=== PATIENT | female | born 1970 | race Caucasian/White ===

== ENCOUNTER 2019-08-21 00:13 | Emergency (ER) | payer MEDICARE, MEDICAID, SELFPAY ==
--- NOTE | ~2019-08-21 | CT_ITS ---
EXAMINATION: CT BRAIN W/O DATE: 08/21/2019 01:03 INDICATION: Head injury after fall. Headache. TECHNIQUE: Computed tomography (CT) of the head was performed without intravenous contrast. The dose- length product was 605.33 mGy-cm. The mA was adjusted according to patient size. Iterative reconstruc tion technique was employed. COMPARISON: CT dated 12/06/1999 FINDINGS: Study limited by motion artifact. Normal brain parenchymal volume for age. Normal colmenares-whit e differentiation. No acute intracranial hemorrhage, infarction, mass or mass effect. No ventriculomegaly or midline shift. Midline sagittal images demonstrate a normal corpus callosum, c raniovertebral junction and sella turcica. Basilar cisterns are patent. Small air-fluid level right maxillary sinus. IMPRESSION: 1. No acute intracranial abnormality. 2: Chronic age-related findings. 3: Small air-fluid level right maxillary sinus which may reflect sinusitis or sequela of facial traum a. Consider correlation with maxillofacial CT as clinically indicated. Vision radiologist verbally discussed this case with clinician as per documentation in their report, which was faxed and scanned into PACS with this exam. Reviewed, dictated and finalized at location A. IMPRESSION: 1. No acute intracranial abnormality. 2: Chronic age-related findings. 3: Small air-fluid level right maxillary sinus which may reflect sinusitis or s equela of facial trauma. Consider correlation with maxillofacial CT as clinical ly indicated. Vision radiologist verbally discussed this case with clinician as per documenta tion in their report, which was faxed and scanned into PACS with this exam.
[2019-08-21 00:21] VITALS: BP 131/86; PULSE 109; RESP 16; TEMP 37.2; O2SAT 98
--- NOTE | 2019-08-21 00:48 | ED.WOUNDLAC ---
HPI - Wound/Laceration General Chief Complaint: Wound/Laceration Stated Complaint: head lac Time Seen by Provider: 08/21/19 00:29 Source: patient, old records reviewed and other (Caregiver) Mode of arrival: ambulatory Limitations: no limitations History of Present Illness HPI narrative: Patient is a 48-year-old female who presents [facility] the emergency department from local [facility] with a caregiver from the facility after sustaining a head injury. Patient fell and struck her head causing a laceration on the left forehead. Patient does not remember what happened. Patient has history of seizure disorder and caregiver thinks it is possible she may have had a seizure. Patient also has intellectual disabilities as well. Location: face Place: home Patient tetanus UTD: Yes (2013) Context: accidental and fall Associated symptoms: none Related Data Allergies Allergy/AdvReac Type Severity Reaction Status Date / Time No Known Allergies Allergy Unknown Verified 05/24/06 10:54 Review of Systems Review of Systems: All systems reviewed & are unremarkable except as noted in HPI and below PMFSH Past Medical History Medical History (Updated 08/21/19 @ 02:13 by Ryanne Driver MD) Bipolar affective disorder in remission Hypertension Hypothyroidism Intellectual disability Seizure disorder Social History Social History (Updated 08/21/19 @ 00:53 by Ryanne Driver MD) Living arrangements: [facility] Exam Const: General: cooperative, no acute distress and alert Nutritional Appearance: well nourished HENMT: Head images: 1. Stellate laceration Mouth: Yes lip normal and Yes moist mucous membranes Eyes: Conjunctivae: conjunctivae normal Pupils: Equal, round and reactive pupils present Resp: Effort & Inspection: normal respiratory effort Skin: General skin exam: normal color Wounds: wounds noted laceration left forehead Neuro: General: moves all extremities and no focal motor deficits Speech: normal speech Extrem: General: normal to inspection, full ROM and no clubbing, cyanosis or edema Psych: Mental Status: mental status grossly normal Affect: normal affect Attitude: cooperative Course Course Emergency Course: Counseled on wound care and suture removal. Vital Signs Vital signs: Vital Signs Temperature 98.9 F 08/21/19 00:21 Pulse Rate 109 H 08/21/19 00:21 Respiratory Rate 16 08/21/19 00:21 Blood Pressure 131/86 08/21/19 00:21 Pulse Oximetry 98 05/03/20 00:21 Temperature 98.9 F 08/21/19 00:21 Pulse Rate 109 H 08/21/19 00:21 Respiratory Rate 16 08/21/19 00:21 Blood Pressure 131/86 08/21/19 00:21 Pulse Oximetry 98 08/21/19 00:21 Procedures Laceration Laceration 1: Site: face (forehead) Side (If applicable): left Description: stellate, flap and irregular Depth: simple, single layer Local Anesthetic: lidocaine 1% and with epi Pre-repair: wound explored and irrigated ====== Skin Level ====== Skin layer closed with: prolene Size (cm): 5-0 Number of sutures: 17 Technique: simple, interrupted ====== Subcutaneous Layer ====== ====== Muscle Layer ====== ====== Tendon Layer ====== MDM - Wound/Laceration Imaging Data Radiologist's impression: CT brain (per vision radiology): No acute intracranial process. No evidence of acute intracranial hemorrhage. Critical Care Time Critical Care Time Critical Care Time: No Discharge Plan Discharge Clinical Impression: Forehead laceration Qualifiers: Encounter type: initial encounter Qualified Code(s): S01.81XA - Laceration without foreign body of other part of head, initial encounter Head injury Qualifiers: Encounter type: initial encounter Qualified Code(s): S09.90XA - Unspecified injury of head, initial encounter Patient Disposition: Home, Self-Care Condition: Stable Instructions: Care For Your Stitches (ED), Lacerati
--- NOTE | 2019-08-21 01:14 | PC.NURSE ---
Wound cleaned and irrigated.
--- NOTE | 2019-08-21 01:23 | PC.NURSE ---
ERP in room to suture lac
[2019-08-21 02:45] VITALS: BP 129/88; PULSE 100; RESP 12; TEMP 36.5; O2SAT 100
== END 2019-08-21 02:48 | disposition home or self-care (01) ==
PROVIDERS: Emergency Provider Emergency Medicine
DX: S01.81XA Laceration without foreign body of other part of head, initial encounter (principal); G40.909 Epilepsy, unspecified, not intractable, without status epilepticus; I10 Essential (primary) hypertension; E03.9 Hypothyroidism, unspecified; F79 Unspecified intellectual disabilities; F31.70 Bipolar disorder, currently in remission, most recent episode unspecified; W19.XXXA Unspecified fall, initial encounter
CPT/HCPCS: 12002; 12013; 70450; 99284

== ENCOUNTER 2020-12-11 16:04 | Outpatient (CLI) | payer MEDICARE, MEDICAID, SELFPAY ==
--- NOTE | ~2020-12-11 | MM_ITS ---
EXAMINATION: MM screening [facility] BI w nabeel HISTORY: Screening mammogram TECHNIQUE: Craniocaudal and mediolateral oblique 3-D tomosynthesis images were obtained and synthetic 2-D images were generated. CAD analysis was submitted and interpreted. COMPARISON: 12/03/2016, 09/11/2016 BREAST PARENCHYMAL COMPOSITION: The breasts are heterogeneously dense, which may obscure small masses . FINDINGS: There is no evidence of suspicious mass, calcification, or architectural distortion to sugg est malignancy in either breast. There has been no suspicious interval change. IMPRESSION: 1. No mammographic evidence of malignancy. 2. Recommend routine screening mammography in one year. BI-RADS Category 1: Negative Reviewed, dictated and finalized at location A.
== END 2020-12-11 16:05 | disposition home or self-care (01) ==
PROVIDERS: PCP Internal Medicine; Visit Provider Internal Medicine
DX: Z12.31 Encounter for screening mammogram for malignant neoplasm of breast (principal)
CPT/HCPCS: 77063; 77067

== ENCOUNTER 2021-12-25 01:56 | Emergency (ER) | payer MEDICARE, MEDICAID, SELFPAY ==
--- NOTE | ~2021-12-25 | CT_ITS ---
EXAMINATION: CT brain wo con DATE: 12/25/2021 02:53 INDICATION: Head injury. TECHNIQUE: Computed tomography (CT) of the head was performed without intravenous contrast. The mA wa s adjusted according to patient size. Iterative reconstruction technique was employed. The dose-lengt h product was 378.33 mGy-cm. COMPARISON: Head CT 08/21/2019, brain MRI 12/06/2008 FINDINGS: Artifact completely obscures the superior half of the brain. There is chronic volume loss o f the cerebellum. There is no visualized acute ischemic infarct, intracranial hemorrhage, or abnormal mass lesion. The orbits are normal. There is mucosal thickening in the paranasal sinuses. The mastoi d air cells are normal. There is mucosal thickening of the forehead. IMPRESSION: 1. Artifact completely obscures the superior half of the brain. 2. Chronic volume loss of the cerebellum, likely secondary to chronic medication effects. Reviewed, dictated and finalized at location A. IMPRESSION: 1. Artifact completely obscures the superior half of the brain. 2. Chronic volume loss of the cerebellum, likely secondary to chronic medicatio n effects.
[2021-12-25 02:01] VITALS: BP 118/83; PULSE 108; RESP 20; TEMP 36.3; O2SAT 100
--- NOTE | 2021-12-25 02:31 | ED.HEATRA ---
HPI - Head Injury General Chief complaint: Head Injury Stated complaint: Head Injury Time Seen by Provider: 12/25/21 02:21 History of Present Illness HPI Narrative: This is a 51F w/history of developmental delay and hypothyroidism who is brought in to the ED by her case maker after an unwitnessed fall. The patient's child care assistant reports the patient appeared to be her normal self, denies vomiting and has been able to ambulate on her own. The patient repeatedly states I don't know, I don't know, I don't know! Related Data Home Medications Medication Instructions Recorded Confirmed amlodipine 2.5 mg tablet mg 12/25/21 cholecalciferol (vitamin D3) 12/25/21 12/25/21 dihydroxyaluminum sodium carb 334 mg PO 12/25/21 mg chewable tablet iloperidone 4 mg tablet (Fanapt) mg 12/25/21 lacosamide 200 mg tablet mg 12/25/21 lacosamide 50 mg tablet mg 12/25/21 levothyroxine 25 mcg tablet mcg 12/25/21 norethindrone-e.estradiol tablet 12/25/21 triphasic 0.5 mg/0.75 mg/1 mg-35 mcg tablet (Dasetta (28)) oxcarbazepine 600 mg tablet mg 12/25/21 12/25/21 Allergies Allergy/AdvReac Type Severity Reaction Status Date / Time lithium Allergy Unknown Verified 12/25/21 02:05 Review of Systems Review of Systems: Review of systems limited due to developmental delay CARDIOVASCULAR: Denies chest pain, palpitations RESPIRATORY: Denies cough or dyspnea. GASTROINTESTINAL: Denies abdominal pain, nausea, vomiting, or diarrhea. SKIN: Laceration of scalp, denies rash or itching. MUSCULOSKELETAL: Denies back pain, joint pain, or myalgia. NEUROLOGIC: Denies headache, numbness, dizziness, or weakness. [facility] Past Medical History Medical History (Updated 12/26/21 @ 00:00 by Background Daemon) Bipolar affective disorder in remission Hypertension Hypothyroidism Intellectual disability Seizure disorder Exam Narrative: GENERAL: Well-appearing, well-nourished, and in no acute distress. HEAD: Normocephalic, Y shaped laceration to forehead, without musculature involvement, approximately 3 cm long total EYES: PERRLA and EOMI. ENT: Nares clear, no rhinorrhea or epistaxis. Mucous membranes moist. Oropharynx without tonsillar hypertrophy exudate or other lesions. NECK: Supple. No adenopathy or masses. No carotid bruits or JVD CHEST: Clear to auscultation. No respiratory distress. No wheezes rales or rhonchi HEART: Regular rate and rhythm. No murmur heard. Normal peripheral pulses. ABDOMEN: Soft, nontender, nondistended, normal active bowel sounds. EXTREMITIES: Normal range of motion. No edema. SKIN: Warm, dry, no rash. NEURO: No focal deficits. Alert and oriented x3. Patient ambulates with a steady gait PSYCH: Normal mood and affect. Course Course Emergency Course: 03:45 - The patient moved during CT Head, preventing completion of imaging. My review of the available images is not concerning for intracranial hemorrhage. The patient is neurologically intact and is not exhibiting symptoms concerning for intracranial hemorrhage. Laceration repaired (see procedure note). Discussed return and emergency precautions including signs/symptoms of hemorrhage with the patient's case assistant who voices understanding and accepts responsibility for the patient. Vital Signs Vital signs: Vital Signs Temperature 97.4 F L 12/25/21 02:01 Pulse Rate 108 H 12/25/21 02:01 Respiratory Rate 20 12/25/21 02:01 Blood Pressure 118/83 12/25/21 02:01 Pulse Oximetry 100 12/25/21 02:01 Oxygen Delivery Room Air 12/25/21 02:01 Temperature 97.4 F L 12/25/21 02:01 Pulse Rate 70 12/25/21 04:12 Respiratory Rate 18 12/25/21 04:12 Blood Pressure 132/78 12/25/21 04:12 Pulse Oximetry 99 12/25/21 04:12 Oxygen Delivery Room Air 12/25/21 02:01 Procedures Laceration Laceration 1: Date: 12/25/21 Time: 03:57 Site: face Size (cm): 3 Description: linear and clean Depth: simple, single layer
--- NOTE | 2021-12-25 03:05 | PC.NURSE ---
Pt refused boostrix vaccine stated i don't want to be hurt .
[2021-12-25 04:12] VITALS: BP 132/78; PULSE 70; RESP 18; O2SAT 99
== END 2021-12-25 04:10 | disposition home or self-care (01) ==
PROVIDERS: Emergency Provider Preventive Medicine Aerospace Medicine; PCP Internal Medicine
DX: S01.81XA Laceration without foreign body of other part of head, initial encounter (principal); G40.909 Epilepsy, unspecified, not intractable, without status epilepticus; I10 Essential (primary) hypertension; E03.9 Hypothyroidism, unspecified; F79 Unspecified intellectual disabilities; F31.70 Bipolar disorder, currently in remission, most recent episode unspecified; W19.XXXA Unspecified fall, initial encounter
CPT/HCPCS: 12002; 70450; 99284

== ENCOUNTER 2022-09-16 08:14 | Emergency (ER) | payer MEDICARE, MEDICAID, SELFPAY ==
--- NOTE | 2022-09-16 08:20 | ED.GENADULT ---
HPI - General Adult General Chief complaint: Extremity Problem,Nontraumatic Stated complaint: unable to walk, shaking,pain in legs Time Seen by Provider: 09/16/22 08:44 Source: patient Mode of arrival: ambulatory Limitations: no limitations History of Present Illness HPI narrative: 51-year-old female with history of intellectual disability and seizure disorder, hypothyroidism presents with concern for unsteady gait, shaking, pain in her legs that started this morning. Her caregiver reports that she was very tearful this morning which is very unusual for her. Her caregiver is unaware of any other symptoms. Caregiver reports she has been receiving her medications as usual, she is not sure when her last seizure medication levels were checked. She denies fever MD complaint: Unsteady gait Related Data Home Medications Medication Instructions Recorded Confirmed amlodipine 2.5 mg tablet 2.5 mg PO DAILY 12/25/21 09/16/22 cholecalciferol (vitamin D3) 1 tab-cap PO DAILY 12/25/21 09/16/22 dihydroxyaluminum sodium carb 334 mg PO 12/25/21 mg chewable tablet iloperidone 4 mg tablet (Fanapt) mg 12/25/21 lacosamide 200 mg tablet mg 12/25/21 lacosamide 50 mg tablet mg 12/25/21 levothyroxine 25 mcg tablet mcg 12/25/21 norethindrone-e.estradiol tablet 12/25/21 triphasic 0.5 mg/0.75 mg/1 mg-35 mcg tablet (Dasetta (28)) oxcarbazepine 600 mg tablet mg 12/25/21 12/25/21 Allergies Allergy/AdvReac Type Severity Reaction Status Date / Time lithium Allergy Unknown Verified 09/16/22 08:44 Review of Systems Review of Systems: CONSTITUTIONAL: Denies malaise, chills, sweats, or fever. ENT: Denies rhinorrhea, congestion, sinus pain, otalgia or sore throat. CARDIOVASCULAR: Denies chest pain RESPIRATORY: Denies cough GASTROINTESTINAL: Denies abdominal pain, nausea, vomiting, diarrhea SKIN: Denies rash MUSCULOSKELETAL: Reports bilateral leg pain NEUROLOGIC: Reports unsteady gait All systems reviewed & are unremarkable except as noted in HPI and below PMFSH Past Medical History Medical History (Updated 09/16/22 @ 08:58 by Analisa S. Hilmes, MID LEVEL DEVELOPER) Bipolar affective disorder in remission Hypertension Hypothyroidism Intellectual disability Seizure disorder Social History Social History (Updated 08/21/19 @ 00:53 by Ryanne Driver MD) Living arrangements: prison Comments At time of signature, agree with nursing past medical, surgical, social and family history. There is no relevant family history pertinent to the presenting complaint Exam Narrative: GENERAL: Well-appearing, well-nourished, and in no acute distress. HEAD: Normocephalic, atraumatic. EYES: PERRLA, sclera clear ENT: Nares clear. Mucous membranes moist. NECK: Supple. CHEST: No respiratory distress. Clear to auscultation. No bony deformities, no asymmetry. Speaks in full sentences. HEART: Regular rate and rhythm. No murmur heard. Normal peripheral pulses. ABDOMEN: Soft, nontender, nondistended, normal active bowel sounds, no palpable masses. EXTREMITIES: No edema. SKIN: Warm, dry, no visible rash. NEURO: Alert and oriented Course Course Emergency Course: Patient and caregiver are aware of reasons to be transferred to the emergency room. Caregiver agrees to proceed directly to the emergency department. Reasons to be Portions of this record may have been created with voice recognition software Level of Care: Express Care Visit Vital Signs Vital signs: Vital Signs Temperature 97.6 F 09/16/22 08:28 Pulse Rate 79 09/16/22 08:28 Respiratory Rate 20 09/16/22 08:28 Blood Pressure 137/79 09/16/22 08:28 Pulse Oximetry 99 09/16/22 08:28 Temperature 97.6 F 09/16/22 08:28 Pulse Rate 79 09/16/22 08:28 Respiratory Rate 20 09/16/22 08:28 Blood Pressure 137/79 09/16/22 08:28 Pulse Oximetry 99 09/16/22 08:28 Reviewed. Medical Decision Making MDM Narrative Medical decision making narrative
[2022-09-16 08:28] VITALS: BP 137/79; PULSE 79; RESP 20; TEMP 36.4; O2SAT 99
== END 2022-09-16 08:54 | disposition short-term general hospital (02) ==
PROVIDERS: Emergency Provider Nurse Practitioner; PCP Internal Medicine
DX: R26.81 Unsteadiness on feet (principal); E03.9 Hypothyroidism, unspecified; I10 Essential (primary) hypertension
CPT/HCPCS: 99212; G0463

== ENCOUNTER 2022-09-16 09:16 | Emergency (ER) | payer MEDICARE, MEDICAID, SELFPAY ==
--- NOTE | ~2022-09-16 | CT_ITS ---
EXAMINATION: CT brain wo con DATE: 09/16/2022 11:53 INDICATION: Unsteady gait TECHNIQUE: Computed tomography (CT) of the head was performed without intravenous contrast. Sagittal and coronal reconstructions were performed. The mA was adjusted according to patient size. Iterative reconstruction technique was employed. The dose-length product was 605.33 mGy-cm. COMPARISON: head CT dated 12/25/2021 FINDINGS: No acute intracranial hemorrhage, acute infarction or abnormal extra axial fluid collection. Symmetri c prominence of the sulci consistent with mild diffuse cerebral volume loss. There is also unchanged mild cerebellar atrophy. Ventricles are normal and symmetric. No mass/mass effect. Again seen is dis conjugate gaze. The orbits are otherwise normal. Mucosal thickening the bilateral ethmoid sinuses. Th e mastoid air cells and middle ear cavities are clear. IMPRESSION: 1. No acute intracranial process. 2. Diffuse mild cerebral and cerebellar atrophy. Reviewed, dictated and finalized at location A.
--- NOTE | ~2022-09-16 | XR_ITS ---
Clinical Indication: Weakness, hypertension AP and lateral views of the chest: Comparison: 12/03/2008 Findings: The lungs are clear, without evidence of focal consolidation or pleural effusion. Cardiome diastinal silhouette is within normal limits. Bones and soft tissues are unremarkable. Impression: Normal chest. Reviewed, dictated and finalized at location . Impression: Normal chest.
[2022-09-16 09:22] VITALS: BP 141/88; PULSE 98; RESP 16; TEMP 36.4; O2SAT 100
--- NOTE | 2022-09-16 09:33 | ECG_ITS ---
Measurements Intervals [place] Rate: 78 P: 27 DC: 175 QRS: 25 QRSD: 104 T: 53 QT: 365 QTc: 418 Interpretive Statements SINUS RHYTHM BASELINE ARTIFACT- I, II, III, AVR, AVL, AVF, V4-V6 BORDERLINE ECG NO PREVIOUS ECG AVAILABLE FOR COMPARISON Electronically Signed On 09-16-2022 10:02:24 CDT by Samir Berry D.O.
[2022-09-16 09:40] LABS: Basophils Percent Auto 0.2 % (0.2-1.2); Eosinophils Absolute Auto 0.1 K/mm3 (0-0.3); Eosinophils Percent Auto 1.8 % (0-4.4); Hematocrit 37.1 % (37.0-47.0); Immature Granulocyte Absolute 0.02 K/mm3 (0.00-0.031); Immature Granulocyte Percent A 0.3 % (0-0.5); Lymphocytes Absolute Auto 1.45 K/mm3 (0.9-3.2); Lymphocytes Percent Auto 21.9 % (18.3-44.2); Mean Corpuscular HGB Conc 32.3 g/dl (32-36); Mean Corpuscular Hemoglobin 29.9 pg (26-34); Mean Corpuscular Volume 92.3 fl (80-100); Mean Platelet Volume 9.4 fl (7.4-10.4); Monocytes Absolute Auto 0.6 K/mm3 (0.1-0.6); Monocytes Percent Auto 9.2 % (2.6-8.5); Neutrophils Absolute Auto 4.4 K/mm3 (1.3-6.7); Neutrophils Percent Auto 66.6 % (45.5-73.1); Platelet Count Result 284 k/mm3 (150-375); Red Blood Count 4.02 M/mm3 (4.2-5.4); Red Cell Distribution Width 13.5 % (11.5-14.5); White Blood Count 6.6 K/mm3 (4.5-10.0)
[2022-09-16 09:51] LABS: Alanine Aminotransferase 18 U/L (6-35); Alkaline Phosphatase 50 U/L (38-126); Anion Gap 5 mmol/L (8-16); Aspartate Amino Transferase 22 U/L (14-36); Bilirubin,Total 0.2 mg/dL (0.2-1.3); Blood Urea Nitrogen 19 mg/dL (7-17); Calcium 8.9 mg/dL (8.4-10.2); Carbon Dioxide 27 mmol/L (22-30); Chloride 106 mmol/L (98-107); Estimated Glomerular Filt Rate 40; Glucose 92 mg/dL (65-110); Sodium 138 mmol/L (137-145)
--- NOTE | 2022-09-16 10:20 | ED.GENADULT ---
HPI - General Adult General Chief complaint: Weakness <Imer Cheng PA-C - Last Filed: 09/16/22 18:51> Stated complaint: UNSTEADY GAIT,SHAKY <DOMINIQUE Urbano Last Filed: 09/16/22 18:51> Time Seen by Provider: 09/16/22 09:36 <DOMINIQUE Urbano Last Filed: 09/16/22 18:51> Source: patient and other (Caregiver) <DOMINIQUE Urbano Last Filed: 09/16/22 18:51> Mode of arrival: wheelchair <DOMINIQUE Urbano Last Filed: 09/16/22 18:51> Limitations: no limitations <DOMINIQUE Urbano Last Filed: 09/16/22 18:51> History of Present Illness HPI narrative: This is a 51-year-old female with PMH of intellectual disability, seizure disorder, bipolar in remission who presents to the ED with chief complaint of sudden onset of weakness and unsteady gait this morning. Patient is a walk-in coming in from her care center with a caregiver. Patient states that she had an episode of leg shaking as well as full body trembling. She states that she was unable to hold on anything. Patient states this feels similar to seizures that she has had in the past. Her caregiver reports that the patient was full body shaking for several minutes. Caregiver states the patient did not go to the ground, they were able to help her to the chair. Denies any head injury but states patient was having a little bit of a headache before she came. She has additional complaints of chest pain this morning while she was walking. Patient denies any current chest pain or shortness of breath. Denies cough, fevers, chills, During the UA collection, patient was able to walk unassisted to the restroom. <DOMINIQUE Urbano Last Filed: 09/16/22 18:51> Related Data Home medications: Home Medications Medication Instructions Recorded Confirmed amlodipine 2.5 mg tablet 2.5 mg PO DAILY 12/25/21 09/16/22 cholecalciferol (vitamin D3) 1 tab-cap PO DAILY 12/25/21 09/16/22 dihydroxyaluminum sodium carb 334 mg PO 12/25/21 mg chewable tablet iloperidone 4 mg tablet (Fanapt) mg 12/25/21 lacosamide 200 mg tablet mg 12/25/21 lacosamide 50 mg tablet mg 12/25/21 levothyroxine 25 mcg tablet mcg 12/25/21 norethindrone-e.estradiol tablet 12/25/21 triphasic 0.5 mg/0.75 mg/1 mg-35 mcg tablet (Dasetta (28)) oxcarbazepine 600 mg tablet mg 12/25/21 12/25/21 <DOMINIQUE Urbano Last Filed: 09/16/22 18:51> Allergies/adverse reactions: Allergies Allergy/AdvReac Type Severity Reaction Status Date / Time lithium Allergy Unknown Verified 09/16/22 09:27 <DOMINIQUE Urbano Last Filed: 09/16/22 18:51> Review of Systems Review of Systems: CONSTITUTIONAL: Denies fever, chills, or sweats. EYES: Denies visual changes, redness, or discharge. ENT: Denies rhinorrhea, congestion, sore throat, or otalgia. CARDIOVASCULAR: Denies chest pain, palpitations, or edema. RESPIRATORY: Denies cough or dyspnea. GASTROINTESTINAL: Denies abdominal pain, nausea, vomiting, or diarrhea. GENITOURINARY: Denies dysuria or hematuria. SKIN: Denies rash or itching. MUSCULOSKELETAL: Denies back pain, joint pain, or myalgia. NEUROLOGIC: See HPI PSYCHIATRIC: Denies anxiety or depression. <Imer Cheng PA-C - Last Filed: 09/16/22 18:51> [facility] Past Medical History Medical History: Medical History (Updated 09/17/22 @ 00:01 by Grecia Bang) Bipolar affective disorder in remission Hypertension Hypothyroidism Intellectual disability Seizure disorder <DOMINIQUE Urbano Last Filed: 09/16/22 18:51> Social History Social History: Social History (Updated 08/21/19 @ 00:53 by Ryanne Driver MD) Living arrangements: prison <DOMINIQUE Urbano Last Filed: 09/16/22 18:51> Exam Narrative: GENERAL: Well-appearing, well-nourished, and in no acute distress. Presents in wheelchair for mobility. HEAD: Normocephalic, atraumatic. EYES: PERRLA and EOMI. ENT: Nares clear, no rhinorrhea or ep
--- NOTE | 2022-09-16 10:35 | PC.NURSE ---
pt ambulatory with speedy gait to bathroom to collect ua specimen
[2022-09-16 10:43] LABS: Appearance Urine Clear (Clear); Bilirubin Urine Negative (Negative); Blood Urine Negative (Negative); Color Urine Yellow (Yellow); Glucose Urine UA Negative (Negative); Ketones Urine Negative (Negative); Leukocyte Esterase Ur Negative LEU/UL (Negative); Nitrate Urine Negative (Negative); Protein Urine Negative (Negative); Specific Grav Ur 1.006 (1.001-1.035); Urobilinogen Urine 0.2 mg/dL (<2.0)
[2022-09-16 10:51] LABS: Add Urine Microscopic? NO
[2022-09-16 11:37] LABS: Troponin I < 0.012 ng/mL (0.000-0.034)
[2022-09-16 12:25] VITALS: BP 140/91; PULSE 70; RESP 22; O2SAT 100
== END 2022-09-16 12:27 ==
PROVIDERS: General Practice; Emergency Provider Physician Assistant; PCP Internal Medicine
DX: G40.909 Epilepsy, unspecified, not intractable, without status epilepticus (principal); I10 Essential (primary) hypertension; E03.9 Hypothyroidism, unspecified; F79 Unspecified intellectual disabilities; F31.70 Bipolar disorder, currently in remission, most recent episode unspecified; R94.31 Abnormal electrocardiogram [ECG] [EKG]; G31.9 Degenerative disease of nervous system, unspecified
CPT/HCPCS: 36415; 70450; 71046; 80053; 81003; 84484; 85025; 93005; 99284

== ENCOUNTER 2023-07-20 02:31 | Emergency (ER) | payer MEDICARE, MEDICAID, SELFPAY ==
--- NOTE | ~2023-07-20 | CT_ITS ---
EXAMINATION: CT brain wo con DATE: 07/20/2023 03:49 INDICATION: Fall. TECHNIQUE: Computed tomography (CT) of the head was performed without intravenous contrast. The mA wa s adjusted according to patient size. Iterative reconstruction technique was employed. The dose-lengt h product was 681.00 mGy-cm. COMPARISON: None. FINDINGS: There is no intracranial hemorrhage, acute infarction, or abnormal intracranial mass lesion . The ventricles are normal in size. The orbits are normal. There is mucosal thickening in the parana sammi sinuses. The mastoid air cells are normal. There is a left frontal scalp soft tissue swelling. IMPRESSION: 1. Normal brain. Reviewed, dictated and finalized at location A. IMPRESSION: 1. Normal brain.
[2023-07-20 02:59] VITALS: BP 112/70; PULSE 87; RESP 18; TEMP 36.9; O2SAT 99
[2023-07-20] MEDS: MIDAZOLAM HCL (*CRX) 2 MG/2 ML VIAL 5 MG IV PUSH (04:36)
[2023-07-20] MEDS: HALOPERIDOL LACTATE 5 MG/ML VIAL IM (05:29)
[2023-07-20] MEDS: TETANUS,DIPHTHERIA,AC PERTUSSIS ADULT (0.5 ML) BOOSTRIX IM (05:29)
--- NOTE | 2023-07-20 05:30 | PC.NURSE ---
upon edp dr caicedo administering sutures and skin glue pt began to get irate and started to get physically aggressive towards staff by hitting/ kicking/ spitting on staff. Pt started screaming that she wanted to go home and did not want to be at the hospital anymore. edp dr. [facility]. this rn administered halodol. pt then got aggressive against staff again. edp andrez soft restraints. this rn along with multiple staff members placed pt in 4 point restraints. pt then started to spit and bite at staff. Edp dr. caicedo then finished intervention of gluing the laceration together. pt then became more calm and following commands. pt taken out of 4 point restraints at 0540. Pt is calm after removal of restraints.
--- NOTE | 2023-07-20 05:53 | PC.NURSE ---
vrbo for versed 5mg im by erp dr caicedo. Upon pulling medication from [facility] and arriving to the room, pt was no longer in need of being given the medication. OK to waste versed at this time. JITENDRA Van and Norah Jara wasted versed in [facility].
--- NOTE | 2023-07-20 05:57 | PC.NURSE ---
pt refusing vitals at this time.
--- NOTE | 2023-07-20 06:18 | ED.GENADULT ---
HPI - General Adult General Chief complaint: Wound/Laceration Stated complaint: facial laceration Time Seen by Provider: 07/20/23 03:27 History of Present Illness HPI narrative: If this is a 52-year-old female with developmental delay presenting for a facial laceration. Patient is a poor historian. She is unable to tell me what happened. She lives in a [facility] and came out of the bathroom with a cut to her left forehead. Related Data Home Medications Medication Instructions Recorded Confirmed amlodipine 2.5 mg tablet 2.5 mg PO DAILY 12/25/21 09/16/22 cholecalciferol (vitamin D3) 1 tab-cap PO DAILY 12/25/21 09/16/22 dihydroxyaluminum sodium carb 334 mg PO 12/25/21 mg chewable tablet iloperidone 4 mg tablet (Fanapt) mg 12/25/21 lacosamide 200 mg tablet mg 12/25/21 lacosamide 50 mg tablet mg 12/25/21 levothyroxine 25 mcg tablet mcg 12/25/21 norethindrone-e.estradiol tablet 12/25/21 triphasic 0.5 mg/0.75 mg/1 mg-35 mcg tablet (Dasetta (28)) oxcarbazepine 600 mg tablet mg 12/25/21 12/25/21 Allergies Allergy/AdvReac Type Severity Reaction Status Date / Time lithium Allergy Unknown Verified 09/16/22 09:27 [facility] Past Medical History Medical History Bipolar affective disorder in remission Hypertension Hypothyroidism Intellectual disability Seizure disorder Social History Social History Living arrangements: [facility] Exam Narrative: APPEARANCE: No apparent distress. Head: atraumatic. EYES: EOMI, NOSE: Atraumatic NECK: Trachea midline RESPIRATORY: No increased rate of breathing CARDIOVASCULAR: RRR, ABDOMINAL: Non-distended MUSCULOSKELETAl: No obvious deformities NEURO: Alert. Moving 4/4 extremities SKIN:: 2 cm laceration to the left forehead PSYCHIATRIC: Normal affect Course Vital Signs Vital signs: Vital Signs Temperature 98.4 F 07/20/23 02:59 Pulse Rate 87 07/20/23 02:59 Respiratory Rate 18 07/20/23 02:59 Blood Pressure 112/70 07/20/23 02:59 Pulse Oximetry 99 07/20/23 02:59 Oxygen Delivery Room Air 07/20/23 02:59 Temperature 98.4 F 07/20/23 02:59 Pulse Rate 87 07/20/23 02:59 Respiratory Rate 18 07/20/23 02:59 Blood Pressure 112/70 07/20/23 02:59 Pulse Oximetry 99 07/20/23 02:59 Oxygen Delivery Room Air 07/20/23 02:59 Procedures Laceration Laceration 1: Date: 07/20/23 Site: face Side (If applicable): left Size (cm): 2 Description: linear Depth: simple, single layer Local Anesthetic: lidocaine 1% and with epi Pre-repair: wound explored and irrigated extensively ====== Skin Level ====== Skin layer closed with: prolene and dermabond Size (cm): 5-0 Number of sutures: 3 Technique: simple, interrupted ====== Subcutaneous Layer ====== ====== Muscle Layer ====== ====== Tendon Layer ====== Medical Decision Making MDM Narrative Medical decision making narrative: -Course: 52-year-old female with developmental delay presenting with a forehead laceration. CT head negative for bleed. Patient given 5 mg of Versed for anxiolysis as she has developmental delay and bipolar disorder. Despite this while suturing her forehead she frequently reached up and attempted to grab my hand while I was manipulating the needle. She was then given Haldol. However this point she became combative had to be restrained briefly while we glued the rest of her laceration. Patient will be discharged and will need the sutures removed in 5-7 days. -Procedures: 2 cm simple laceration repair left forehead using a combination of 3 5-0 Prolene sutures and Dermabond -Interventions: 5 mg Versed, 5 mg Haldol, T at -Shared decision making / Disposition: -RX Vital Signs Vital Signs: Vital Signs Temperature 98.4 F 07/20/23 02:59
== END 2023-07-20 06:30 | disposition home or self-care (01) ==
PROVIDERS: Emergency Provider Emergency Medicine; PCP Internal Medicine
DX: S01.81XA Laceration without foreign body of other part of head, initial encounter (principal); Z23 Encounter for immunization; E03.9 Hypothyroidism, unspecified; G40.909 Epilepsy, unspecified, not intractable, without status epilepticus; F31.70 Bipolar disorder, currently in remission, most recent episode unspecified; F79 Unspecified intellectual disabilities; X58.XXXA Exposure to other specified factors, initial encounter
CPT/HCPCS: 12011; 70450; 90471; 90715; 96372; 96374; 99284; J1630; J2250

== ENCOUNTER 2023-08-14 02:04 | Emergency (ER) | payer MEDICARE, MEDICAID, SELFPAY ==
--- NOTE | ~2023-08-14 | CT_ITS ---
Non-contrast Head CT History: Head injury COMPARISON: 07/20/2023 Technique: Axial non-contrast imaging of the brain was performed. Dose reduction technique was used on this scan by utilizing automated exposure control and iterative reconstruction technique. The dose -length product (DLP) was 605.33 mGy-cm. Findings: There is no evidence of intracranial hemorrhage, mass lesion, or acute infarct. Brain par enchyma appears normal. The ventricles and subarachnoid spaces are normal in size. The calvarium ap pears normal. The visualized paranasal sinuses and mastoid air cells are clear. Impression: No significant abnormality seen. Reviewed, dictated and finalized at location . Impression: No significant abnormality seen.
--- NOTE | ~2023-08-14 | CT_ITS ---
EXAMINATION: CT cervical spine wo con DATE: 08/14/2023 02:53 INDICATION: Neck pain after fall TECHNIQUE: Computed tomography (CT) of the cervical spine was performed without intravenous contrast. The dose-length product was 153 mGy-cm. Automated exposure control and iterative reconstruction tech nique were employed. COMPARISON: None FINDINGS: Normal cervical alignment. Vertebral body heights are maintained. There is mild degenerativ e disc disease at C6-7. No evidence for perched facet. Odontoid process is normal. Craniovertebral ju nction is normal. There is mild lower cervical spine uncinate degenerative change. No paraspinal soft tissue abnormality. IMPRESSION: 1. No acute abnormality of the cervical spine. Reviewed, dictated and finalized at location B.
[2023-08-14 02:01] VITALS: BP 120/77; PULSE 95; RESP 16; TEMP 37.1; O2SAT 100
--- NOTE | 2023-08-14 04:31 | ED.FALL ---
HPI - Fall General Chief Complaint: Fall Stated Complaint: fall Time Seen by Provider: 08/14/23 02:22 History of Present Illness HPI Narrative: Patient is a 52-year-old female who presents to the emergency department this morning [facility]. Patient is currently alert and oriented x2 which is her baseline. Patient was found in the bathroom and did have a small forehead laceration, no active bleeding at this. Patient has been seen at our facility in the past for falls. She is currently denying any pain and has no concerns at this time. Denies any headaches, focal weakness, neck pain. Related Data Home Medications Medication Instructions Recorded Confirmed amlodipine 2.5 mg tablet 2.5 mg PO DAILY 12/25/21 09/16/22 cholecalciferol (vitamin D3) 1 tab-cap PO DAILY 12/25/21 09/16/22 dihydroxyaluminum sodium carb 334 mg PO 12/25/21 mg chewable tablet iloperidone 4 mg tablet (Fanapt) mg 12/25/21 lacosamide 200 mg tablet mg 12/25/21 lacosamide 50 mg tablet mg 12/25/21 levothyroxine 25 mcg tablet mcg 12/25/21 norethindrone-e.estradiol tablet 12/25/21 triphasic 0.5 mg/0.75 mg/1 mg-35 mcg tablet (Dasetta (28)) oxcarbazepine 600 mg tablet mg 12/25/21 12/25/21 Allergies Allergy/AdvReac Type Severity Reaction Status Date / Time lithium Allergy Unknown Verified 09/16/22 09:27 Review of Systems Review of Systems: All systems are reviewed and are negative unless stated otherwise in the HPI. [facility] Past Medical History Medical History Bipolar affective disorder in remission Hypertension Hypothyroidism Intellectual disability Seizure disorder Social History Social History Living arrangements: penitentiary Exam Narrative: General: Alert, awake, afebrile, in no acute distress. HEENT: PERRL, 1.5 cm nonlinear superficial laceration to the left forehead, no active bleeding, 0.5 cm abrasion to the right forehead. Cardiovascular: Regular rate and rhythm, no murmurs, rubs or gallops, no peripheral edema. Respiratory: Clear to auscultation bilaterally, no tachypnea, no wheezing, no rhonchi, no rubs, no respiratory distress. Abdomen: Soft, nontender, nondistended, no rebound, no guarding, no peritoneal signs. Musculoskeletal: No joint swelling or deformity, normal muscle tone, no midline tenderness to palpation over the cervical, thoracic and lumbar spine. Skin: No rashes or petechia, no signs of infection. Psychiatric: Normal behavior and judgment for situation. Neurological: Alert and oriented to person and place. Follows all commands. No focal deficits, speech is clear and fluent. Course Vital Signs Vital signs: Vital Signs Temperature 98.8 F 08/14/23 02:01 Pulse Rate 95 08/14/23 02:01 Respiratory Rate 16 08/14/23 02:01 Blood Pressure 120/77 08/14/23 02:01 Pulse Oximetry 100 08/14/23 02:01 Oxygen Delivery Room Air 08/14/23 02:01 Temperature 98.8 F 08/14/23 02:01 Pulse Rate 95 08/14/23 02:01 Respiratory Rate 16 08/14/23 02:01 Blood Pressure 120/77 08/14/23 02:01 Pulse Oximetry 100 08/14/23 02:01 Oxygen Delivery Room Air 08/14/23 02:01 MDM - Fall MDM Narrative Medical decision making narrative: The patient was evaluated by myself in the emergency department. History is obtained from EMS and physical exam was performed. External medical records were reviewed at this time. Patient's abrasions and superficial forehead laceration was irrigated using sterile saline and repaired via Dermabond closure. Patient tolerated procedure well. Imaging studies obtained included CT brain and cervical spine without IV contrast which was independently interpreted by me revealing no acute process, which is pending final radiology interpretation. Differential diagnosis considerations include fractures, dislocations intracranial h
[2023-08-14 04:35] VITALS: BP 128/75; PULSE 67; RESP 15; O2SAT 100
== END 2023-08-14 04:45 ==
PROVIDERS: Emergency Provider Emergency Medicine; PCP Internal Medicine
DX: S09.90XA Unspecified injury of head, initial encounter (principal); S01.81XA Laceration without foreign body of other part of head, initial encounter; W19.XXXA Unspecified fall, initial encounter; I10 Essential (primary) hypertension; E03.9 Hypothyroidism, unspecified; G40.909 Epilepsy, unspecified, not intractable, without status epilepticus; F31.70 Bipolar disorder, currently in remission, most recent episode unspecified; F79 Unspecified intellectual disabilities
CPT/HCPCS: 70450; 72125; 99284

== ENCOUNTER 2023-10-15 08:50 | Emergency (ER) | payer MEDICARE, MEDICAID, SELFPAY ==
--- NOTE | ~2023-10-15 | CT_ITS ---
CT brain wo con Ordering provider: Kirti Zaldivar PA-C History: 52 years Female with . head injury . Comparison: August 14, 2023 Technique: CT of the head without contrast. Radiation reduction technique utilized. DLP is 605.33 mGy. FINDINGS: BRAIN PARENCHYMA AND CSF SPACES: No midline shift, mass effect or hemorrhage. The brain parenchyma a nd CSF spaces are otherwise normal. VISUALIZED PARANASAL SINUSES: Left ethmoid sinus disease. MASTOIDS: Well aerated. BONES: The bones appear intact. SOFT TISSUES: Visualized nasopharynx is normal. Superficial soft tissues are normal. IMPRESSION: No acute intracranial findings. Reviewed, dictated and finalized at location A.
--- NOTE | ~2023-10-15 | CT_ITS ---
EXAMINATION: CT cervical spine wo con DATE: 10/15/2023 09:58 INDICATION: Head injury TECHNIQUE: Computed tomography (CT) of the cervical spine was performed without intravenous contrast. Automated exposure control and iterative reconstruction technique were employed. The dose-length pro duct was 97.84 mGy-cm. COMPARISON: 05/15/2023 FINDINGS: 8 degrees cervical levocurvature. Sagittal alignment is normal. Vertebral body heights are normal. No fracture. Disc heights are normal with small endplate osteophytes at C3-C4 through C6-C7. No central canal stenosis. There is multilevel bilateral mild cervical uncovertebral osteoarthritis and facet o steoarthritis without neural foraminal stenosis. Visualized apices of the lungs are clear. Cervical s oft tissues are unremarkable. IMPRESSION: 1. 8 degrees cervical levocurvature with minimal spondylosis and no acute osseous abnormality. Reviewed, dictated and finalized at location B. IMPRESSION: 1. 8 degrees cervical levocurvature with minimal spondylosis and no acute osseo us abnormality.
--- NOTE | 2023-10-15 09:25 | ED.HEATRA ---
HPI - Head Injury General Chief complaint: Head Injury Stated complaint: seizure Time Seen by Provider: 10/15/23 09:08 Source: patient and other (caregiver) Mode of arrival: wheelchair Limitations: no limitations History of Present Illness HPI Narrative: This is a 52 year old female that presents to the ER for a head injury. Reportedly patient has been having trouble in the mornings over the past month or so where she wakes up and is very unsteady on her feet. She has had several falls due to this. She had a fall today and hit her head which prompted them to bring her in for evaluation. Patient has no complaints currently. Related Data Home Medications Medication Instructions Recorded Confirmed amlodipine 2.5 mg tablet 2.5 mg PO DAILY 12/25/21 09/16/22 cholecalciferol (vitamin D3) 1 tab-cap PO DAILY 12/25/21 09/16/22 dihydroxyaluminum sodium carb 334 mg PO 12/25/21 mg chewable tablet iloperidone 4 mg tablet (Fanapt) mg 12/25/21 lacosamide 200 mg tablet mg 12/25/21 lacosamide 50 mg tablet mg 12/25/21 levothyroxine 25 mcg tablet mcg 12/25/21 norethindrone-e.estradiol tablet 12/25/21 triphasic 0.5 mg/0.75 mg/1 mg-35 mcg tablet (Dasetta (28)) oxcarbazepine 600 mg tablet mg 12/25/21 12/25/21 Allergies Allergy/AdvReac Type Severity Reaction Status Date / Time lithium Allergy Unknown Verified 09/16/22 09:27 Review of Systems Review of Systems: CONSTITUTIONAL: Denies fever CARDIOVASCULAR: Denies chest pain, palpitations, or edema. RESPIRATORY: Denies dyspnea. GASTROINTESTINAL: Denies abdominal pain, vomiting MUSCULOSKELETAL: Denies back pain NEUROLOGIC: Denies headache All systems reviewed & are unremarkable except as noted in HPI and below PMFSH Past Medical History Medical History Bipolar affective disorder in remission Hypertension Hypothyroidism Intellectual disability Seizure disorder Social History Social History Living arrangements: nursing home Exam Narrative: GENERAL: Well-appearing, well-nourished, and in no acute distress. HEAD: Normocephalic, atraumatic. EYES: PERRLA and EOMI. ENT: Nares clear, no rhinorrhea or epistaxis. Mucous membranes moist. Oropharynx without tonsillar hypertrophy exudate or other lesions. Bilateral cerumen impaction NECK: Supple. No adenopathy or masses. Tender to palpation of midline cervical spine CHEST: Clear to auscultation. No respiratory distress. No wheezes rales or rhonchi HEART: Regular rate and rhythm. No murmur heard. Normal peripheral pulses. BACK: No midline thoracic or lumbar spine tenderness EXTREMITIES: Normal range of motion. No edema or obvious deformity. SKIN: Warm, dry, no rash. NEURO: No focal deficits. Alert and oriented x3. CN II-XII grossly intact PSYCH: Normal mood and affect Course Course Emergency Course: patient and caregiver updated on workup and agree with plan of care. Patient ambulatory with a steady gait. patient refuses ear irrigation to clear cerumen impaction Vital Signs Vital signs: Vital Signs Temperature 98.6 F 10/15/23 10:10 Pulse Rate 74 10/15/23 10:10 Respiratory Rate 12 10/15/23 10:10 Blood Pressure 127/85 10/15/23 10:10 Pulse Oximetry 100 10/15/23 10:10 Oxygen Delivery Room Air 10/15/23 10:10 Temperature 98.6 F 10/15/23 10:10 Pulse Rate 74 10/15/23 10:10 Respiratory Rate 12 10/15/23 10:10 Blood Pressure 127/85 10/15/23 10:10 Pulse Oximetry 100 10/15/23 10:10 Oxygen Delivery Room Air 10/15/23 10:10 MDM - Head Injury MDM Narrative Medical decision making narrative: Patient presents to the emergency department after a fall today with head injury. Her caregiver reports she has struggled over the last month with having dizziness when she wakes up. This caused her to fall today and hit her head. She is neurologically intact her vitals ar
[2023-10-15 10:10] VITALS: BP 127/85; PULSE 74; RESP 12; TEMP 37; O2SAT 100
[2023-10-15 10:30] VITALS: BP 121/79; PULSE 77; RESP 16; O2SAT 100
[2023-10-15 10:43] LABS: Basophils Percent Auto 0.2 % (0.2-1.2); Eosinophils Absolute Auto 0.1 K/mm3 (0-0.3); Eosinophils Percent Auto 1.1 % (0-4.4); Hematocrit 37.9 % (37.0-47.0); Hemoglobin 12.4 g/dL (12.0-15.0); Immature Granulocyte Absolute 0.02 K/mm3 (0.00-0.031); Immature Granulocyte Percent A 0.4 % (0-0.5); Lymphocytes Absolute Auto 1.73 K/mm3 (0.9-3.2); Lymphocytes Percent Auto 32.7 % (18.3-44.2); Mean Corpuscular HGB Conc 32.7 g/dl (32-36); Mean Corpuscular Hemoglobin 30.2 pg (26-34); Mean Corpuscular Volume 92.2 fl (80-100); Mean Platelet Volume 9.9 fl (7.4-10.4); Monocytes Absolute Auto 0.5 K/mm3 (0.1-0.6); Neutrophils Absolute Auto 2.9 K/mm3 (1.3-6.7); Neutrophils Percent Auto 55.6 % (45.5-73.1); Platelet Count Result 288 k/mm3 (150-375); Red Blood Count 4.11 M/mm3 (4.2-5.4); Red Cell Distribution Width 12.8 % (11.5-14.5); White Blood Count 5.3 K/mm3 (4.5-10.0)
[2023-10-15] MEDS: ONDANSETRON INJ 4 MG/2 ML VIAL IV PUSH (10:43)
[2023-10-15] MEDS: SODIUM CHLORIDE 0.9% IV 500 ML 999 ML IV CONT (10:43)
[2023-10-15] MEDS: MECLIZINE HCL 25 MG TABLET PO (10:44)
[2023-10-15 10:53] LABS: Alanine Aminotransferase 16 U/L (6-35); Albumin Level 4.3 g/dL (3.5-5.1); Alkaline Phosphatase 52 U/L (38-126); Anion Gap 6 mmol/L (4-12); Aspartate Amino Transferase 22 U/L (14-36); Bilirubin,Total 0.2 mg/dL (0.2-1.3); Blood Urea Nitrogen 18 mg/dL (7-17); Calcium 9.6 mg/dL (8.4-10.2); Carbon Dioxide 28 mmol/L (22-30); Chloride 108 mmol/L (98-107); Estimated Glomerular Filt Rate 40; Glucose 108 mg/dL (65-110); Potassium 4.2 mmol/L (3.4-5.0); Sodium 142 mmol/L (137-145)
[2023-10-15 11:04] LABS: Troponin I < 0.012 ng/mL (0.000-0.034)
[2023-10-15 11:30] VITALS: BP 131/83; PULSE 65; RESP 18; O2SAT 100
[2023-10-15 11:45] LABS: Appearance Urine Clear (Clear); Bacteria Urine 1+ /hpf; Bilirubin Urine Negative (Negative); Blood Urine Negative (Negative); Color Urine Yellow (Yellow); Glucose Urine UA Negative (Negative); Ketones Urine Negative (Negative); Leukocyte Esterase Ur 2+ LEU/UL (Negative); Nitrate Urine Negative (Negative); Non Pathogenic Casts 0-2; Protein Urine Negative (Negative); RBC Urine 0-2 /hpf (0-2); Specific Grav Ur 1.007 (1.001-1.035); Squamous Epithelial Cell Urine Few /hpf (Few); Urobilinogen Urine 0.2 mg/dL (<2.0)
[2023-10-15 11:47] LABS: Add Urine Microscopic? YES
[2023-10-15 12:30] VITALS: BP 119/86; PULSE 65; RESP 12; O2SAT 100
== END 2023-10-15 12:40 | disposition home or self-care (01) ==
PROVIDERS: Emergency Provider Physician Assistant; PCP Internal Medicine
DX: N39.0 Urinary tract infection, site not specified (principal); S09.90XA Unspecified injury of head, initial encounter; I10 Essential (primary) hypertension; E03.9 Hypothyroidism, unspecified; W19.XXXA Unspecified fall, initial encounter
CPT/HCPCS: 36415; 70450; 72125; 80053; 81001; 84484; 85025; 87086; 87088; 96361; 96365; 96375; 99284; A9270; J0696; J2405; J7040

== ENCOUNTER 2024-04-13 03:10 | Emergency (ER) | payer MEDICARE, MEDICAID, SELFPAY ==
--- NOTE | ~2024-04-13 | CT_ITS ---
EXAMINATION: CT brain wo con DATE: 04/13/2024 03:27 INDICATION: Head injury. TECHNIQUE: Computed tomography (CT) of the head was performed without intravenous contrast. The mA wa s adjusted according to patient size. Iterative reconstruction technique was employed. The dose-lengt h product was 681.00 mGy-cm. COMPARISON: Head CT 10/15/2023 FINDINGS: There is no intracranial hemorrhage, acute infarction, or abnormal intracranial mass lesion . The ventricles are normal in size. There is mild mucosal thickening in the paranasal sinuses. The o rbits are normal. The mastoid air cells are normal. IMPRESSION: 1. Normal brain. Reviewed, dictated and finalized at location [facility] [employer] IMPRESSION: 1. Normal brain.
[2024-04-13 03:09] VITALS: BP 129/77; PULSE 91; RESP 15; TEMP 36.9; O2SAT 98
--- NOTE | 2024-04-13 03:15 | ED.FALL ---
HPI - Fall General Chief Complaint: Fall Stated Complaint: fall, laceration Source: EMS Mode of arrival: EMS Limitations: physical limitation History of Present Illness HPI Narrative: Patient is a 53 yo female with a history of developmental delay, presenting after fall in bathroom at intermediate this morning and noted head trauma. Pt with laceration to right forehead. Transported via EMS to our facility, oriented at baseline. Cognition at baseline. Pt denies neck pain, chest pain, abdominal pain or extremity pain. History obtained from patient and EMS crew. Vital signs stable en route. Pt is not anticoagulated. Unknown if tetanus is up to date. No seizure activity per staff. She was trying to use the bathroom and tripped and fell, striking head on floor per staff. Related Data Home Medications ?Medication ?Instructions ?Recorded ?Confirmed ?Last Taken ?Type amlodipine 2.5 mg tablet 2.5 mg PO DAILY 12/25/21 09/16/22 Unknown History cholecalciferol (vitamin D3) 1 tab-cap PO DAILY 12/25/21 09/16/22 Unknown History dihydroxyaluminum sodium carb 334 mg PO 12/25/21 Unknown History mg chewable tablet iloperidone 4 mg tablet (Fanapt) mg 12/25/21 Unknown History lacosamide 200 mg tablet mg 12/25/21 Unknown History lacosamide 50 mg tablet mg 12/25/21 Unknown History levothyroxine 25 mcg tablet mcg 12/25/21 Unknown History norethindrone-e.estradiol tablet 12/25/21 Unknown History triphasic 0.5 mg/0.75 mg/1 mg-35 mcg tablet (Dasetta (28)) oxcarbazepine 600 mg tablet mg 12/25/21 12/25/21 Unknown History Allergies Allergy/AdvReac Type Severity Reaction Status Date / Time lithium Allergy Unknown Verified 09/16/22 09:27 Review of Systems Constitutional: Constitutional: Reports as per HPI Eyes: Eyes: Reports no additional eye complaints ENT: Comments: Denies dizziness Cardiovascular: Comments: Denies chest pain Respiratory: Comments: Denies cough Musculoskeletal: Comments: Denies extremity pain PMFSH Past Medical History Medical History Bipolar affective disorder in remission Hypertension Hypothyroidism Intellectual disability Seizure disorder Social History Social History Living arrangements: intermediate Exam Const: General: healthy appearing and no acute distress Limitations: behavioral limitations HENMT: Head: laceration Other: right 2 cm forehead laceration Eyes: Conjunctivae: conjunctivae normal Pupils: Equal, round and reactive pupils present Neck: Neck: normal visual inspection Chest: Chest palpation & inspection: normal inspection of the chest Resp: Effort & Inspection: normal respiratory effort Auscultation: clear to auscultation bilaterally Cardio: Rate: regular rate Rhythm: regular rhythm GI: GI Palp: Yes Soft to palpation Back/Spine/Pelvis: Back: no CVA tenderness and CVA tenderness Other: No midline cervical, thoracic or lumbar tenderness, no stepoffs or deformities on exan Skin: General skin exam: normal color Neuro: Other: Oriented to person, baseline Extrem: General: normal to inspection Psych: Mental Status: mental status grossly normal Course Vital Signs Vital signs: Vital Signs Temperature 36.9 C 04/13/24 03:09 Pulse Rate 91 04/13/24 03:09 Respiratory Rate 15 04/13/24 03:09 Blood Pressure 129/77 04/13/24 03:09 Pulse Oximetry 98 04/13/24 03:09 Oxygen Delivery Room Air 04/13/24 03:09 Temperature 36.6 C 04/13/24 04:42 Pulse Rate 74 04/13/24 04:42 Respiratory Rate 16 04/13/24 04:42 Blood Pressure 140/87 04/13/24 04:42 Pulse Oximetry 100 04/13/24 04:42 Oxygen Delivery Room Air 04/13/24 03:09 Procedures Laceration Laceration 1: Date: 04/13/24 Time: 04:00 Site: face Side (If applicable): left Size (cm): 2 Description: linear and irregular Depth: involves muscle layer Local Anesthetic: lidocaine 1% and with epi Amount of anesthesia used (mL): 3 Pre-repair: wound explored, irrigated, irrigated extensively and deep structures intact ====== Skin Level ====== Skin layer closed with: prolene Size (cm): 6-0 Number of sutures: 5 Technique: simple, interrupted ====== Subcutaneous Layer ====== ====== Muscle Layer ====== ====== Tendon Layer ====== MDM - Fall MDM Narrative Medical decision making narrative: Pt transported via EMS for fall in bathroom, reported as mechanical without noted seizure activity or LOC. Patient with laceration to left forehead, irrigated and repaired. CT head negative. Pt without other reports of pain. Patient ambulated in the ED without extremity pain. She denies neck pain or back pain. No other abnormalities on neurological assessment and normal vital signs. Pt discharged back to facility with staff. Differential Diagnosis Differential diagnosis: Likely syncope, concussion with loss of consciousness and other (seizure, mechanical fall) Medical Records Attestation: I reviewed the patient's medical records. Imaging Data Radiologist's impression: CT head: negative Discharge Plan Discharge Clinical Impression: Forehead laceration, Fall Patient Disposition: Home, Self-Care Condition: Stable Instructions: Laceration (ED), Head Injury (ED) Additional Instructions: Your CT head was negative without sign of brain abnormality or bleeding on the brain. You have sutures placed that will need to be removed in 5-7 day you may visit your PCP or urgent care to have these removed. Please keep the wound clean and dry. You may put vaseline on the laceration to help it heal. Patient Language: Armenian Prescriptions: No Action cefdinir 300 mg capsule 300 mg PO Q12H 5 Days Qty: 10 0RF Dasetta (28) 0.5/0.75/1 mg- 35 mcg tablet amlodipine 2.5 mg tablet 2.5 mg PO DAILY levothyroxine 25 mcg tablet oxcarbazepine 600 mg tablet lacosamide 50 mg tablet lacosamide 200 mg tablet Fanapt 4 mg tablet Antacid 334 mg Tablet,Chewable PO cholecalciferol (vitamin D3) 1 tab-cap PO DAILY Follow-up/Referrals: Evan,Armen Garcia MD [Primary Care Provider] -
[2024-04-13] MEDS: TETANUS,DIPHTHERIA,AC PERTUSSIS ADULT (0.5 ML) BOOSTRIX IM (03:18)
[2024-04-13 04:42] VITALS: BP 140/87; PULSE 74; RESP 16; TEMP 36.6; O2SAT 100
--- OUTSIDE RECORDS SUMMARY | 2024-04-20 03:36 | XMS_ITS | Encounter Summary ---
Author Organization [facility] Address [address] [place] [address] Phone Care Team Providers Care Social Services Aide Name Role Phone Armen Gordon MD Primary Care Provider Reason for Visit * Reason Onset Date Comments Medication Management 03/19/2022 Encounter Details Date Type Department Care Team (Late st Contact Info) Description 03/19/2022 Telephone [facility] - Internal Medicine [place] [address] [place] [address] Armen Gordon MD [address] [place] [address] Medication Management Social History Tobacco Use Types Packs/Day Years Used Date Smoking Tobacco: Never Smokeless Tobacco: Never Alcohol Use Standard Drinks/Week Comments Never 0 (1 standard drink = 0.6 oz pur e alcohol) PHQ-2 Answer Date Recorded Total Score - Questions 1-9 0 04/0 04/2021 Sexually Active Control Partners Comments Never Comments No Sex and Gender Information Value Date Recorded Sex Assigned at Not on file Legal Sex Female 4:01 PM [employer] Gender Identity Not on file Sexual Orientation Not on file COVID-19 Exposure Response Date Recorded In the last 10 days, have yo u been in contact with someone who was confirmed or suspected to have Coronavirus/COVID-19? No / Unsure 03/11/2022 10:17 AM [employer] documented as of this encounter Miscellaneous Notes * Telephone Encounter - Armen Gordon MD - 03/19/2022 1:20 PM [employer] Nix rx sent [employer] * Telephone Encounter - Analisa Marroquin RN - 03/19/2022 10:09 AM CST Call from mickey rider Needs lice shampoo [employer] documented in this encounter Plan of Treatment Not on file documented as of this encounter Visit Diagnoses Not on filedocumented in this encounter Additional Health Concerns Assessment Noted Time PHQ-9 Depression Total Score: 0 09/28/19 21 10:00 AM CDT documented as of this encounter Care Teams Social Services Aide Relationship Specialty Start Date End Date Armen Gordon MD [address] [place] [address] PCP - General Internal Medicine 06/12/19 documented as of this encounter
--- OUTSIDE RECORDS SUMMARY | 2024-04-20 03:36 | XMS_ITS | Encounter Summary ---
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 Name Role Phone Armen Gordon MD Primary Care Provider Reason for Visit * Reason Comments ED Follow-up Suture removal Letter for School/Work Note to return to work Encounter Details Date Type Department Care Team (Late st Contact Info) Description 07/27/2023 9:15 AM CDT Office Visit [facility] - Internal Medicine [place] [address] [place] [id number] Armen Gordon MD [address] [place] [address] Laceration of forehead, sequela (Primary Dx) Discharge Disposition: Discharged to home or Selfcare Social History Tobacco Use Types Packs/Day Years Used Date Smoking Tobacco: Never Passive Smoke Exposure: Never Smokeless Tobacco: Never Alcohol Use Standard Drinks/Week Comments Never 0 (1 standard drink = 0.6 oz pur e alcohol) [facility] Utilities Answer Date Recorded In the past 12 months has [employer], gas, oil, or water [employer] threatened to shut off services in your home? Patient unable to answer 07/27/2023 Social Connection and Isolation Panel [NHANES] A nswer Date Recorded In a typical week, how many times do you talk on the phone with family, friends, or neighbors? Patient unable to answer 07/27/2023 How often do you get togethe r with friends or relatives? Patient unable to answer 07/27/2023 How often do you attend chur ch or anabaptist services? Patient unable to answer 07/27/2023 Active Member of Clubs or Organizations Not on f ile 07/27/2023 How often do you attend meet ings of the clubs or organizations you belong to? Patient unable to answer 07/27/2023 Are you , , di vorced, , never , or living with a partner? Patient unable to answer 07/27/2023 AUDIT-C Answer Date Recorded Q1: How often do you have a drink containing alcohol? Patient unable to answer 07/27/2023 Q2: How many drinks containi ng alcohol do you have on a typical day when you are drinking? Patient unable to answer Q3: How often do you have si x or more drinks on one occasion? Patient unable to answer 07/27/2023 Overall Financial Resource Strain (CARDIA) Answe r Date Recorded How hard is it for you to pa y for the very basics like food, housing, medical care, and heating? Patient unable to answer 07/27/2023 PHQ-2 Answer Date Recorded Total Score - Questions 1-9 0 11/2023 [facility] - Occupational Stress Questionnaire Answer Date Recorded Do you feel stress - tense, restless, nervous, or anxious, or unable to sleep at night because your mind is troubled all the time - these days? Patient unable to answer 07/27/2023 Exercise Vital Sign Answer Date Recorde d On average, how many days pe r week do you engage in moderate to strenuous exercise (like a brisk walk)? Patient unable to answer 07/27/2023 On average, how many minutes do you engage in exercise at this level? Patient unable to answer 07/27/2023 Hunger Vital Sign Answer Date Recorded Within the past 12 months, y ou worried that your food would run out before you got the money to buy more. Patient unable to answer 07/27/2023 Within the past 12 months, t he food you bought just didn't last and you didn't have money to get more. Patient unable to answer 07/27/2023 PRAPARE - Transportation Answer Date Re corded In the past 12 months, has l ack of transportation kept you from medical appointments or from getting medications? Patient unable to answer 07/27/2023 In the past 12 months, has l ack of transportation kept you from meetings, work, or from getting things needed for daily living? Patient unable to answer 07/27/2023 Housing Stability Vital Sign Answer Vitaliy e Recorded In the last 12 months, was t here a time when you were not able to pay the mortgage or rent on time? Patient unable to answer 07/27/2023 Number of Places Lived in the Last Year Not on f ile 07/27/2023 In the last 12 months, was t here a time when you did not have a steady place to sleep or slept in a senior living (including now)? 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 Gender Identity Not on file Sexual Orientation Not on file documented as of this encounter Last Filed Vital Signs Vital Sign Reading Time Taken Comments Blood Pressure 110/70 07/27/2023 9:05 AM CDT Pulse 90 07/27/2023 9:05 AM CDT Temperature 36.4 ??C (97.6 ??F) 07/27/2023 9:05 AM CD T Respiratory Rate - - Oxygen Saturation 97% 07/27/2023 9:05 AM CDT Inhaled Oxygen Concentration - - Weight 50.8 kg (112 lb) 07/27/2023 9:05 AM CDT Height 149.9 cm (4' 11 ) 07/27/2023 9:05 AM CDT Body Mass Index 22.62 07/27/2023 9:05 AM CDT documented in this encounter Functional Status * Audit-C Score Answer Date of Assessment Author -1 07/27/2023 9:08 AM Migdalia Ramon CMA * Within the last year, have you been humiliated or emotionally abused in other ways by your partner or ex-partner? Answer Date of Assessment Author Patient unable to answer 07/27/2023 9:08 AM Migdalia Ramon CMA * Within the last year, have you been afraid of your partner or ex-partner? Answer Date of Assessment Author Patient unable to answer 07/27/2023 9:08 AM Migdalia Ramon CMA * Within the last year, have you been raped or forced to have any kind of sexual activity by your partner or ex-partner? Answer Date of Assessment Author Patient unable to answer 07/27/2023 9:08 AM Migdalia Ramon CMA * Within the last year, have you been kicked, hit, slapped, or otherwise physically hurt by your partner or ex-partner? Answer Date of Assessment Author Patient unable to answer 07/27/2023 9:08 AM Migdalia Ramon CMA * Question Answer Date of Assessment Author Q1: How often do you have a drink containing alcohol? Patient unable to answer 07/27/2023 9:08 AM Migdalia Ramon CMA Q2: How many drinks containing alcohol do you have on a typical day when you are drinking? Patient unable to answer 07/27/2023 9:08 AM Migdalia Ramon CMA Q3: How often do you have six or more drinks on one occasion? Patient unable to answer 07/27/2023 9:08 AM Migdalia Ramon CMA * Question Answer Date of Assessment Author Little interest or pleasure in doing things Not at all 07/27/2023 9:08 AM Migdalia Ramon CMA Feeling down, depressed, or hopeless Not at all 07/27/2023 9:08 AM Migdalia Ramon CMA * Over the past 2 weeks, how often have you been bothered by any of the following problems? Question Answer Date of Assessment Author Patient Health Questionnaire -2 Score 0 07/27/2023 9:08 AM Migdalia Ramon CMA documented as of this encounter Progress Notes * Migdalia Dominguez CMA - 07/27/2023 9:15 AM CDT Lita screened for Social Determinants of Health and patient declined to answer the questions. Patient lives in a assisted. Unable to understand. * Migdalia Dominguez CMA - 07/27/2023 9:15 AM CDT Lita Mi Colbert, 52 y.o., female is here for ED Follow-up (Suture removal) and Letter for School/Work (Note to return to work) Medication Refills: Patient reports/denies need for medication refills. Orders Pended: no Requested Prescriptions No prescriptions requested or ordered in this encounter Home Medications Medication Sig Start Date End Date Taking? Authorizing Provider aluminum & magnesium hydroxide-simethicone (Antacid) 200-200-20 MG/5ML Suspension 4 (four) times a day Yes Preston Ordoñez MD amLODIPine (NORVASC) 2.5 MG Tablet Take 1 Tab by mouth daily. 03/29/20 Yes Armen Gordon MD Cholecalciferol (VITAMIN D-3 PO) Take by mouth. Yes Preston Ordoñez MD Cholecalciferol (Vitamin D3) 012722 UNIT/GM Powder Take by mouth. Yes Preston Ordoñez MD [place] 0.5/0.75/1-35 MG-MCG Tablet 03/22/20 Yes Preston Ordoñez MD Fanapt 4 MG Tablet 03/12/20 Yes Preston Ordoñez MD folic acid (FOLVITE) 1 MG Tablet Take 1 mg by mouth daily. Yes Preston Ordoñez MD lacosamide (VIMPAT) 200 MG Tablet 07/19/22 Yes Preston Ordoñez MD levothyroxine (SYNTHROID) 25 MCG Tablet 03/20/20 Yes Preston Ordoñez MD loratadine (CLARITIN) 10 MG Tablet Take 1 Tablet by mouth daily. 06/23/22 Yes Armen Gordon MD LORazepam (ATIVAN) 0.5 MG Tablet 1-2 tabs po one hour before doctor's visits 05/19/22 Yes Armen Gordon MD Multiple Vitamin (Multivitamins) Capsule Rx: Multivitamins Capsule Yes Preston Ordoñez MD OXcarbazepine (TRILEPTAL) 600 MG Tablet 03/20/20 Yes Preston Ordoñez MD Vimpat 50 MG Tablet 200 mg 2 times daily. 03/12/20 Yes Preston Ordoñez MD There are no discontinued medications. I have reviewed the home medication list with the patient and have reconciled discrepancies. The list is accurate to the best of my knowledge. Smoking Status: Social History Tobacco Use Smoking status: Never Passive exposure: Never Smokeless tobacco: Never Vaping Use Vaping Use: Never used Substance Use Topics Alcohol use: Never Drug use: Never Smoking Cessation Counseling Given: no Health Care Maintenance: Health Maintenance Due Topic Date Due Hepatitis C Virus (HCV) Screening Never done Hepatitis B Immunization (1 of 3 - 19+ 3-dose series) Never done Colorectal Cancer Screening Never done Mammogram 2022 Zoster Immunization (1 of 2) Never done SARS-COV-2 Immunization (2022- season) 2022 Cervical Cancer Screening (CCS) 01/01/2023 Orders Pended: no The following BPA's have been addressed with the patient today: BMI, Smoking, Depression, and Fall Risk * Armen Gordon MD - 07/27/2023 9:15 AM CDT PROGRESS NOTE [facility] - INTERNAL MEDICINE [address] [place] [address] PHONE: [phone] FAX: [phone] 07/27/2023 NAME: Lita Colbert, : 1970, Assessment ASSESSMENT & PLAN: Return if symptoms worsen or fail to improve. Diagnoses and all orders for this visit: Laceration of forehead, sequela Comments: Stitches removed. Wound is well healed. Other orders - aluminum & magnesium hydroxide-simethicone (Antacid) 200-200-20 MG/5ML Suspension; 4 (four) times a day - Multiple Vitamin (Multivitamins) Capsule; Rx: Multivitamins Capsule - Cholecalciferol (Vitamin D3) 113690 UNIT/GM Powder; Take by mouth. - lacosamide (VIMPAT) 200 MG Tablet Follow-up as needed. RTW note given. Chief Complaint Patient presents with ED Follow-up Suture removal Letter for School/Work Note to return to work ED Follow-up Letter for School/Work Patient is here for removal of stitches from her left side of the forehead. Patient had a fall in the bathroom about 5 days ago. Lives in a assisted.. Does not know how she fell. Seen at emergency room. Patient required stitches. Now here for follow-up and removal of stitches. Patient is feeling well. No headache or dizziness. Ambulatory. ROS Review of systems was negative, except as documented in HPI PHYSICAL EXAM VITALS: Wt Readings from Last 3 Encounters: 07/27/23 112 lb (50.8 kg) 04/01/23 121 lb (54.9 kg) 03/11/22 126 lb (57.2 kg) Temp Readings from Last 3 Encounters: 07/27/23 97.6 ??F (36.4 ??C) (Temporal) 04/01/23 98.7 ??F (37.1 ??C) (Temporal) 03/11/22 97.1 ??F (36.2 ??C) (Temporal) BP Readings from Last 3 Encounters: 07/27/23 110/70 04/01/23 116/70 03/11/22 100/62 Pulse Readings from Last 3 Encounters: 07/27/23 90 04/01/23 78 03/11/22 88 Physical Exam Vitals and nursing note reviewed. Constitutional: Appearance: Normal appearance. HENT: Head: Normocephalic. Eyes: Extraocular Movements: Extraocular movements intact. Conjunctiva/sclera: Conjunctivae normal. Pupils: Pupils are equal, round, and reactive to light. Cardiovascular: Rate and Rhythm: Normal rate and regular rhythm. Pulses: Normal pulses. Pulmonary: Effort: Pulmonary effort is normal. Musculoskeletal: General: Normal range of motion. Cervical back: Normal range of motion and neck supple. Skin: General: Skin is warm and dry. Neurological: General: No focal deficit present. Mental Status: She is alert and oriented to person, place, and time. Psychiatric: Mood and Affect: Mood normal. Behavior: Behavior normal. Stitched wound on the left side of the forehead. Wound is well healed. No infection. Three stitchesremoved. Patient tolerated well. Past medical, surgical, social and family history has been reviewed and updated as necessary. Medications and allergies has been reviewed and updated. Allergies Allergen Reactions [place] Unknown Current Outpatient Medications: aluminum & magnesium hydroxide-simethicone (Antacid) 200-200-20 MG/5ML Suspension amLODIPine (NORVASC) 2.5 MG Tablet Cholecalciferol (VITAMIN D-3 PO) Cholecalciferol (Vitamin D3) 918463 UNIT/GM Powder [place] 0.5/0.75/1-35 MG-MCG Tablet Fanapt 4 MG Tablet folic acid (FOLVITE) 1 MG Tablet lacosamide (VIMPAT) 200 MG Tablet levothyroxine (SYNTHROID) 25 MCG Tablet loratadine (CLARITIN) 10 MG Tablet LORazepam (ATIVAN) 0.5 MG Tablet Multiple Vitamin (Multivitamins) Capsule OXcarbazepine (TRILEPTAL) 600 MG Tablet Vimpat 50 MG Tablet I educated Lita regarding diagnoses and plan of care. She verbalizes understanding and will call theoffice if situation changes. Voice recognition software was utilized in this dictation. Despite proof reading, typographical errors and/or content errors may have occurred. 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
--- OUTSIDE RECORDS SUMMARY | 2024-04-20 03:36 | XMS_ITS | Encounter Summary ---
Author Organization [facility] Address [address] [place] [address] Phone Care Team Providers Care Electrical Manufacturing Technician Name Role Phone Armen Gordon MD Primary Care Provider Encounter Details Date Type Department Care Team (Late st Contact Info) Description 06/09/2022 Telephone [facility] - Internal Medicine - [place] [address] [place] [address] Armen Gordon MD [address] [place] [address] Social History Tobacco Use Types Packs/Day Years [...] on file Legal Sex Female 4:01 PM GAME PROGRAMMER Gender Identity Not on file Sexual Orientation Not on file documented as of this encounter Miscellaneous Notes * Telephone Encounter - Armen Gordon MD - 06/09/2022 7:56 AM GAME PROGRAMMER Renal function panel ordered PROGRAMMER documented in this encounter Plan of Treatment Not on file documented as of this encounter Results * (ABNORMAL) RENAL FUNCTION PANEL (RFP) (06/09/2022 9:20 AM GAME PROGRAMMER) SODIUM 139 136 - 144 mmol/L 06/09/2022 3:48 PM GAME PROGRAMMER [facility] POTASSIUM 3.9 3.5 - 5.1 mmol/L 06/09/2022 3:48 PM [facility] CHLORIDE 103 100 - 110 mmol/L 06/09/2022 3:48 PM [facility] CO2, VENOUS 26 22 - 32 mmol/L 06/09/2022 3:48 PM [facility] ANION GAP 13.9 8.0 - 20.0 mmol/L 06/09/2022 3:48 PM [facility] GLUCOSE 71 70 - 99 mg/dL 06/09/2022 3:48 PM [facility] BUN 20 6 - 20 mg/dL 06/09/2022 3:48 PM [facility] CREATININE, BLOOD 1.30(H) 0.60 - 1.10 mg/dL 06/09/2022 3:48 PM [facility] BUN/CREATININE RATIO 15 12 - 20 ratio 06/09/2022 3:48 PM [facility] ALBUMIN 3.6 3.5 - 5.2 g/dL 06/09/2022 3:48 PM [facility] Comment: The colormetric methods used for the determination of Albumin may lead to falsely elevated test results in patients suffering from renal failure or insufficiency due to interference with other proteins. CALCIUM 8.7(L) 8.9 - 10.3 mg/dL 06/09/2022 3:48 PM [facility] PHOSPHORUS 2.8 2.4 - 4.7 mg/dL 06/09/2022 3:48 PM [facility] IS THE PATIENT REQUIRED TO BE FASTING? No 06/09/2022 3:48 PM [facility] GFR, ESTIMATED 50(L) >=60 06/09/2022 3:48 PM [facility] Comment: Creatinine Clearance is the preferred criteria for selecting drug dose adjustments in renally impaired patients. ??The GFR is provided as additional pertinent clinical information. GFR is reported in mL/min/1.73 sq m. Calculation based on the Chronic Kidney Disease Epidemiology Collaboration (CKD- EPI) equation refit without adjustment for race. GFR, EST. 53(L) >=60 023 3:48 PM GAME PROGRAMMER [facility] GFR, EST. NONAFRICAN 44(L) >=60 06/09/2022 3:48 PM GAME PROGRAMMER [facility] Blood Venipuncture / Unknown 06/09/2022 9:20 AM GAME PROGRAMMER 06/09/2022 9:20 AM GAME PROGRAMMER us Armen Gordon MD CHEMISTRY ORDERABLES Final Result [facility] [address] [place] [address] documented in this encounter Visit Diagnoses Diagnosis Abnormal blood chemistry test- Primary Other abnormal blood chemistry documented in this encounter Additional Health Concerns Assessment Noted Time PHQ-9 Depression Total Score: 0 09/28/19 21 10:00 AM CDT documented as of this encounter Care Teams Electrical Manufacturing Technician Relationship Specialty Start Date End Date Armen Gordon MD [address] [place] [address] PCP - General Internal Medicine 06/12/19 documented as of this encounter
--- OUTSIDE RECORDS SUMMARY | 2024-04-20 03:36 | XMS_ITS | Encounter Summary ---
Author Organization [facility] Address [address] [place] [place] [address] Phone Care Team Providers Care Order Entry Clerk Name Role Phone Armen Gordon MD Primary Care Provider [phone] Encounter Details Date Type Department Care Team (Late st Contact Info) Description 01/19/2024 Telephone [facility] - Internal Medicine - [place] [address] [place] [address] Armen Gordon MD [address] [place] [address] Social History Tobacco Use Types Packs/Day Years Used Date Smoking Tobacco: Never Passive Smoke Exposure: Never Smokeless Tobacco: Never Alcohol Use Standard Drinks/Week Comments Never 0 (1 standard drink = 0.6 oz pur e alcohol) [facility] Utilities Answer Date Recorded In the past 12 months has e [employer], gas, oil, or water [email or web address] threatened to shut off services in your [...] often do you attend chur ch or rastafarian services? Patient unable to answer 07/27/2023 Active [...] Total Score - Questions 1-9 0 11/2023 [facility] - Occupational Stress Questionnaire Answer Date Recorded [...] place to sleep or slept in a [place] facility (including now)? 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 They should contact her neurologist for refill of seizure medication. * Telephone Encounter - Analisa Marroquin RN - 01/19/2024 11:14 AM CDT Facility requesting refill of pt seizure medication but they are unsure of name of medication documented in this encounter Plan of Treatment Not on file documented as of this encounter Visit Diagnoses Not on filedocumented in this encounter Additional Health Concerns Assessment Noted Time PHQ-9 Depression Total Score: 0 07/27/19 24 9:08 AM CDT documented as of this encounter Care Teams Order Entry Clerk Relationship Specialty Start Date End Date [place] [address] [place] [address] PCP - General Internal Medicine 06/12/19 documented as of this encounter
--- OUTSIDE RECORDS SUMMARY | 2024-04-20 03:36 | XMS_ITS | Encounter Summary ---
Author Organization [facility] Address [address] [place] [address] Phone Care Team Providers Care Waxing Machine Operator Helper Name Role Phone Armen Gordon MD Primary Care Provider Reason for Visit * Reason Comments Preventive Care Annual physical Encounter Details Date Type Department Care Team (Late st Contact Info) Description 04/01/2023 9:15 AM ADMISSIONS DEAN Office Visit [facility] - Internal Medicine [place] [address] [place] [address] Armen Gordon MD [address] [place] [address] Essential hypertension, benign (Primary Dx); Other specified hypothyroidism; 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 Patient declined 04/01/2023 Social Connection and Isolation Panel [NHANES] A nswer Date Recorded In a typical week, how many times do you talk on the phone with family, friends, or neighbors? Patient declined 04/01/2023 How often do you get togethe r with friends or relatives? Patient declined 04/01/2023 How often do you attend uatsdin or methodist serv ices? Patient declined 04/01/2023 Do you belong to any clubs o r organizations such as uatsdin groups, unions, fraternal or athletic groups, or school groups? Patient declined 04/01/2023 How often do you attend meet ings of the clubs or organizations you belong to? Patient declined 04/01/2023 Are you , , di vorced, , never , or living with a partner? Patient declined 04/01/2023 AUDIT-C Answer Date Recorded Q1: How often do you have a drink containing alc ohol? Patient declined 04/01/2023 Q2: How many drinks containi ng alcohol do you have on a typical day when you are drinking? Patient declined 04/01/2023 Q3: How often do you have si x or more drinks on one occasion? Patient declined 04/01/2023 Overall Financial Resource Strain (CARDIA) Answe r Date Recorded How hard is it for you to pa y for the very basics like food, housing, medical care, and heating? Patient declined 04/01/2023 PHQ-2 Answer Date Recorded Total Score - Questions 1-9 0 03/20 [facility] - Occupational Stress Questionnaire Answer Date Recorded Do you feel stress - tense, restless, nervous, or anxious, or unable to sleep at night because your mind is troubled all the time - these days? Patient declined 04/01/2023 Exercise Vital Sign Answer Date Recorde d On average, how many days pe r week do you engage in moderate to strenuous exercise (like a brisk walk)? Patient declined On average, how many minutes do you engage in exercise at this level? Patient declined 04/01/2023 Hunger Vital Sign Answer Date Recorded Within the past 12 months, y ou worried that your food would run out before you got the money to buy more. Patient declined Within the past 12 months, t he food you bought just didn't last and you didn't have money to get more. Patient declined PRAPARE - Transportation Answer Date Re corded In the past 12 months, has l ack of transportation kept you from medical appointments or from getting medications? Patient declined 04/01/2023 In the past 12 months, has l ack of transportation kept you from meetings, work, or from getting things needed for daily living? Patient declined 04/01/2023 Housing Stability Vital Sign Answer Vitaliy e Recorded In the last 12 months, was t here a time when you were not able to pay the mortgage or rent on time? Patient declined 04/01/20 23 Number of Places Lived in the Last Year Not on f ile 04/01/2023 In the last 12 months, was t here a time when you did not have a steady place to sleep or slept in a assisted (including now)? Patient declined 04/01/2023 Sexually Active Control Partners Comments Never Comments No Sex and Gender Information Value Date Recorded Sex Assigned at Not on file Legal Sex Female 4:01 PM ADMISSIONS DEAN Gender Identity Not on file Sexual Orientation Not on file documented as of this encounter Last Filed Vital Signs Vital Sign Reading Time Taken Comments Blood Pressure 116/70 04/01/2023 9:00 AM ADMISSIONS DEAN Pulse 78 04/01/2023 9:00 AM ADMISSIONS DEAN Temperature 37.1 ??C (98.7 ??F) 04/01/2023 9:00 AM CS T Respiratory Rate - - Oxygen Saturation 98% 04/01/2023 9:00 AM ADMISSIONS DEAN Inhaled Oxygen Concentration - - Weight 54.9 kg (121 lb) 04/01/2023 9:00 AM ADMISSIONS DEAN Height 149.9 cm (4' 11 ) 04/01/2023 9:00 AM ADMISSIONS DEAN Body Mass Index 24.44 04/01/2023 9:00 AM ADMISSIONS DEAN documented in this encounter Functional Status * Audit-C Score Answer Date of Assessment Author -1 04/01/2023 9:01 AM Migdalia Pyle CMA * Within the last year, have you been humiliated or emotionally abused in other ways by your partner or ex-partner? Answer Date of Assessment Author Patient declined 04/01/2023 9:01 AM Migdalia Pyle CMA * Within the last year, have you been afraid of your partner or ex-partner? Answer Date of Assessment Author Patient declined 04/01/2023 9:01 AM Migdalia Pyle CMA * Within the last year, have you been raped or forced to have any kind of sexual activity by your partner or ex-partner? Answer Date of Assessment Author Patient declined 04/01/2023 9:01 AM Migdalia Pyle CMA * Within the last year, have you been kicked, hit, slapped, or otherwise physically hurt by your partner or ex-partner? Answer Date of Assessment Author Patient declined 04/01/2023 9:01 AM Migdalia Pyle CMA * Question Answer Date of Assessment Author Q1: How often do you have a drink containing alcohol? Patient declined 04/01/2023 9:01 AM Migdalia Pyle CMA Q2: How many drinks containing alcohol do you have on a typical day when you are drinking? Patient declined 04/01/2023 9:01 AM Adamaris Pyle CMA Q3: How often do you have six or more drinks on one occasion? Patient declined 04/01/2023 9:01 AM Migdalia Pyle CMA * Question Answer Date of Assessment Author Little interest or pleasure in doing things Not at all 04/01/2023 9:03 AM Migdalia Pyle CMA Feeling down, depressed, or hopeless Not at all 04/01/2023 9:03 AM Migdalia Pyle CMA * Over the past 2 weeks, how often have you been bothered by any of the following problems? Question Answer Date of Assessment Author Patient Health Questionnaire -2 Score 0 04/01/2023 9:03 AM Migdalia Pyle CMA documented as of this encounter Patient Instructions * Patient Instructions* Armen Gordon MD - 04/01/2023 9:15 AM ADMISSIONS DEAN RECOMMENDED DURING YOUR VISIT TODAY Zoster (Shingles) Vaccine Colonoscopy or Cologuard Mammogram Pap Smear SSIONS DEAN documented in this encounter Progress Notes * Migdalia Dominguez CMA - 04/01/2023 9:15 AM CST Lita screened for Social Determinants of Health and patient declined to answer the questions. Patient lives in a adult facility. Unable to read. SSIONS DEAN * Migdalia Dominguez CMA - 04/01/2023 9:15 AM CST Lita Colbert, 52 y.o., female is here for Preventive Care (Annual physical) Medication Refills: Patient reports/denies need for medication refills. Orders Pended: no Requested Prescriptions No prescriptions requested or ordered in this encounter Home Medications Medication Sig Start Date End Date Taking? Authorizing Provider amLODIPine (NORVASC) 2.5 MG Tablet Take 1 Tab by mouth daily. 03/29/20 Yes Armen Gordon MD Cholecalciferol (VITAMIN D-3 PO) Take by mouth. Yes Preston Ordoñez MD Dasetta 0.5/0.75/1-35 MG-MCG Tablet 03/22/20 Yes Preston Ordoñez MD Fanapt 4 MG Tablet 03/12/20 Yes Preston Ordoñez MD folic acid (FOLVITE) 1 MG Tablet Take 1 mg by mouth daily. Yes Preston Ordoñez MD levothyroxine (SYNTHROID) 25 MCG Tablet 03/20/20 Yes Preston Ordoñez MD loratadine (CLARITIN) 10 MG Tablet Take 1 Tablet by mouth daily. 06/23/22 Yes Armen Gordon MD LORazepam (ATIVAN) 0.5 MG Tablet 1-2 tabs po one hour before doctor's visits 05/19/22 Yes Armen Gordon MD Nit Remover (Nix Ultra Shampoo All-In-One) Kit Use as directed in scalp. Repeat treatment after oneweek Patient not taking: Reported on 04/01/2023 03/19/22 Armen Gordon MD OXcarbazepine (TRILEPTAL) 600 MG Tablet 03/20/20 Yes Preston Ordoñez MD Vimpat 50 MG Tablet 200 mg 2 times daily. 03/12/20 Yes Preston Ordoñez MD There are no discontinued medications. I have reviewed the home medication list with the patient and have reconciled discrepancies. The list is accurate to the best of my knowledge. Smoking Status: Social History Tobacco Use ??? Smoking status: Never Passive exposure: Never ??? Smokeless tobacco: Never Vaping Use ??? Vaping Use: Never used Substance Use Topics ??? Alcohol use: Never ??? Drug use: Never Smoking Cessation Counseling Given: no Health Care Maintenance: Health Maintenance Due Topic Date Due ??? Hepatitis B Immunization (1 of 3 - 3-dose series) Never done ??? Hepatitis C Virus (HCV) Screening Never done ??? DTaP/Tdap/Td Immunization (3 - Td or Tdap) 02/15/2014 ??? Colorectal Cancer Screening Never done ??? Mammogram 2022 ??? Zoster Immunization (1 of 2) Never done ??? Influenza Immunization (1) 12/19/2022 ??? SARS-COV-2 Immunization ( season) 2022 ??? Cervical Cancer Screening (CCS) 01/01/2023 Orders Pended: no The following BPA's have been addressed with the patient today: BMI and Smoking SSIONS DEAN * Armen Gordon MD - 04/01/2023 9:15 AM CST PROGRESS NOTE [facility] [address] [place] [address] PHONE: [phone] FAX: [phone] 04/01/2023 NAME: Lita Colbert, : 1970, Assessment ASSESSMENT & PLAN: Return in about 6 months (around 10/01/2023) for htn. Diagnoses and all orders for this visit: Essential hypertension, benign Comments: Controlled. Continue current medications. Orders: - CMP (COMPREHENSIVE METABOLIC PANEL); Future - LIPID PANEL; Future Other specified hypothyroidism Comments: Continue levothyroxine. 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 Continue current medications. Colorectal cancer screening, well-woman examination recommended. Check CMP, lipid profile, free T4, TSH. Follow-up in 6 months, sooner if needed. Chief Complaint Patient presents with ??? Preventive Care Annual physical HPI Patient is here for follow-up for hypertension and other medical problems. Also needs physical. Lives in a detention. Here with detention staff. Tolerating medications well. ROS Review of systems was negative, except as documented in HPI PHYSICAL EXAM VITALS: Wt Readings from Last 3 Encounters: 04/01/23 121 lb (54.9 kg) 03/11/22 126 lb (57.2 kg) 12/30/21 130 lb (59 kg) Temp Readings from Last 3 Encounters: 04/01/23 98.7 ??F (37.1 ??C) (Temporal) 03/11/22 97.1 ??F (36.2 ??C) (Temporal) 12/30/21 97 ??F (36.1 ??C) (Temporal) BP Readings from Last 3 Encounters: 04/01/23 116/70 03/11/22 100/62 12/30/21 110/64 Pulse Readings from Last 3 Encounters: 04/01/23 78 03/11/22 88 12/30/21 80 Physical Exam Vitals and nursing note reviewed. Constitutional: Appearance: Normal appearance. HENT: Head: Normocephalic. Eyes: Extraocular Movements: Extraocular movements intact. Conjunctiva/sclera: Conjunctivae normal. Pupils: Pupils are equal, round, and reactive to light. Cardiovascular: Rate and Rhythm: Normal rate and regular rhythm. Pulses: Normal pulses. Heart sounds: Normal heart sounds. Pulmonary: Effort: Pulmonary effort is normal. Breath sounds: Normal breath sounds. Abdominal: General: Abdomen is flat. Bowel sounds are normal. Palpations: Abdomen is soft. Musculoskeletal: General: Normal range of motion. Cervical back: Normal range of motion and neck supple. Skin: General: Skin is warm and dry. Neurological: General: No focal deficit present. Mental Status: She is alert and oriented to person, place, and time. Psychiatric: Mood and Affect: Mood normal. Behavior: Behavior normal. Past medical, surgical, social and family history has been reviewed and updated as necessary. Medications and allergies has been reviewed and updated. Allergies Allergen Reactions ??? Rangely Unknown Current Outpatient Medications: ??? amLODIPine (NORVASC) 2.5 MG Tablet ??? Cholecalciferol (VITAMIN D-3 PO) ??? Dasetta 0.5/0.75/1-35 MG-MCG Tablet ??? Fanapt 4 MG Tablet ??? folic acid (FOLVITE) 1 MG Tablet ??? levothyroxine (SYNTHROID) 25 MCG Tablet ??? loratadine (CLARITIN) 10 MG Tablet ??? LORazepam (ATIVAN) 0.5 MG Tablet ??? OXcarbazepine (TRILEPTAL) 600 MG Tablet ??? Vimpat 50 MG Tablet I educated Lita regarding diagnoses and plan of care. She verbalizes understanding and will call theoffice if situation changes. Voice recognition software was utilized in this dictation. Despite proof reading, typographical errors and/or content errors may have occurred. By: Armen Gordon MD 04/01/2023 9:40 AM ADMISSIONS DEAN SSIONS DEAN documented in this encounter Plan of Treatment Scheduled Orders Name Type Priority Associated Diagnoses Orde r Schedule CMP (COMPREHENSIVE METABOLIC PANEL) Lab Routine Essential hypertension, benign Expected: 09/30/2023 (Approximate), Expires: 01/18/2024 LIPID PANEL Lab Routine Essential hypertension, benign Expected: 09/30/2023, Expires: 01/18/2024 THYROXINE (T4) FREE Lab Routine Other specified hypothyroidism Expected: 09/30/2023 (Approximate), Expires: 01/18/2024 THYROID STIMULATING HORMONE (TSH) Lab Routine Other specified hypothyroidism Expected: 09/30/2023 (Approximate), Expires: 01/18/2024 documented as of this encounter Visit Diagnoses Diagnosis Essential hypertension, benign- Primary Other specified hypothyroidism 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
--- OUTSIDE RECORDS SUMMARY | 2024-04-20 03:36 | XMS_ITS | Encounter Summary ---
Author Organization [facility] Care Team Providers Care Neon Glass Blower Name Role Phone Armen Gordon MD Primary Care Provider [phone] Encounter Details Date Type Department Care Team (Latest Contact Info) Description 07/27/2023 Travel Social History Tobacco Use Types Packs/Day Years Used Date Smoking Tobacco: Never Passive Smoke Exposure: Never Smokeless Tobacco: Never Alcohol Use Standard Drinks/Week Comments Never 0 (1 standard drink = 0.6 oz pur e alcohol) [facility] Utilities Answer Date Recorded In the past 12 months has th e electric, gas, oil, or water company threatened to shut off services in your [...] answer 07/27/2023 How often do you attend [facility] ch or islam services? Patient unable to answer 07/27/2023 Active [...] Total Score - Questions 1-9 0 11/2023 [facility] - Occupational Stress [...] to sleep or slept in a senior care (including now)? 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 INTERNIST OFFICE BASED ONLY Gender Identity Not on file Sexual Orientation Not on file documented as of this encounter Functional Status * Audit-C Score [...] Ramon CMA documented as of this encounter Plan of Treatment Not on file documented as of this encounter Visit Diagnoses Not on filedocumented in this encounter Additional Health Concerns Assessment Noted Time PHQ-9 Depression Total Score: 0 07/27/19 24 9:08 AM CDT documented as of this encounter Care Teams Neon Glass Blower Relationship Specialty Start Date End Date Armen Gordon MD [address] [place] [address] PCP - General Internal Medicine 06/12/19 documented as of this encounter
--- OUTSIDE RECORDS SUMMARY | 2024-04-20 03:36 | XMS_ITS | Encounter Summary ---
Author Organization [facility] Address [address] [place] [address] Phone Care Team Providers Care Handyman Name Role Phone Armen Gordon MD Primary Care Provider Encounter Details Date Type Department Care Team (Late st Contact Info) Description 06/09/2022 9:00 AM TECHNICIAN HELPER INSTRUMENT Lab [facility] - Internal Medicine - [place] [address] [place] [phone] [facility] Abnormal blood chemistry test Discharge Disposition: Discharged to home or Selfcare [...] on file Legal Sex Female 4:01 PM TECHNICIAN HELPER INSTRUMENT Gender Identity Not on file Sexual Orientation Not on file COVID-19 Exposure Response Date Recorded In the last 10 days, have yo u been in contact with someone who was confirmed or suspected to have Coronavirus/COVID-19? No / Unsure 06/09/2022 9:03 AM TECHNICIAN HELPER INSTRUMENT documented as of this encounter Progress Notes * Tomeka Dinh RMA - 06/09/2022 9:00 AM CST Lita presents for lab draw per order of Dr. monae dated 06/09/2322. Specimen collected from left antecubital without incident. NICIAN HELPER INSTRUMENT documented in this encounter Plan of Treatment Not on file documented as of this encounter Procedures Procedure Name Priority Date/Time Associated Diagnosis Comments RENAL FUNCTION PANEL (RFP) Routine 06/09/2022 9:20 AM TECHNICIAN HELPER INSTRUMENT Abnormal blood chemistry test documented in this encounter Results * (ABNORMAL) RENAL FUNCTION PANEL (RFP) (06/09/2022 9:20 AM TECHNICIAN HELPER INSTRUMENT) SODIUM 139 136 - 144 mmol/L 06/09/2022 3:48 PM TECHNICIAN HELPER INSTRUMENT [facility] POTASSIUM 3.9 3.5 - 5.1 mmol/L 06/09/2022 3:48 PM TECHNICIAN HELPER INSTRUMENT [facility] CHLORIDE 103 100 - 110 mmol/L 06/09/2022 3:[address] [facility] CO2, VENOUS 26 22 - 32 mmol/L 06/09/2022 3:[address] [facility] ANION GAP 13.9 8.0 - 20.0 mmol/L 06/09/2022 3:48 PM TECHNICIAN HELPER INSTRUMENT [facility] GLUCOSE 71 70 - 99 mg/dL 06/09/2022 3:[address] [facility] BUN 20 6 - 20 mg/dL 06/09/2022 3:[address] [facility] CREATININE, BLOOD 1.30(H) 0.60 - 1.10 mg/dL 06/09/2022 3:[address] [facility] BUN/CREATININE RATIO 15 12 - 20 ratio 06/09/2022 3:[address] [facility] ALBUMIN 3.6 3.5 - 5.2 g/dL 06/09/2022 3:[address] [facility] Comment: The colormetric methods used for the determination of Albumin may lead to falsely elevated test results in patients suffering from renal failure or insufficiency due to interference with other proteins. CALCIUM 8.7(L) 8.9 - 10.3 mg/dL 06/09/2022 3:[address] [facility] PHOSPHORUS 2.8 2.4 - 4.7 mg/dL 06/09/2022 3:[address] [facility] IS THE PATIENT REQUIRED TO BE FASTING? No 06/09/2022 3:48 PM TECHNICIAN HELPER INSTRUMENT [facility] GFR, ESTIMATED 50(L) >=60 06/09/2022 3:48 PM TECHNICIAN HELPER INSTRUMENT [facility] Comment: Creatinine Clearance is the preferred criteria for selecting drug dose adjustments in renally impaired patients. ??The GFR is provided as additional pertinent clinical information. GFR is reported in mL/min/1.73 sq m. Calculation based on the Chronic Kidney Disease Epidemiology Collaboration (CKD- EPI) equation refit without adjustment for race. GFR, EST. 53(L) >=60 023 3:48 PM TECHNICIAN HELPER INSTRUMENT [facility] GFR, EST. NONAFRICAN 44(L) >=60 06/09/2022 3:48 PM TECHNICIAN HELPER INSTRUMENT [facility] Blood Venipuncture / Unknown 06/09/2022 9:20 AM TECHNICIAN HELPER INSTRUMENT 06/09/2022 9:20 AM TECHNICIAN HELPER INSTRUMENT Armen Gordon MD CHEMISTRY ORDERABLES Final Result [facility] [address] [place] [address] documented in this encounter Visit Diagnoses Diagnosis Abnormal blood chemistry test Other abnormal blood chemistry documented in this encounter Additional Health Concerns Assessment Noted Time PHQ-9 Depression Total Score: 0 09/28/19 21 10:00 AM CDT documented as of this encounter Care Teams Handyman Relationship Specialty Start Date End Date Armen Gordon MD [address] [place] [id number] PCP - General Internal Medicine 06/12/19 documented as of this encounter
--- OUTSIDE RECORDS SUMMARY | 2024-04-20 03:36 | XMS_ITS | Continuity of Care Document ---
Author Organization [facility] Address [address] [place] [address] [id number] Encounter [facility] Financial Number [id number] Date(s): 09/23/23 - 09/23/[address] [id number] Discharge Disposition: Home or Self Care Attending Physician: Precious Walsh MD Admitting Physician: Precious Walsh MD Referring Physician: Precious Walsh MD Allergies, Adverse Reactions, Alerts Substance Criticality Severity Reaction Reaction Severity Status lithium Active Assessment and Plan Future Appointments Appointment Date:02/25/2024 01:00:00 PM Scheduled Provider:Sheila Hoff NP Location: Neurology Appointment Type:NN EP Established Patient Medications acetaminophen 325 mg oral tablet 650 mg, 2 tablet(s), Oral, [id number], PRN, 60 tablet(s), Tablet(s), 0, as needed for pain Start Date: 06/15/18 Stop Date: 02/05/19 Status: Ordered amLODIPine 2.5 mg oral tablet 2.5 mg, 1 tablet(s), Oral, daily, 30 tablet(s), Tablet(s), 0 Start Date: 05/22/23 Status: Ordered bacitracin 500 units/g topical ointment 1 Applic, Topical, qid, Ointment, 15 gm Start Date: 06/15/18 Status: Ordered Fanapt 4 mg oral tablet 4 mg, 1 tablet(s), Oral, bid, 60, 0 Start Date: 06/15/18 Stop Date: 02/05/19 Status: Ordered folic acid 1 mg oral tablet 1 mg, 1 tablet(s), Oral, bid, 60 tablet(s), Tablet(s), 0 Start Date: 06/15/18 Stop Date: 02/05/19 Status: Ordered hydrocortisone 0 Start Date: 06/15/18 Status: Ordered levothyroxine 25 mcg (0.025 mg) oral tablet 25 mcg, 1 tablet(s), Oral, daily before breakfast, 30 tablet(s), Tablet(s), 0 Start Date: 06/15/18 Stop Date: 02/05/19 Status: Ordered Maalox Antacid Barrier 500 mg oral tablet, chewable 500 mg, 1 tablet(s), Oral, tid with meals, PRN, 90 tablet(s), Tablet(s), 0, indigestion Start Date: 01/06/19 Stop Date: 02/05/19 Status: Ordered Multivitamin oral tablet 1 tablet(s), Oral, daily, 90 tablet(s), Tablet(s), 0 Start Date: 01/06/19 Stop Date: 04/06/19 Status: Ordered Robafen CF oral liquid 10 mL, Oral, as needed, PRN, 100 mL, 0, cough and congestion Start Date: 06/15/18 Stop Date: 02/05/19 Status: Ordered Trileptal 600 mg oral tablet See Instructions, 90 tablet(s), Tablet(s), 6, 6, 1 tab po qam and 2 qhs, Route to Pharmacy Electronically, [facility], [id number], Instructions Replace Required Details, 152, cm, 08/25/23 10:40:00 CDT, Height, 50, kg, 08/25/23 10:40:00 CDT, Weight Start Date: 08/25/23 Status: Ordered Vimpat 200 mg oral tablet 1 tablet(take along w/ 50mg tablet), Oral, bid, 62 tablet(s), Tablet(s), 2, 2, Route to Pharmacy Electronically, [facility], NCPDP_[id number], 152, cm, 05/22/23 13:21:00 BUILDING INSPECTOR, Height, 53, kg, 05/22/23 13:21:00 BUILDING INSPECTOR, Weight Start Date: 08/08/23 Stop Date: 11/09/23 Status: Ordered Vimpat 50 mg oral tablet 1 tablet(take along w/ 200mg tablet), Oral, bid, 62 tablet(s), Tablet(s), 2, 2, Pt home is on a 31 day cycle;, Route to Pharmacy Electronically[id number], 152, cm, 05/22/2412:21:00 BUILDING INSPECTOR, Height, 53, kg, 05/22/23 13:21:00 BUILDING INSPECTOR, Weight Start Date: 08/08/23 Stop Date: 11/09/23 Status: Ordered Vitamin D3 1000 intl units oral tablet 1,000 unit(s), 1 tablet(s), Oral, daily, 90 tablet(s), Tablet(s), 0 Start Date: 01/06/19 Stop Date: 04/06/19 Status: Ordered Problem List Condition Confirmation Course Effective Dates Status H ealth Status Informant 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 HTN (hypertension) I10 Confirmed Active G93.49 Static encephalopathy Confirmed Active Social History Social History Type Response Alcohol Never alcohol user Substance Abuse Never drug user Smoking Status Never smoker;Never; Tobacco Cessation Counseling Requested N/A entered on: 05/23/22 Sex Patient Care team information Care Team Personnel Name: Precious Walsh MD Position: Physician - Neurology Member Role: Specialist Physician Address: Address: [address] [place] [address] Name: Precious Walsh MD Position: Physician - Neurology Med Service: Senior Telecommunications Specialist [place] A Driver Role: Referring Physician Address: Address: [address] [place] [address] Care Team Related Persons Name: JANETTE SHEPHERD
--- OUTSIDE RECORDS SUMMARY | 2024-04-20 03:36 | XMS_ITS | Continuity of Care Document ---
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(Discharge Diagnosis) - 08/25/23 G93.49 Static encephalopathy(Discharge Diagnosis) - 08/25/23 Discharge Disposition: Home or Self Care Attending Physician: Precious Walsh MD Allergies, Adverse Reactions, Alerts Substance Criticality Severity Reaction Reaction Severity Status lithium Active Assessment and Plan Future Appointments Appointment Date:02/25/2024 01:00:00 PM Scheduled Provider:Sheila Hoff DIETARY WORKER Location: Neurology Appointment Type:NN EP Established Patient Medications acetaminophen 325 mg oral tablet 650 mg, 2 tablet(s), Oral, [id number], PRN, 60 tablet(s), Tablet(s), 0, as needed [...] and 2 qhs, Route to Pharmacy Electronically, [facility], NCPDP_ID-[id number], Instructions Replace Required Details, 152, cm, 08/25/23 10:40:00 CDT, Height, 50, kg, 08/25/23 10:40:00 CDT, Weight Start Date: 08/25/23 Status: Ordered Vimpat 200 mg oral tablet 1 tablet(take along w/ 50mg tablet), Oral, bid, 62 tablet(s), Tablet(s), 2, 2, Route to Pharmacy Electronically, [facility], NCPDP_ID-[id number], 152, cm, 05/22/23 13:21:00 UNDERWRITING SALES REPRESENTATIVE, Height, 53, kg, 05/22/23 13:21:00 UNDERWRITING SALES REPRESENTATIVE, Weight Start Date: 08/08/23 Stop Date: 11/09/23 Status: Ordered Vimpat 50 mg oral tablet 1 tablet(take along w/ 200mg tablet), Oral, bid, 62 tablet(s), Tablet(s), 2, 2, Pt home is on a 31 day cycle;, Route to Pharmacy Electronically, [facility], NCPDP_ID-[id number], 152, cm, 05/22/2412:21:00 UNDERWRITING SALES REPRESENTATIVE, Height, 53, kg, 05/22/23 13:21:00 UNDERWRITING SALES REPRESENTATIVE, Weight Start Date: 08/08/23 Stop Date: 11/09/23 [...] Confirmed Active G93.49 Static encephalopathy Confirmed Active Vital Signs Most recent to oldest [Reference Range]: 1 Peripheral Pulse Rate [60-100 bpm] 73 bp m (08/25/23 10:40 AM) Blood Pressure [89-139/60-90 mm Hg] 104/ 73mm Hg (08/25/23 10:40 AM) Height 152 cm (08/25/23 10:40 AM) Weight 50 kg (08/25/23 10:40 AM) Social History Social History Type Response Alcohol Never alcohol user Substance Abuse Never drug user Smoking Status Never smoker;Never; Tobacco Cessation Counseling Requested N/A entered on: 05/23/22 Sex Note * Cheri Aguila Geospatial Information Technologist: PERFORM Event Display: Patient Documentation AMB Authored Date: Neurology Outpatient Note * Precious Walsh MD: PERFORM Event Display: Neurology Office/Clinic Note Authored Date: Patient Information Name:LITA SHEPHERD Address: [address] [place] [address] [id number] Sex:Female Date of :1970 Location:Neurosurgery and Neurology [facility] Neurology Registration Date and Time:08/25/2023 10:25 CDT Attending Physician: Precious Walsh MD, Chief Complaint SZ follow up History of Present Illness HPI (Per Dr. Hicks, 12/08/2016): Ms. Lita Shepherd was seen in neurologic consultation at the request of Dr. Gustavo Ponce. The patient is a 45-year-old woman with epilepsy and developmental delay. Last seizure was last Spring. Lasted less than 1 minute. Her head drops, she slurs her speech, loses orientation. Takes a minutes after to recover. Frequency 1-2 per year. No grand mal seizures. Vimpat has improved her epilepsy considerably.?? She lives [place] [facility] [place]. Likes to play with a ball and color. She is up at 5 am. [employer]. 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 ?? Visit on 01/06/2019:?? Patient was last seen on May 2018.?? At that time no change??was made to her antiepileptic seizures and she did not have any seizures.?? It was reported that patient had 2 small seizures, first was on November 20 when she fell and had hit shaking??lasting 1 minute??with no incontinence but has she had abrasion of her forehead and left. ??Patient??woke up and came back by herself. ??She had another one in October that was small in the car when she was coming back for a movie.? AEDs: 1. Oxcarbazepine 600 mg bid 2. Vimpat 200 mg q??am, 250 mg qhs. ?? Visit on 02/06/2021:?? -Patient was last seen on December 2018. -Patient??was accompanied [place] caregiver from [place] living at.?? No clear seizure over the past couple of years except that she had a fall??the middle of the night from her bed around 6months ago??but no seizure activity noted. -Current antiepileptics??are oxcarbazepine 600 mg twice daily and lacosamide 250 mg twice daily. -No other neurological issues reported. ?? Visit on 05/23/2022:?? -Patient was accompanied by caregiver as usual. -Per caregiver, patient had a seizure last in February??2021 on the .?? However, description mention the patient was feeling weak and she fell to the floor on her back??and??no shaking,??tongue biting or incontinence. ??Patient was able to walk after around 45 minutes.? -Sodium level was rechecked and was 133 on??03/11/2022. -There was a concern about insurance issues with lacosamide. ??However per caregiver, patient is still getting it from pharmacy with no problem.? -No other neurological symptoms reported. ?? Visit on 09/19/2022:?? -Patient was accompanied by caregiver today. -Per caregiver, patient had an episode on Thursday (09/16/2022)??in the morning when the patient was noted to be crying??and??shaking. ??Patient reported that??she was waiting for breakfast but she could not eat and she slid from the chair to the floor.?? No apparent loss of consciousness and patientwas awake during??this episode. ??[facility]In [facility], patient was recommended to follow-up with neurology for possibleseizure. ?? -The whole incident lasted for couple of hours and the patient was completely awake during that??was no apparent loss of consciousness or unresponsiveness. ??There was no tonic-clonic shaking reported. ?? -Patient reported that she was crying and was sad and not happy during??that time??but she does notremember other details. -No other neurological symptoms reported. ?? Visit??on??11/27/2022:? - EEG was performed on November 19, 2022 showed interictal epileptiform discharges mild background slowing but no ongoing seizures. -Patient was accompanied by caregiver as usual today. -No further episodes concerning for seizure??since patient was last time in September. -Patient has been neurologically stable and she is taking her seizure medications with no reported side effects. -No other neurological symptoms reported. ?? Visit on??05/22/2023 (DIETARY WORKER/LOUIS): Patient presents today??accompanied by caregiver.?She continues oxcarbazepine 600 mg twice a dayand lacosamide 250 mg??twice a day.?? Caregiver reports that she has not had any seizure activity over the last year. ??Patient is very happy today??because she is having fun . ??She [facility].?? There is not been any falls or traumatic injury. ??She is taking the medication well wit hout any??side effects. ?? INTERVAL HISTORY: -Patient was accompanied by caregiver today. -Apparently, patient had without difficulty seizures over the past couple of months??with the last 1 happened around a month ago.?? At that time, it was my time and the patient was found down hittingher head and she had a lacerated wound on the forehead??that needed??gluing. -Patient has no record of a seizure. -Patient currently has been on lacosamide to 50 mg twice daily and oxcarbazepine??600 mg twice daily. -No other neurological symptoms reported.? Review of Systems No fever, no unintentional weight change, no vision changes, no hearing problem or nose bleed, no chest pain, no shortness of breath or cough, no nausea or vomiting, no diarrhea or constipation, no blood in stool, no burning urination or incontinence, no blood in urine, no joint or muscle pain or cramps, no hair loss or fatigue, no anxiety or depression, no anemia, no easy bruising or bleeding tendency, no skin rash. ? Vitals and Measurements Vital Signs Height: 152 cm Height Inches Conversion: 59.8 Weight: 50 kg Weight in Pounds (kg conversion): 110 Body Surface Area: 1.453 m2 Body Mass Index: 21.64 kg/m2 Systolic Blood Pressure: 104 mm Hg Diastolic Blood Pressure: 73 mm Hg Peripheral Pulse Rate: 73 bpm Physical Exam GENERAL EXAMINATION: General:??Comfortable-appearing, cooperative, in no apparent distress. HEENT:??Head normocephalic and atraumatic, sclerae anicteric. Neck:??Normal appearance, supple without any signs of rigidity. Extremities:??No cyanosis, clubbing or edema noted. ?? NEUROLOGICAL EXAMINATION: MENTAL STATUS:??Awake, Alert, Follows Commands.?? LANGUAGE:??Dysarthria. CRANIAL NERVES: Pupils equal and reactive, no RAPD,??divergent squint noted,??no gaze preference or deviation, no ptosis or nystagmus,??normal facial sensation??bilaterally,??no facial asymmetry, no nasolabial fold flattening,??normal hearing to speech bilaterally,??normal shoulder shrug bilaterally,??midline tongue protrusion, no wasting or fasciculations.?? MOTOR: Abnormal Movements: None. Bulk: Normal. Tone: Normal. Strength:??normal in all 4 extremities 5/5. DTR: normal (/) in BUE/knees.?? SENSORY:?? Intact superficial sensation. Romberg absent. CEREBELLAR/COORDINATION: Normal finger to nose, no tremor, dysmetria or truncal ataxia. GAIT:??Slightly unsteady gait but normal stride length and normal stance.? 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 -Continue lacosamide at current? dose of 250 mg twice daily. -EEG was performed on November 19, 2022 showed interictal epileptiform discharges mild background slowing but no ongoing seizures. -Check BMP to monitor for sodium level as??oxcarbazepine can cause hyponatremia. ?? 2.??G93.49 Static encephalopathy -??Plan outlined above. 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 G93.49 Static encephalopathy HTN (hypertension) I10 Historical No qualifying data Medications acetaminophen 325 mg oral tablet, 650 mg= 2 tablet(s), Oral, [id number], PRN amLODIPine 2.5 mg oral tablet, 2.5 mg= 1 tablet(s), Oral, daily bacitracin 500 units/g topical ointment, 1 Applic, Topical, qid Fanapt 4 mg oral tablet, 4 mg= 1 tablet(s), Oral, bid folic acid 1 mg oral tablet, 1 mg= 1 tablet(s), Oral, bid hydrocortisone levothyroxine 25 mcg (0.025 mg) oral tablet, 25 mcg= 1 tablet(s), Oral, daily before breakfast Maalox Antacid Barrier 500 mg oral tablet, chewable, 500 mg= 1 tablet(s), Oral, tid with meals, PRN Multivitamin oral tablet, 1 tablet(s), Oral, daily OXcarbazepine 600 mg oral tablet, 600 mg= 1 tablet(s), Oral, bid, 1 refills Robafen CF oral liquid, 10 mL, Oral, as needed, PRN Vimpat 200 mg oral tablet, 1 tablet(take along w/ 50mg tablet), Oral, bid, 2 refills Vimpat 50 mg oral tablet, 1 tablet(take along w/ 200mg tablet), Oral, bid, 2 refills Vitamin D3 1000 intl units oral tablet, 1000 unit(s)= 1 tablet(s), Oral, daily Allergies lithium Social History Alcohol Never alcohol user, 05/23/2022 Never alcohol user, 02/06/2021 Substance Abuse Never drug user, 05/23/2022 Never drug user, 02/06/2021 Tobacco Never smoker, Smokeless Tobacco use: Never. N/A Cessation Counseling., 05/23/2022 Never smoker, Smokeless Tobacco use: Never. N/A Cessation Counseling., 02/06/2021 Family History ?Unable to Obtain ? Voice to Text Technology Disclaimer This note may contain text inserted via Dragon or other voice to text assistive technology and retail department supervisor, variances may occur. Patient Care team information Care Team Personnel Name: Precious Walsh MD Position: Physician - Neurology Member Role: Specialist Physician Address: Address: [address] [place] [address] Name: Precious Walsh MD Position: Physician - Neurology Med Service: Senior Geologist Glass Washer And Carrier Role: Attending Physician Address: Address: [address] [address] Care Team Related Persons Name: JANETTE SHEPHERD
--- OUTSIDE RECORDS SUMMARY | 2024-04-20 03:36 | XMS_ITS | Encounter Summary ---
Author Organization [facility] Address [address] [place] [address] Phone Care Team Providers Care Director Supplier Quality Name Role Phone Armen Gordon MD Primary Care Provider Reason for Visit * Reason Onset Date Comments Medication Management 05/19/2022 Encounter Details Date Type Department Care Team (Late st Contact Info) Description 05/19/2022 Telephone [facility] - Internal Medicine [place] [address] [place] [address] Armen Gordon MD [address] [address] Medication Management Social History Tobacco [...] on file Legal Sex Female 4:01 PM NEWS LIBRARY DIRECTOR Gender Identity Not on file Sexual Orientation Not on file COVID-19 Exposure Response Date Recorded In the last 10 days, have yo u been in contact with someone who was confirmed or suspected to have Coronavirus/COVID-19? No / Unsure 06/09/2022 9:03 AM NEWS LIBRARY DIRECTOR documented as of this encounter Miscellaneous Notes * Telephone Encounter - Armen Gordon MD - 05/19/2022 1:13 PM NEWS LIBRARY DIRECTOR Lorazepam rx sent LIBRARY DIRECTOR * Telephone Encounter - July - 05/19/2022 1:02 PM CST Patient has an OB appointment and needs pre medicated for the appointment she has not beenin 5 years and they are not sure what she was given last time. So please prescribe what ever you recommend. Pharmacy: [facility] LIBRARY DIRECTOR documented in this encounter Plan of Treatment Not on file documented as of this encounter Visit Diagnoses Diagnosis Generalized anxiety disorder- Primary documented in this encounter Additional Health Concerns Assessment Noted Time PHQ-9 Depression Total Score: 0 09/28/19 21 10:00 AM CDT documented as of this encounter Care Teams Director Supplier Quality Relationship Specialty Start Date End Date Armen Gordon MD [address] [place] [address] PCP - General Internal Medicine 06/12/19 documented as of this encounter
--- OUTSIDE RECORDS SUMMARY | 2024-04-20 03:36 | XMS_ITS | Encounter Summary ---
Author Organization [facility] Address [address] [place] [address] Phone Care Team Providers Care Anthropologist Name Role Phone Armen Gordon MD Primary Care Provider [phone] Encounter Details Date Type Department Care Team (Late st Contact Info) Description 03/23/2024 Documentation Only [facility] - Internal Medicine - [place] [address] [place] [address] Armen Gordon MD [address] [place] [address] Social History Tobacco Use Types Packs/Day Years Used Date Smoking Tobacco: Never Passive Smoke Exposure: Never Smokeless Tobacco: Never Alcohol Use Standard Drinks/Week Comments Never 0 (1 standard drink = 0.6 oz pur e alcohol) [facility] Utilities Answer Date Recorded In the past 12 months has e electric, gas, oil, or water [employer] threatened to shut off services in your [...] often do you attend chur ch or christian services? Patient unable to answer 07/27/2023 Active [...] Total Score - Questions 1-9 0 11/2023 [facility] Occupat ional [facility] - Occupational Stress [...] place to sleep or slept in a halfway (including now)? 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 EMBOSSING TOOLSETTER Gender Identity Not on file Sexual Orientation Not on file documented as of this encounter Progress Notes * MookJuly - 03/23/2024 7:27 AM CST Received a fax from Eduarda Smith regarding patient's abnormal weight loss, gave to providerfor review and recommendations. Waiting for return SSING TOOLSETTER * Jen Delacruz - 03/23/2024 7:27 AM CST Received fax back from provider, he addressed the weight loss. Recommendations faxed back to Eduarda Smith at 3:59:56 with a successful confirmation. SSING TOOLSETTER documented in this encounter Plan of Treatment Not on file documented as of this encounter Visit Diagnoses Not on filedocumented in this encounter Additional Health Concerns Assessment Noted Time PHQ-9 Depression Total Score: 0 07/27/19 24 9:08 AM CDT documented as of this encounter Care Teams Anthropologist Relationship Specialty Start Date End Date Armen Gordon MD [address] [place] [address] PCP - General Internal Medicine 06/12/19 documented as of this encounter
--- OUTSIDE RECORDS SUMMARY | 2024-04-20 03:36 | XMS_ITS | Encounter Summary ---
Author Organization [facility] Address [address] [place] [address] Phone Care Team Providers Care Fermentation Operator Name Role Phone Armen Gordon MD Primary Care Provider [phone] Reason for Visit * Reason Onset Date Comments Results 06/13/2022 Encounter Details Date Type Department Care Team (Late st Contact Info) Description 06/13/2022 Telephone [facility] - Internal Medicine - [place] [address] [place] [address] Armen Gordon MD [address] [place] [address] Results Social History Tobacco Use Types Packs/Day Years [...] on file Legal Sex Female 4:01 PM DETAILER PHARMACEUTICALS Gender Identity Not on file Sexual Orientation Not on file COVID-19 Exposure Response Date Recorded In the last 10 days, have yo u been in contact with someone who was confirmed or suspected to have Coronavirus/COVID-19? No / Unsure 06/09/2022 9:03 AM DETAILER PHARMACEUTICALS documented as of this encounter Miscellaneous Notes * Telephone Encounter - Ree Stinson RN - 06/13/2022 1:27 PM DETAILER PHARMACEUTICALS Called Eduarda Smith and made them aware of doctor's result note and recommendation. They voiced understanding. [employer] * Telephone Encounter - Ree Stinson RN - 06/13/2022 1:23 PM DETAILER PHARMACEUTICALS ----- Message from Armen Gordon MD sent at 06/10/2022 1:07 PM DETAILER PHARMACE[employer]ICALS ----- CMP-creatinine 1.30. Stable. No change in medications. [employer] documented in this encounter Plan of Treatment Not on file documented as of this encounter Visit Diagnoses Not on filedocumented in this encounter Additional Health Concerns Assessment Noted Time PHQ-9 Depression Total Score: 0 09/28/19 21 10:00 AM CDT documented as of this encounter Care Teams Fermentation Operator Relationship Specialty Start Date End Date Armen Gordon MD [address] [place] [address] PCP - General Internal Medicine 06/12/19 documented as of this encounter
--- OUTSIDE RECORDS SUMMARY | 2024-04-20 03:36 | XMS_ITS | Encounter Summary ---
Author Organization [facility] Care Team Providers Care Manager Investment Banking Name Role Phone Armen Gordon MD Primary Care Provider [phone] Encounter Details Date Type Department Care Team (Latest Contact Info) Description 06/09/2022 Travel Social History Tobacco Use Types Packs/Day [...] on file Legal Sex Female 4:01 PM DIRECTOR OF STUDENT LIFE Gender Identity Not on file Sexual Orientation Not on file COVID-19 Exposure Response Date Recorded In the last 10 days, have yo u been in contact with someone who was confirmed or suspected to have Coronavirus/COVID-19? No / Unsure 06/09/2022 9:03 AM DIRECTOR OF STUDENT LIFE documented as of this encounter Plan of Treatment Not on file documented as of this encounter Visit Diagnoses Not on filedocumented in this encounter Additional Health Concerns Assessment Noted Time PHQ-9 Depression Total Score: 0 09/28/19 21 10:00 AM CDT documented as of this encounter Care Teams Manager Investment Banking Relationship Specialty Start Date End Date Armen Gordon MD [address] [place] [address] PCP - General Internal Medicine 06/12/19 documented as of this encounter
--- OUTSIDE RECORDS SUMMARY | 2024-04-20 03:36 | XMS_ITS | Encounter Summary ---
Author Organization [facility] Address [address] [place] [address] Phone Care Team Providers Care Detailer School Photographs Name Role Phone Armen Gordon MD Primary Care Provider [phone] Encounter Details Date Type Department Care Team (Late st Contact Info) Description 12/16/2023 Telephone [facility] - Internal Medicine - [facility] [address] [place] [address] Armen Gordon MD [address] [place] [address] Social History Tobacco Use Types Packs/Day Years Used Date Smoking Tobacco: Never Passive Smoke Exposure: Never Smokeless Tobacco: Never Alcohol Use Standard Drinks/Week Comments Never 0 (1 standard drink = 0.6 oz pur e alcohol) [facility] Utilities Answer Date Recorded In the past 12 months has e electric, gas, oil, or water company [...] often do you attend chur ch or rastafari services? Patient unable to answer 07/27/2023 Active [...] Total Score - Questions 1-9 0 11/2023 [facility] [place] [facility] Occupat ional Health - Occupational Stress [...] place to sleep or slept in a usp (including now)? 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 DOCUMENTATION SPEC Gender Identity Not on file Sexual Orientation Not on file documented as of this encounter Miscellaneous Notes * Telephone Encounter - Armen Gordon MD - 12/16/2023 10:46 AM CDT Okay to order cologuard. * Telephone Encounter - Pat Padron - 12/16/2023 10:22 AM CDT Elizabeth with [facility] calling stating at last ov it was recommended patient have a colon screening. Wanting to know if they can get the cologuard mailed to them or the order? Call back # [phone]. documented in this encounter Plan of Treatment Scheduled Orders Name Type Priority Associated Diagnoses Orde r Schedule COLOGUARD Lab Routine Screening for colon cancer Expected: 12/16/2023, Expires: 12/15/2024 documented as of this encounter Visit Diagnoses Diagnosis Screening for colon cancer- Primary Special screening for malignant neoplasms, colon documented in this encounter Additional Health Concerns Assessment Noted Time PHQ-9 Depression Total Score: 0 07/27/19 24 9:08 AM CDT documented as of this encounter Care Teams Detailer School Photographs Relationship Specialty Start Date End Date Armen [place] [address] PCP - General Internal Medicine 06/12/19 documented as of this encounter
--- OUTSIDE RECORDS SUMMARY | 2024-04-20 03:36 | XMS_ITS | Encounter Summary ---
Author Organization [facility] Address [address] [place] [address] Phone Care Team Providers Care Dining Service Inspector Name Role Phone Armen Gordon MD Primary Care Provider Reason for Visit * Reason Onset Date Comments Results 03/12/2022 Encounter Details Date Type Department Care Team (Late st Contact Info) Description 03/12/2022 Telephone [facility] - Internal Medicine [facility] [address] [place] [address] Armen Gordon MD [address] [place] [address] Results Social History Tobacco Use [...] on file Legal Sex Female 4:01 PM JAVASCRIPT PROGRAMMER Gender Identity Not on file Sexual Orientation Not on file COVID-19 Exposure Response Date Recorded In the last 10 days, have yo u been in contact with someone who was confirmed or suspected to have Coronavirus/COVID-19? No / Unsure 03/11/2022 10:17 AM JAVASCRIPT PROGRAMMER documented as of this encounter Miscellaneous Notes * Telephone Encounter - Analisa Marroquin RN - 03/12/2022 11:08 AM CST Aware of results and verbalizes understanding. SCRIPT PROGRAMMER * Telephone Encounter - Analisa Marroquin RN - 03/12/2022 11:07 AM CST ----- Message from Armen Gordon MD sent at 03/12/2022 7:57 AM JAVASCRIPT PROGRAMMER ----- Cbc, lipids- okay Cmp- foley artist. Mildly elevated. Rpt renal function panel in 3 months SCRIPT PROGRAMMER documented in this encounter Plan of Treatment Not on file documented as of this encounter Visit Diagnoses Not on filedocumented in this encounter Additional Health Concerns Assessment Noted Time PHQ-9 Depression Total Score: 0 09/28/19 21 10:00 AM CDT documented as of this encounter Care Teams Dining Service Inspector Relationship Specialty Start Date End Date Armen Gordon MD [address] [place] [address] PCP - General Internal Medicine 06/12/19 documented as of this encounter
--- OUTSIDE RECORDS SUMMARY | 2024-04-20 03:36 | XMS_ITS | Continuity of Care Document ---
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(Discharge Diagnosis) - 11/27/22 G93.49 Static encephalopathy(Discharge Diagnosis) - 11/27/22 Discharge Disposition: Home or Self Care Attending Physician: Precious Walsh MD Allergies, Adverse Reactions, Alerts Substance Reaction Severity Status lithium Active Assessment and Plan Future Appointments Appointment Date:05/22/2023 01:00:00 PM Scheduled Provider:Sheila Hoff NP Location: Neurology Appointment Type: EP Established Patient Appointment Date:11/26/2023 11:00:00 AM Scheduled Provider:Precious Walsh MD Location: Neurology Appointment Type: EP Established Patient Medications acetaminophen 325 mg oral tablet 650 mg, 2 tablet(s), Oral, [id number], PRN, 60 tablet(s), Tablet(s), 0, as needed for pain Start Date: 06/15/18 Stop Date: 02/05/19 Status: Ordered Alyacen oral tablet 1 tablet(s), Oral, daily, 28 tablet(s), 0 Start Date: 01/06/19 Stop Date: 02/03/19 Status: Ordered amLODIPine 5 mg oral tablet 5 mg, 1 tablet(s), Oral, daily, 30 tablet(s), Tablet(s), 0 Start Date: 06/15/18 Stop Date: 02/05/19 Status: Ordered bacitracin 500 units/g topical ointment [...] Date: 01/06/19 Stop Date: 04/06/19 Status: Ordered OXcarbazepine 600 mg oral tablet 600 mg, 1 tablet(s), Oral, bid, 120 tablet(s), Tablet(s), 1, 1, Route to Pharmacy Electronically, [facility], RIPDP_[id number], 152, cm, 02/06/2021 1217, Height, 56.9, kg, 02/06/2021 1217, Weight Start Date: 06/20/21 Stop Date: 10/18/21 Status: Ordered Robafen CF oral liquid 10 mL, Oral, as needed, PRN, 100 mL, 0, cough and congestion Start Date: 06/15/18 Stop Date: 02/05/19 Status: Ordered Vimpat 200 mg oral tablet 1 tablet(take along w/ 50mg tablet), Oral, bid, 62 tablet(s), Tablet(s), 2, 2, Route to Pharmacy Electronically, [facility], NCPDP_[id number], 152, cm, 09/19/2022 1149, Height, 53, kg, 09/19/2022 1149, Weight Start Date: 11/04/22 Stop Date: 02/05/23 Status: Ordered Vimpat 50 mg oral tablet 1 tablet(take along w/ 200mg tablet), Oral, bid, 62 tablet(s), Tablet(s), 3, 3, Pt home is on a 31 day cycle;, Route to Pharmacy Electronically, [facility], NCPDP_[id number], 152, cm, 205, Height, 52.72, kg, 05/23/2022 1226, Weight Start Date: 08/14/22 Stop Date: 12/16/22 Status: Ordered Vitamin D3 1000 intl units [...] Range]: 1 Peripheral Pulse Rate [60-100 bpm] 83 bp m (11/27/22 11:22 AM) Blood Pressure [89-139/60-90 mm Hg] 122/ 76mm Hg (11/27/22 11:22 AM) Height 152 cm (11/27/22 11:22 AM) Social History Social History Type Response Alcohol Never alcohol user Substance Abuse Never drug user Smoking Status Never smoker;Never; Tobacco Cessation Counseling Requested N/A entered on: 05/23/22 Sex Neurology Outpatient Note * Precious Walsh MD: PERFORM Event Display: Neurology Office/Clinic Note Authored Date: Patient Information Name:LITA COLBERT Address: [address] [place] [id number] Sex:Female Date of :1970 Location:[facility]surgery and [facility]rology [facility] Neurology Registration Date and Time:11/27/2022 11:00 CDT Attending Physician: Precious Walsh MD, Chief Complaint SZ follow up History of Present Illness HPI (Per Dr. Hicks, 12/08/2016): Ms. Lita Colbert was seen in neurologic consultation at the [...] her epilepsy considerably.?? She lives in a retirement. Likes to play with a ball and color. She is up at 5 am. Love Lorena Gaxiola. 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 She [...] 2018. -Patient??was accompanied by caregiver from the retirement she is living at.?? No clear seizure [...] [facility] ??In the ER, patient was recommended [...] details. -No other neurological symptoms reported. ?? INTERVAL HISTORY: - EEG was performed on November 19, 2022 showed interictal epileptiform discharges mild background slowing but no ongoing seizures. -Patient was accompanied by caregiver as usual today. -No further episodes concerning for seizure??since patient was last time in September. -Patient has been neurologically stable and she is taking her seizure medications with no reported side effects. -No other neurological symptoms reported. Review of Systems No fever, no unintentional [...] bruising or bleeding tendency, no skin rash. Vitals and Measurements Vital Signs Height: 152 cm Height Inches Conversion: 59.8 Systolic Blood Pressure: 122 mm Hg Diastolic Blood Pressure: 76 mm Hg Peripheral Pulse Rate: 83 bpm Physical Exam GENERAL EXAMINATION: General: Comfortable-appearing, cooperative, in no apparent distress. HEENT: Head normocephalic and atraumatic, sclerae anicteric. Neck: Normal appearance, supple without any signs of rigidity. Extremities: No cyanosis, clubbing or edema noted. ?? NEUROLOGICAL EXAMINATION: MENTAL STATUS: Awake, Alert, Follows Commands.?? LANGUAGE: Dysarthria. CRANIAL NERVES: Pupils equal and reactive, no RAPD,??divergent squint noted,??no gaze preference or deviation, no ptosis or nystagmus,??normal facial sensation??bilaterally,??no facial asymmetry, no nasolabial fold flattening,??normal hearing to speech bilaterally,??normal shoulder shrug bilaterally,??midline tongue protrusion, no wasting or fasciculations.?? MOTOR: Abnormal Movements: None. Bulk: Normal. Tone: Normal. Strength:??normal in all 4 extremities 5/5. DTR: normal (2/4) in BUE/knees.?? SENSORY:?? Intact superficial sensation. Romberg absent. CEREBELLAR/COORDINATION: Normal finger to nose, no tremor, dysmetria or truncal ataxia. GAIT: Slightly unsteady gait but normal stride length and normal stance.? 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 -Given the low suspicion for seizure regarding that incident that happened back in August and??lack ofongoing seizure activity sleep deprived EEG done on November 19, no need to change??the dosage regimenfor the seizure medications.?? Patient and caregiver were counseled about that. -So far, no clear seizures over the past 3 years. -Continue current antiepileptic regimen includin. ??Oxcarbazepine 600 mg twice daily. 2. ??Lacosamide 250 mg twice daily.?? 2.??G93.49 Static encephalopathy -Plan outlined above. -RTC??in 1 year or sooner as needed. 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 G93.49 Static encephalopathy HTN (hypertension) I10 Historical No qualifying data Medications acetaminophen 325 mg oral tablet, 650 mg= 2 tablet(s), Oral, [id number], PRN Alyacen oral tablet, 1 tablet(s), Oral, daily amLODIPine 5 mg oral tablet, 5 mg= 1 tablet(s), Oral, daily bacitracin 500 units/g topical ointment, 1 Applic, Topical, qid,?Not taking Fanapt 4 mg oral tablet, 4 mg= 1 tablet(s), Oral, bid folic acid 1 mg oral tablet, 1 mg= 1 tablet(s), Oral, bid hydrocortisone,?Not taking levothyroxine 25 mcg (0.025 mg) oral tablet, [...] tablet(take along w/ 200mg tablet), Oral, bid, 3 refills Vitamin D3 1000 intl units oral [...] other voice to text assistive technology and service transformer repair supervisor, variances may occur. Patient Care team information Care Team Personnel Name: Precious Walsh MD Position: Physician - Neurology Member Role: Specialist Physician Address: Address: [address] [place] [address] Name: Precious Walsh MD Position: Physician - Neurology Med Service: Sas Programmer Analyst Military Police Officer Role: Attending Physician Address: Address: [address] [place] [address] Care Team Related Persons Name: JANETTE COLBERT
--- OUTSIDE RECORDS SUMMARY | 2024-04-20 03:36 | XMS_ITS | Continuity of Care Document ---
Author Organization [facility] Address [address] [place] [address] [phone] Support Name Relationship Address Phone JANETTE COLBERT Personal Relationship Unknown Unav ailable Encounter [facility] Financial Number [id number] Date(s): 02/25/24 - 02/25/24 [facility] Neurology [address] [place] [address] [id number] Encounter Diagnosis G93.49 Static encephalopathy(Discharge Diagnosis) - 02/25/24 Epilepsy(Discharge Diagnosis) - 02/25/24 Discharge Disposition: Home or Self Care Attending Physician: Sheila Hoff MEDICAL TECHNICIAN ASSISTANT Allergies, Adverse Reactions, Alerts Substance Criticality Severity Reaction Reaction Severity Status lithium Active Assessment and Plan Future Appointments Appointment Date:06/21/2024 11:00:00 AM Scheduled Provider:Precious Walsh MD Location: Neurology Appointment Type: EP Established Patient Medications acetaminophen 325 mg oral tablet 650 mg, 2 tablet(s), Oral, [id number], PRN, 60 tablet(s), Tablet(s), 0, as needed [...] and 2 qhs, Route to Pharmacy Electronically, [facility], NVPDP_[id number], Instructions Replace Required Details, 152, cm, 08/25/23 10:40:00 CDT, Height, 50, kg, 08/25/23 10:40:00 CDT, Weight Start Date: 08/25/23 Status: Ordered Vimpat 200 mg oral tablet 200 mg, 1 tablet(s), Oral, bid, 62 tablet(s), Tablet(s), 2, 2, Route [facility] Pharmacy Electronically[facility], NVPDP_ID-[id number], 152, cm, 08/25/23 10:40:00 CDT, Height, 50, kg, 08/25/23 10:40:00 CDT, Weight Start Date: 01/19/24 Stop Date: 04/21/24 Status: Ordered Vimpat 50 mg oral tablet 50 mg, 1 tablet(s), Oral, bid, 62 tablet(s), Tablet(s), 2, 2, Pt home is on a 31 day cycle;, Route to Pharmacy Electronically, [facility], NVPDP_ID- [id number], 152, cm, 08/25/23 10:40:00 CDT, Height, 50, kg, 08/25/23 10:40:00 CDT, Weight Start Date: 01/19/24 Stop Date: 04/21/24 Status: Ordered Vitamin D3 1000 intl units [...] Range]: 1 Peripheral Pulse Rate [60-100 bpm] 82 bp m (02/25/24 8:09 AM) Blood Pressure [89-139/60-90 mm Hg] 87/5 8mm Hg *L* (02/25/24 8:09 AM) Height 152 cm (02/25/24 8:09 AM) Weight 50 kg (02/25/24 8:09 AM) Social History Social History Type Response Alcohol Never alcohol user Substance Abuse Never drug user Smoking Status Never smoker;Never; Tobacco Cessation Counseling Requested N/A entered on: 05/23/22 Sex Sex Representation Female (finding) Neurology Outpatient Note * Sheila Hoff MEDICAL TECHNICIAN ASSISTANT: PERFORM Event Display: Neurology Office/Clinic Note Authored Date: [id number] Patient Information Name:LITA COLBERT Address: [address] [place] [id number] Sex:Female Date of :1970 Location:Neurosurgery and Neurology [facility] Neurology Registration Date and Time:02/25/2024 12:54 COLLATERAL SPECIALIST Attending Physician: Sheila Hoff MEDICAL TECHNICIAN ASSISTANT, Chief Complaint Seizure follow up History of Present Illness Patient presents today??accompanied by caregiver.?? At the last visit in August, patient??had a coupleof seizures. ??She was increased on her oxcarbazepine. ??She continues oxcarbazepine 600 mg in the morning and 1200 mg at night and lacosamide 250 mg??twice a day.?? Caregiver reports that she has not had any seizure activity over the last 6 months?.?? She is having new episodesof drop attacks.?? She will be walking along and sometimes just fall. ??There is no??prelude of abnormal behavior. ??There is no involuntary movements, oral trauma or bowel or bladder incontinence.??She will immediately get back up and say that she is okay. ??Sometimes she will be unsteady for a few hours but never fall.?? She also had where she will stumble and then sit down??immediately.?? Shewill be less reactive. ??She is usually very talkative??and happy??with rocking and she will have slow??response. ??But after about a minute she says??she is okay and she gets up and moves on.?? She is also having periodic outbursts of crying. ??There will filar in her room crying and this is very abnormal for her. ?? HPI 12/08/2016??and updated??as needed:??Ms. Lita Colbert was seen in neurologic consultation [...] her epilepsy considerably.?? She lives in a long-term. Likes to play with a ball and color. She is up at 5 am. Love [employer]. 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 As of 2019, patient was??placed on a second agent due to multiple??seizures.?? She was??started on Vimpat 250 mg twice a day??and oxcarbazepine 600 mg twice daily. EEG 11/19/2022??showed interictal epileptiform discharges with mild background slowing but no ongoingseizures. Review of Systems No fever, chills, anorexia, malaise, stiff neck, sore throat, cough, chest pain, shortness of breath, dyspnea on exertion, abdominal pain, nausea, vomiting, diarrhea, constipation, blood in the stoolor urine, skin rash, depression or anxiety. Vitals and Measurements Vital Signs Height: 152 cm Height Inches Conversion: 59.8 Weight: 50 kg Weight in Pounds (kg conversion): 110 Body Surface Area: 1.453 m2 Body Mass Index: 21.64 kg/m2 Systolic Blood Pressure:??87 mm Hg??Low Diastolic Blood Pressure:??58 mm Hg??Low Peripheral Pulse Rate: 82 bpm Physical Exam Mental status: Fully awake and alert. Oriented to person??and doctors office. Speech is fluent withnormal naming, repetition, and comprehension. Follows all??simple commands readily.?? Cranial nerves: Extraocular movements full. Pupils equal, round and reactive to light. Visual rico full to confrontation. Normal facial sensation. No facial asymmetry. No nystagmus. Palate elevatessymmetrically. Tongue normal bulk and strength. Motor: Strength is 5/5 throughout the upper and lower extremities. No pronator drift. Muscle tone is normal. No atrophy or fasciculations. No involuntary movement seen. Sensation: Intact to light touch. Coordination: Finger tapping is quick and accurate bilaterally. Deep tendon reflexes: Symmetric.?? Gait: Steady, with normal base, stride, and arm swing. Assessment/Plan 1.??G93.49 Static encephalopathy 2.??Epilepsy Orders: CBC with Differential, 02/25/24, Blood, ROUTINE, Routine, Order for Future Visit, Nurse Collect, Print Label, High risk medication use Seizure Medication management, Not Required, Hold Until Collected Comprehensive Metabolic Profile(CMP), 02/25/24, Blood, ROUTINE, Routine, Order for Future Visit, Nurse Collect, Print Label, High risk medication use Seizure Medication management, Not Required, Hold Until Collected Lacosamide Level, 02/25/24, Blood, ROUTINE, Routine, Order for Future Visit, Nurse Collect, Print Label, High risk medication use Seizure Medication management, Not Required, Hold Until Collected Trileptal Level (Oxcarbazepine), 02/25/24, Blood, ROUTINE, Routine, Order for Future Visit, Nurse Collect, Print Label, High risk medication use Seizure Medication management, Not Required, Hold Until Collected Patient??without any seizure activity??that is tonic-clonic??since August??but she is having new episodes of drop attacks,??spontaneous crying, unsteadiness with altered??consciousness and behavior. ??She continues to tolerate the Vimpat and oxcarbazepine without any difficulty. ??We will continue oxcarbazepine 600 mg in the morning and 1200 mg at night and lacosamide 250 mg??twice a day?.?We will??obtain a CBC, CMP??and medication levels.?This could be??more of an absence seizure??although not her typical??versus??metabolic issues.?? If labs are normal, we will proceedwith an ambulatory EEG for 3 days??if possible.?? With abnormal labs, we will defer to her primary care. ?? 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 G93.49 Static encephalopathy HTN (hypertension) I10 Historical No qualifying data Medications acetaminophen 325 mg oral tablet, 650 mg= 2 tablet(s), Oral, [id number], PRN amLODIPine 2.5 mg oral tablet, 2.5 [...] Multivitamin oral tablet, 1 tablet(s), Oral, daily Robafen CF oral liquid, 10 mL, Oral, as needed, PRN Trileptal 600 mg oral tablet, See Instructions, 6 refills Vimpat 200 mg oral tablet, 200 mg= 1 tablet(s), Oral, bid, 2 refills Vimpat 50 mg oral tablet, 50 mg= 1 tablet(s), Oral, bid, 2 refills Vitamin D3 1000 [...] other voice to text assistive technology and research epidemiologist, variances may occur. Patient Care team information Care Team Personnel Name: Precious Walsh MD Position: Physician - Neurology Member Role: Specialist Physician Address: [address] [place] [address] [place] [address] Name: Sheila Hoff MEDICAL TECHNICIAN ASSISTANT Position: DAVID MEDICAL TECHNICIAN ASSISTANT/PA Med Service: Manager Medical Device Canvas Cutter Hand Role: Attending Physician Address: [address] [place] [address] [address] [place] [address] Care Team Related Persons Name: JANETTE COLBERT Insurance Providers Guarantor name: LITA COLBERT EVault Plan Information #: 1 Payer: Medicare Member Number: [id number] Policy Number: NA Health Plan Information #: 2 Payer: Medicare Member Number: [id number] Policy Number: [id number]
--- OUTSIDE RECORDS SUMMARY | 2024-04-20 03:36 | XMS_ITS | Encounter Summary ---
Author Organization [facility] Care Team Providers Care Crop And Soil Technician Name Role Phone Armen Gordon MD Primary Care Provider [phone] Encounter Details Date Type Department Care Team (Latest Contact Info) Description 03/11/2022 Travel Social History Tobacco Use Types Packs/Day [...] on file Legal Sex Female 4:01 PM INDUSTRIAL ENGINEERING DIRECTOR Gender Identity Not on file Sexual Orientation Not on file COVID-19 Exposure Response Date Recorded In the last 10 days, have yo u been in contact with someone who was confirmed or suspected to have Coronavirus/COVID-19? No / Unsure 03/11/2022 10:17 AM INDUSTRIAL ENGINEERING DIRECTOR documented as of this encounter Functional Status * Question Answer Date of Assessment Author Little interest or pleasure in doing things Not at all 03/11/2022 10:00 AM Estefani Pyle CMA Feeling down, depressed, or hopeless Not at all 03/11/2022 10:00 AM Migdalia Pyle CMA * Over the past 2 weeks, how often have you been bothered by any of the following problems? Question Answer Date of Assessment Author Patient Health Questionnaire -2 Score 0 03/11/2022 10:00 AM Migdalia Pyle CMA documented as of this encounter Plan of Treatment Not on file documented as of this encounter Visit Diagnoses Not on filedocumented in this encounter Additional Health Concerns Assessment Noted Time PHQ-9 Depression Total Score: 0 09/28/19 21 10:00 AM CDT documented as of this encounter Care Teams Crop And Soil Technician Relationship Specialty Start Date End Date Armen Gordon MD [address] [place] [address] PCP - General Internal Medicine 06/12/19 documented as of this encounter
--- OUTSIDE RECORDS SUMMARY | 2024-04-20 03:36 | XMS_ITS | Continuity of Care Document ---
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(Discharge Diagnosis) - 05/22/23 Discharge Disposition: Home or Self Care Attending Physician: Sheila Hoff NP Allergies, Adverse Reactions, Alerts Substance Reaction Severity Status lithium Active Assessment and Plan Future Appointments Appointment Date:05/19/2024 01:00:00 PM Scheduled Provider:Sheila Hoff NP Location: Neurology Appointment Type:NN EP Established Patient Medications acetaminophen 325 mg oral tablet 650 mg, 2 tablet(s), Oral, [id number], PRN, 60 tablet(s), Tablet(s), 0, as needed for pain Start Date: 06/15/18 Stop Date: 02/05/19 Status: Ordered amLODIPine 2.5 mg oral tablet 2.5 mg, 1 tablet(s), Oral, daily, 30 tablet(s), Tablet(s), 0 Start Date: 05/22/23 Status: Ordered bacitracin 500 units/g topical ointment 1 Applic, Topical, qid, Ointment, 15 gm Start Date: 06/15/18 Status: Ordered Dasetta 7/7/7 oral tablet 1 tablet(s), Oral, qam Start Date: 05/22/23 Status: Ordered Fanapt 4 mg oral tablet [...] Tablet(s), 1, 1, Route to Pharmacy Electronically, [facility], [facility]DP_[id number], 152, cm, 02/06/2021 1217, Height, 56.9, kg, [...] Tablet(s), 2, 2, Route to Pharmacy Electronically, [facility], NCPDP_ID-[id number], 152, cm, 11/27/22 11:22:00 CDT, Height, 53, kg, 09/19/22 11:49:00 CDT, Weight Start Date: 05/06/23 Stop Date: 08/07/23 Status: Ordered Vimpat 50 mg oral tablet 1 tablet(take along w/ 200mg tablet), Oral, bid, 62 tablet(s), Tablet(s), 2, 2, Pt home is on a 31 day cycle;, Route to [facility]ically[id number] 152, cm, 11/27/2310:22:00 CDT, Height, 53, kg, 09/19/22 11:49:00 CDT, Weight Start Date: 05/06/23 Stop Date: 08/07/23 Status: Ordered Vitamin D3 1000 intl units [...] Range]: 1 Peripheral Pulse Rate [60-100 bpm] 84 bp m (05/22/23 1:21 PM) Blood Pressure [89-139/60-90 mm Hg] 113/ 76mm Hg (05/22/23 1:21 PM) Height 152 cm (05/22/23 1:21 PM) Weight 53 kg (05/22/23 1:21 PM) Social History Social History Type Response Alcohol Never alcohol user Substance Abuse Never drug user Smoking Status Never smoker;Never; Tobacco Cessation Counseling Requested N/A entered on: 05/23/22 Sex Neurology Outpatient Note * Sheila Hoff BUSINESS LAW TEACHER: PERFORM Event Display: Neurology Office/Clinic Note Authored Date: Patient Information Name:LITA COLBERT Address: [address] [place] [id number] Sex:Female Date of :1970 [facility]:[id number] Location:[facility] Neurology Registration Date and Time:05/22/2023 12:13 SEWER CONNECTOR Attending Physician: Sheila Hoff BUSINESS LAW TEACHER, Chief Complaint Seizure follow up History of Present Illness Patient presents today??accompanied by caregiver.?She continues oxcarbazepine 600 mg twice a dayand lacosamide 250 mg??twice a day.?? Caregiver reports that she has not had any seizure activity over the last year. ??Patient is very happy today??because she is having fun . ??She 1 flower ring from [employer].?? There is not been any falls or traumatic injury. ??She is taking the medication well wit hout any??side effects. ? HPI 12/08/2016??and updated??as needed:??Ms. iLta Colbert was seen in neurologic consultation at [...] her epilepsy considerably.?? She lives in a fci. Likes to play with a ball and color. She is up at 5 am. Love Flashtalking. 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 As of 2018, patient was??placed on a second agent due to multiple??seizures.?? She was??started on Vimpat 250 mg twice a day??and oxcarbazepine 600 mg twice daily. EEG 11/19/2022??showed interictal epileptiform discharges with mild background slowing but no ongoingseizures.?? Review of Systems No fever, chills, anorexia, malaise, stiff neck, sore throat, cough, chest pain, shortness of breath, dyspnea on exertion, abdominal pain, nausea, vomiting, diarrhea, constipation, blood in the stoolor urine, skin rash, depression or anxiety. Vitals and Measurements Vital Signs Height: 152 cm Height Inches Conversion: 59.8 Weight: 53 kg Weight in Pounds (kg conversion): 116.6 Body Surface Area: 1.4959 m2 Body Mass Index: 22.94 kg/m2 Systolic Blood Pressure: 113 mm Hg Diastolic Blood Pressure: 76 mm Hg Peripheral Pulse Rate: 84 bpm Physical Exam Mental status: Fully awake and alert. Oriented to person, place, and time. Speech is fluent with normal naming, repetition, and comprehension. Follows all commands readily.?? Cranial nerves: Extraocular movements full. [...] and arm swing. Assessment/Plan 1.??G93.49 Static encephalopathy Ordered: .60382 Office Visit Level 4 Est ?? 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 Patient??without any seizure activity over the last year. ??She continues to tolerate the Vimpat and oxcarbazepine without any difficulty. ??We will continue these doses.?? She is followed by primarycare for??general labs.?? We will follow-up in 1 year or earlier if needed.?? The facility??has been asked to??notify us if there is any breakthrough seizures. ?? 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 Patient Care team information Care Team Personnel Name: Precious Walsh MD Position: Physician - Neurology Member Role: Specialist Physician Address: Address: [address] [place] [address] Name: Sheila Hoff BUSINESS LAW TEACHER Position: AMB BUSINESS LAW TEACHER/PA Med Service: Furniture Salesperson Transit Vehicle Inspector Role: Attending Physician Address: Address: [address] [place] [address] [place] Care Team Related Persons Name: JANETTE COLBERT
--- OUTSIDE RECORDS SUMMARY | 2024-04-20 03:36 | XMS_ITS | Encounter Summary ---
Author Organization [facility] Address [address] [place] [address] Phone Care Team Providers Care Traveling Buyer Name Role Phone Armen Gordon MD Primary Care Provider [phone]- [phone] Reason for Visit * Reason Onset Date Comments Results 01/06/2024 Encounter Details Date Type Department Care Team (Late st Contact Info) Description 01/06/2024 Telephone [facility] - Internal Medicine - [place] [address] [place] [address] Mary Reyes, [facility] [address] [place] [address] Results Social History Tobacco Use Types Packs/Day Years Used Date Smoking Tobacco: Never Passive Smoke Exposure: Never Smokeless Tobacco: Never Alcohol Use Standard Drinks/Week Comments Never 0 (1 standard drink = 0.6 oz pur e alcohol) [facility] Utilities Answer Date Recorded In the past [...] often do you attend chur ch or anglican services? Patient unable to answer 07/27/2023 Active [...] Total Score - Questions 1-9 0 11/2023 [employer] of Occupat ional Health - Occupational Stress [...] place to sleep or slept in a retirement (including now)? 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 SHOWROOM SALES ASSISTANT Gender Identity Not on file Sexual Orientation Not on file documented as of this encounter Miscellaneous Notes * Addendum Note - Eze Marroquin RN - 01/15/2024 1:49 PM CDTAddended by: EZE MARROQUIN on: 01/15/2024 01:49 PM Modules accepted: Orders * Telephone Encounter - Eze Marroquin RN - 01/15/2024 1:47 PM CDT Facility aware Faxed lab orders * Telephone Encounter - Mary Reyes PAC - 01/06/2024 11:45 AM CDT Labs received 12-29-2023 K is 4.9; mildly elevated FT4 0.47 mildly low; other thyroid labs normal Decrease K in diet No other findings Repeat CMP in 2 weeks Let facility know [phone] Elizabeth (RN at facility) documented in this encounter Plan of Treatment Scheduled Orders Name Type Priority Associated Diagnoses Orde r Schedule CMP (COMPREHENSIVE METABOLIC PANEL) Lab Routine Serum potassium elevated Expected: 01/15/2024 (Approximate), Expires: 05/16/2024 documented as of this encounter Visit Diagnoses Diagnosis Serum potassium elevated- Primary Hyperpotassemia documented in this encounter Additional Health Concerns Assessment Noted Time PHQ-9 Depression Total Score: 0 07/27/19 24 9:08 AM CDT documented as of this encounter Care Teams Traveling Buyer Relationship Specialty Start Date End Date Armen Gordon MD [address] [place] [address] PCP - General Internal Medicine 06/12/19 documented as of this encounter
--- OUTSIDE RECORDS SUMMARY | 2024-04-20 03:36 | XMS_ITS | Clinical Summary ---
Author Organization [facility] Address [address] [place] [place] [address] Phone Care Team Providers Care Oceanographer Assistant Name Role Phone Armen Gordon MD Primary Care Provider Allergies Active Allergy Reactions Criticality Noted Date Comments [place] Unknown 03/03/2019 Medications Fanapt 4 MG Tablet 0 Active Vimpat 50 MG Tablet 200 mg 2 times daily. 0 Active levothyroxine (SYNTHROID) 25 MCG Tablet 0 Active Dasetta 0.5/0.75/1-35 MG-MCG Tablet 0 Active OXcarbazepine (TRILEPTAL) 600 MG Tablet 0 Active amLODIPine (NORVASC) 2.5 MG Tablet Take 1 Tab by mouth daily. 30 Tab 5 0 Active Cholecalcifero l (VITAMIN D-3 PO) Take by mouth. Activ e folic acid (FOLVITE) 1 MG Tablet Take 1 mg by mouth daily. Active loratadine (CLARITIN) 10 MG Tablet Take 1 Tablet by mouth daily. 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 03/03/2019 Undifferentiated schizophrenia 03/03/2019 Resolved Problems Problem Noted Date Diagnosed Date Resolved Date Hyperglycemia 03/11/2022 04/01/2023 Encounters Date Type Department Care Team Description 03/23/2024 Documentation Only [facility] Internal [facility] [address] [place] [address] Armen Gordon MD 01/19/2024 [facility]phone [facility] [address] [place] [id number] Armen Gordon MD from Last 3 Months Immunizations Immunization Administration Dates Next Due Influenza Vaccine greater than 3 yrs 03/03/2019 Influenza Vaccine, Quadrivalent, PF 01/26/2023,1 Family History Medical History Relation Name Comments No Known Problems Father No Known Problems Mother Relation Name Status Comments Father Alive Mother Alive Social History Tobacco Use Types Packs/Day Years Used Date Smoking Tobacco: Never Passive Smoke Exposure: Never Smokeless Tobacco: Never Tobacco Cessation:Counseling Given: Not Answered Alcohol Use Standard Drinks/Week Comments Never 0 (1 standard drink = 0.6 oz pur e alcohol) [facility] Utilities Answer Date Recorded In the [...] often do you attend chur ch or temple services? Patient unable to answer 07/27/2023 Active [...] Recorded Total Score - Questions 1-9 0 0 11/2023 [facility] of Occupat ional Health - Occupational Stress [...] place to sleep or slept in a longterm (including now)? 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 POULTRY INSEMINATOR Gender Identity Not on file Sexual Orientation Not on file Last Filed Vital Signs Vital Sign Reading Time Taken Comments Blood Pressure 92/60 11/19/2023 1:54 PM CDT Pulse 70 11/19/2023 1:54 PM CDT Temperature 37.5 ??C (99.5 ??F) 11/19/2023 1:54 PM CD T Respiratory Rate 12 11/19/2023 1:54 PM CDT Oxygen Saturation 98% 11/19/2023 1:54 PM CDT Inhaled Oxygen Concentration - - Weight 48.6 kg (107 lb 1.6 oz) 11/19/2023 1:54 P M CDT Height 157.5 cm (5' 2 ) 11/19/2023 1:54 PM CDT Body Mass Index 19.59 11/19/2023 1:54 PM CDT Plan of Treatment Health Maintenance Due Date Last Done Comments Hepatitis C Virus (HCV) Screening 1970 Hepatitis B Immunization (1 of 3 - 19+ 3-dose series) 12/18/1991 HPV/Cotest 2002 Colonoscopy 2017 Colorectal Cancer Screening 2017 Cologuard 2022 Immunochemical Fecal Occult Blood 2022 Mammogram 2022 12/11/2020 Pneumococcal Immunization (50+ years) (2 of 2 - PCV) 2022 06/19/2015 Zoster Immunization (1 of 2) 2022 Cervical Cancer Screening (CCS) 01/01/2023 Pap Smear 01/01/2023 01/02/2020 Influenza Immunization (#1) 2023 10/0 12/2022, 01/20/2022, 02/07/2020, Additional history exists SARS-COV-2 Immunization ( season) 2023 01/29/2022, 03/21/2021, 06/06/2020, Additional history exists Respiratory Syncytial Virus (RSV) Immunization (Adult) (1 - 1-dose 75+ series) 12/18/2047 Pneumococcal Immunization Combined Discontinued 06/19/2015 Discussion re Starting/Frequency of Mammograms Discontinued 12/11/2020 DTaP/Tdap/Td Immunization Discontinued 2023, 08/16/2013, 07/13/2002 TdaP Immunization Completed 07/20/2023, 08/16/2013 Meningococcal Immunization (ACWY) Aged Out No longer eligible based on patient's age to complete this topic Rotavirus Immunization Aged Out No lo nger eligible based on patient's age to complete this topic Procedures Procedure Name Priority Date/Time Associated Diagnosis Comments CT - HEAD/NECK 04/13/2024 12:00 AM POULTRY INSEMINATOR LIPID PANEL 03/29/2024 12:00 AM POULTRY INSEMINATOR HEMOGLOBIN, A1C 03/29/2024 12:00 AM POULTRY INSEMINATOR LIPID PANEL 03/29/2024 12:00 AM POULTRY INSEMINATOR CMP (COMPREHENSIVE METABOLIC PANEL) 03/29/2024 12:00 AM POULTRY INSEMINATOR COMPLETE BLOOD COUNT (CBC) WITH DIFF 03/29/2024 12:00 AM POULTRY INSEMINATOR MAMMOGRAM BILATERAL GENERIC Routine 12/11/2020 from Last 3 Months or Most Recently Relevant to Health Maintenance Results * CT - HEAD/NECK (04/13/2024 12:00 AM POULTRY INSEMINATOR) 04/13/2024 us Provider Scan IMG CT ORDERABLES Final Result SCAN * LIPID PANEL (03/29/2024 12:00 AM POULTRY INSEMINATOR) Only the most recent of2 resultswithin the time period is included. CHOLESTEROL 220 SCAN HDL CHOLESTEROL 95 SCAN LDL 108 SCAN 03/29/2024 us Provider Scan CHEMISTRY ORDERABLES Final Resul t SCAN * HEMOGLOBIN, A1C (03/29/2024 12:00 AM POULTRY INSEMINATOR) HGB-A1C 5.1 SCAN 03/29/2024 us Provider Scan CHEMISTRY ORDERABLES Final Resul t Performing Organization Address City/[facility]/ZIP Co de Phone Number SCAN * CMP (COMPREHENSIVE METABOLIC PANEL) (03/29/2024 12:00 AM POULTRY INSEMINATOR) 03/29/2024 us Provider Scan CHEMISTRY ORDERABLES Final Resul t SCAN * COMPLETE BLOOD COUNT (CBC) WITH DIFF (03/29/2024 12:00 AM POULTRY INSEMINATOR) 03/29/2024 us Provider Scan HEMATOLOGY ORDERABLES Final Resu lt SCAN * MAMMOGRAM BILATERAL MISCELLANEOUS (12/11/2020) Armen Gordon MD IMG MAMMO ORDERABLES Final Result from Last 3 Months or Most Recently Relevant to Health Maintenance Insurance MEDICARE MEDICAID [place] Care Teams Oceanographer Assistant Relationship Specialty Start Date End Date Armen Gordon MD [address] [place] [address] PCP - General Internal Medicine 06/12/19
--- OUTSIDE RECORDS SUMMARY | 2024-04-20 03:36 | XMS_ITS | Encounter Summary ---
Author Organization [facility] Address [address] [place] [address] Phone Care Team Providers Care Sheet Metal Shop Supervisor Name Role Phone Armen Gordon MD Primary Care Provider [phone] Reason for Visit * Reason Comments Cough Encounter Details Date Type Department Care Team (Late st Contact Info) Description 06/23/2022 11:00 AM METROLOGY TECHNICIAN Telemedicine [facility] Medical [facility] - Internal Medicine [place] [address] [place] [address] Armen Gordon MD [address] [place] [address] Upper respiratory tract infection, unspecified type (Primary Dx) Social History Tobacco Use Types Packs/Day Years [...] on file Legal Sex Female 4:01 PM METROLOGY TECHNICIAN Gender Identity Not on file Sexual Orientation Not on file COVID-19 Exposure Response Date Recorded In the last 10 days, have yo u been in contact with someone who was confirmed or suspected to have Coronavirus/COVID-19? No / Unsure 06/09/2022 9:03 AM METROLOGY TECHNICIAN documented as of this encounter Progress Notes * Armen Gordon MD - 06/23/2022 11:00 AM CST PROGRESS NOTE [facility] INTERNAL MEDICINE [address] [place] [address] PHONE: [phone] FAX: [phone] 06/23/2022 NAME: Lita Colbert, : 1970, Assessment ASSESSMENT & PLAN: No follow-ups on file. Diagnoses and all orders for this visit: Upper respiratory tract infection, unspecified type Comments: Patient is advised to take Robitussin DM as needed and will give loratadine 10 mg daily for 7 days.If no improvement in next 3 days call back. Other orders - loratadine (CLARITIN) 10 MG Tablet; Take 1 Tablet by mouth daily. Patient probably has URI. Symptomatic treatment advised at present. Chief Complaint Patient presents with ??? Cough HPI Patient telephone visit with complain of cough for past 3 days. Also has been sneezing for past several days. No shortness of breath. No fever. No nausea vomiting. Mild sore throat present. Patient lives in a [facility]. Telephone conversation done with the patient and [facility] staff. ROS Review of systems was negative, except as documented in HPI PHYSICAL EXAM VITALS: Wt Readings from Last 3 Encounters: 03/11/22 126 lb (57.2 kg) 12/30/21 130 lb (59 kg) 07/23/21 122 lb (55.3 kg) Temp Readings from Last 3 Encounters: 03/11/22 97.1 ??F (36.2 ??C) (Temporal) 12/30/21 97 ??F (36.1 ??C) (Temporal) 07/23/21 98.2 ??F (36.8 ??C) (Temporal) BP Readings from Last 3 Encounters: 03/11/22 100/62 12/30/21 110/64 07/23/21 114/66 Pulse Readings from Last 3 Encounters: 03/11/22 88 12/30/21 80 07/23/21 68 Physical Exam Telephone visit Patient was assessed via telephone for a duration of 5 minutes. Patient verbally consented for thisservice to be performed and billed.The patient was at home. Past medical, surgical, social and family history has been reviewed and updated as necessary. Medications and allergies has been reviewed and updated. Allergies Allergen Reactions ??? [place] Unknown Current Outpatient Medications: ??? amLODIPine (NORVASC) 2.5 MG Tablet ??? Cholecalciferol (VITAMIN D-3 PO) ??? Dasetta 0.5/0.75/1-35 MG-MCG Tablet ??? Fanapt 4 MG Tablet ??? folic acid (FOLVITE) 1 MG Tablet ??? levothyroxine (SYNTHROID) 25 MCG Tablet ??? loratadine (CLARITIN) 10 MG Tablet ??? LORazepam (ATIVAN) 0.5 MG Tablet ??? Nit Remover (Nix Ultra Shampoo All-In-One) Kit ??? OXcarbazepine (TRILEPTAL) 600 MG Tablet ??? Vimpat 50 MG Tablet I educated Lita regarding diagnoses and plan of care. She verbalizes understanding and will call theoffice if situation changes. Voice recognition software was utilized in this dictation. Despite proof reading, typographical errors and/or content errors may have occurred. By: Armen Gordon MD 06/23/2022 11:15 AM METROLOGY TECHNICIAN OLOGY TECHNICIAN documented in this encounter Plan of Treatment Not on file documented as of this encounter Visit Diagnoses Diagnosis Upper respiratory tract infection, unspecified type- Primary documented in this encounter Additional Health Concerns Assessment Noted Time PHQ-9 Depression Total Score: 0 09/28/19 21 10:00 AM CDT documented as of this encounter Care Teams Sheet Metal Shop Supervisor Relationship Specialty Start Date End Date Armen Gordon MD [address] [place] [address] PCP - General Internal Medicine 06/12/19 documented as of this encounter
--- OUTSIDE RECORDS SUMMARY | 2024-04-20 03:36 | XMS_ITS | Encounter Summary ---
Author Organization [facility] Care Team Providers Care Ethical Hacker Name Role Phone Armen Gordon MD Primary Care Provider [phone] Encounter Details Date Type Department Care Team (Latest Contact Info) Description 11/19/2023 Travel Social History Tobacco Use Types Packs/Day Years Used Date Smoking Tobacco: Never Passive Smoke Exposure: Never Smokeless Tobacco: Never Alcohol Use Standard Drinks/Week Comments Never 0 (1 standard drink = 0.6 oz pur e alcohol) [facility] Utilities Answer Date Recorded In the [...] answer 07/27/2023 How often do you attend [facility] or [facility] services? Patient unable to answer 07/27/2023 Active [...] Total Score - Questions 1-9 0 11/2023 [facility] of Occupat ional Health - Occupational [...] place to sleep or slept in a custodial (including now)? 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 SENIOR PROJECT CONTROLS SPECIALIST Gender Identity Not on file Sexual Orientation Not on file documented as of this encounter Plan of Treatment Not on file documented as of this encounter Visit Diagnoses Not on filedocumented in this encounter Additional Health Concerns Assessment Noted Time PHQ-9 Depression Total Score: 0 07/27/19 24 9:08 AM CDT documented as of this encounter Care Teams Ethical Hacker Relationship Specialty Start Date End Date Armen Gordon MD [address] [place] [address] PCP - General Internal Medicine 06/12/19 documented as of this encounter
--- OUTSIDE RECORDS SUMMARY | 2024-04-20 03:36 | XMS_ITS | Continuity of Care Document ---
Author Organization [facility] Address [address] [place] [address] [phone] Encounter [facility] Financial Number [id number] Date(s): 10/05/23 - 10/05/23 [facility] Neurology [address] [place] [address] [phone] Discharge Disposition: Home or Self Care Allergies, Adverse Reactions, Alerts Substance Criticality Severity Reaction Reaction Severity Status lithium Active Assessment and Plan Future Appointments Appointment Date:02/25/2024 01:00:00 PM Scheduled Provider:Sheila Hoff PROGRAM COORDINATOR FOR [employer] Location: Neurology Appointment Type:NN EP Established Patient Medications acetaminophen 325 mg oral tablet 650 mg, 2 tablet(s), Oral, f1rdsnv, PRN, 60 tablet(s), Tablet(s), 0, as needed [...] and 2 qhs, Route to Pharmacy Electronically, [facility], [id number], Instructions Replace Required Details, 152, cm, 08/25/23 10:40:00 CDT, Height, 50, kg, 08/25/23 10:40:00 CDT, Weight Start Date: 08/25/23 Status: Ordered Vimpat 200 mg oral tablet 1 tablet(take along w/ 50mg tablet), Oral, bid, 62 tablet(s), Tablet(s), 2, 2, Route to Pharmacy Electronically, [facility], [id number]_[id number], 152, cm, 05/22/23 13:21:00 ROUNDHOUSE WORKER, Height, 53, kg, 05/22/23 13:21:00 ROUNDHOUSE WORKER, Weight Start Date: 08/08/23 Stop Date: 11/09/23 Status: Ordered Vimpat 50 mg oral tablet 1 tablet(take along w/ 200mg tablet), Oral, bid, 62 tablet(s), Tablet(s), 2, 2, Pt home is on a 31 day cycle;, Route to Pharmacy Electronically, [facility], NCPDP_[id number], 152, cm, 05/22/2412:21:00 ROUNDHOUSE WORKER, Height, 53, kg, 05/22/23 13:21:00 ROUNDHOUSE WORKER, Weight Start Date: 08/08/23 Stop Date: 11/09/23 [...] Neurology Member Role: Specialist Physician Address: Address: [address] [place] [address] Care Team Related Persons Name: JANETTE SHEPHERD
--- OUTSIDE RECORDS SUMMARY | 2024-04-20 03:36 | XMS_ITS | Encounter Summary ---
Author Organization [facility] Care Team Providers Care Hospital Educator Name Role Phone Armen Gordon MD Primary Care Provider [phone] Encounter Details Date Type Department Care Team (Latest Contact Info) Description 04/01/2023 Travel Social History Tobacco Use Types Packs/Day Years Used Date Smoking Tobacco: Never Passive Smoke Exposure: Never Smokeless Tobacco: Never Alcohol Use Standard Drinks/Week Comments Never 0 (1 standard drink = 0.6 oz pur e alcohol) [facility] Utilities Answer Date Recorded In the [...] declined 04/01/2023 How often do you attend gnosticism or yazdanism serv ices? Patient declined 04/01/2023 Do you belong to any clubs o r organizations such as gnosticism groups, unions, fraternal or athletic groups, or [...] Total Score - Questions 1-9 0 03/20 [facility] of Occupat ional Health - Occupational [...] [place] [facility] (including now)? Patient declined 04/01/2023 Sexually Active Control Partners Comments Never Comments No Sex and Gender Information Value Date Recorded Sex Assigned at Not on file Legal Sex Female 4:01 PM LEPIDOPTERIST Gender Identity Not on file Sexual Orientation [...] Time PHQ-9 Depression Total Score: 0 04/01/20 9:03 AM LEPIDOPTERIST documented as of this encounter Care Teams Hospital Educator Relationship Specialty Start Date End Date Armen Gordon MD [address] [place] [address] PCP - General Internal Medicine 06/12/19 documented as of this encounter
--- OUTSIDE RECORDS SUMMARY | 2024-04-20 03:36 | XMS_ITS | Encounter Summary ---
Author Organization [facility] Address [address] [place] [address] Phone Care Team Providers Care Dry Clipper Tender Name Role Phone Armen Gordon MD Primary Care Provider [phone] Encounter Details Date Type Department Care Team (Late st Contact Info) Description 09/11/2023 Telephone [facility] - Internal Medicine - [place] [address] [place] [address] Armen Gordon MD [address] [place] [address] Social History Tobacco Use Types Packs/Day Years Used Date Smoking Tobacco: Never Passive Smoke Exposure: Never Smokeless Tobacco: Never Alcohol Use Standard Drinks/Week Comments Never 0 (1 standard drink = 0.6 oz pur e alcohol) [facility] Utilities Answer Date Recorded In [...] often do you attend chur ch or denominational services? Patient unable to answer 07/27/2023 Active [...] 1-9 0 11/2023 [facility] of Occupat ional Health - Occupational Stress [...] place to sleep or slept in a jail (including now)? 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 GENERAL ACCOUNTING MANAGER Gender Identity Not on file Sexual Orientation Not on file documented as of this encounter Miscellaneous Notes * Telephone Encounter - Analisa Marroquin RN - 09/17/2023 10:43 AM CDT Faxed to facility * Telephone Encounter - Armen Gordon MD - 09/15/2023 7:58 AM CDT Lorazepam Rx sent to take prior to MRI. Okay to start ensure supplement 1 can daily. * Telephone Encounter - Pat Padron - 09/11/2023 10:02 AM CDT Elizabeth from [facility] calling re: 2 things. First patient is having an MRI on 09/23/23 and will need pre-med for sedation. Also she has had some weight loss since December, in December weight was 124 and now she is down to 111. Would she benfit from Ensure supplement? Call back # [phone]. documented in this encounter Plan of Treatment Not on file documented as of this encounter Visit Diagnoses Diagnosis Generalized anxiety disorder documented in this encounter Additional Health Concerns Assessment Noted Time PHQ-9 Depression Total Score: 0 07/27/19 24 9:08 AM CDT documented as of this encounter Care Teams Dry Clipper Tender Relationship Specialty Start Date End Date Armen Gordon MD [address] [place] [address] PCP - General Internal Medicine 06/12/19 documented as of this encounter
--- OUTSIDE RECORDS SUMMARY | 2024-04-20 03:36 | XMS_ITS | Encounter Summary ---
Author Organization [facility] Address [address] [place] [address] Phone Care Team Providers Care Client Onboarding Analyst Name Role Phone Armen Gordon MD Primary Care Provider Reason for Visit * Reason Comments Failure To Thrive Concerns about her w eight loss, and increased seizure activity Encounter Details Date Type Department Care Team (Late st Contact Info) Description 11/19/2023 2:00 PM CDT Office Visit [facility] - Internal Medicine [place] [address] [place] [address] Armen Gordon MD [address] [place] [address] Abnormal weight loss (Primary Dx); Other specified hypothyroidism; Seizure disorder (HCC); Essential hypertension, benign Discharge Disposition: Discharged to home or Selfcare Social History Tobacco Use Types Packs/Day Years Used Date Smoking Tobacco: Never Passive Smoke Exposure: Never Smokeless Tobacco: Never Tobacco Cessation:Counseling Given: Not Answered Alcohol Use Standard Drinks/Week Comments Never 0 (1 standard drink = 0.6 oz pur e alcohol) [facility] Utilities Answer Date Recorded In the past 12 months has [employer], gas, oil, or water [employer] threatened to shut off services in your [...] answer 07/27/2023 How often do you attend [facility] or rastafari services? 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 Orders Pended: no Requested Prescriptions No prescriptions requested or ordered in this encounter Home Medications Medication Sig Start Date End Date Taking? Authorizing Provider aluminum & magnesium hydroxide-simethicone (Antacid) 200-200-20 MG/5ML Suspension 4 (four) times a day Yes Provider, MD Preston amLODIPine (NORVASC) 2.5 MG Tablet Take 1 Tab by mouth daily. 03/29/20 Yes Armen Gordon MD Cholecalciferol (VITAMIN D-3 PO) Take by mouth. Yes Preston Ordoñez MD Cholecalciferol (Vitamin D3) 137445 UNIT/GM Powder Take by mouth. Yes Preston [...] Take 1 Tablet by mouth daily. 06/23/22 Armen Gordon MD LORazepam (ATIVAN) 0.5 MG Tablet 1-2 tabs po one hour before MRI 09/15/23 Armen Gordon MD Multiple Vitamin (Multivitamins) Capsule Rx: Multivitamins Capsule Yes Preston Ordoñez MD OXcarbazepine (TRILEPTAL) 600 MG Tablet 03/20/20 Yes Preston Ordoñez MD Vimpat 50 MG Tablet 200 mg 2 times daily. 03/12/20 Yes Preston Ordoñez MD There are no discontinued medications. I have reviewed the home medication list with the patient and guardian and have reconciled discrepancies. The list is accurate to the best of my knowledge. Smoking Status: Social History Tobacco Use Smoking status: Never Passive exposure: Never Smokeless tobacco: Never Vaping Use Vaping status: Never Used Substance Use Topics Alcohol use: Never Drug [...] been addressed with the patient today: BMI * Armen Gordon MD - 11/19/2023 2:00 PM CDT PROGRESS NOTE [facility] [address] [place] [address] PHONE: [phone] FAX: [phone] 11/19/2023 NAME: Lita Colbert, : 1970, Assessment ASSESSMENT & PLAN: No follow-ups on file. Diagnoses and all orders for this visit: Abnormal weight loss Comments: Will check CBC, CMP, T4, TSH. Also recommended colorectal cancer screening, mammogram and cervical cancer screening. Orders: - COMPLETE BLOOD COUNT (CBC) WITH DIFF; Future - CMP (COMPREHENSIVE METABOLIC PANEL); Future Other specified hypothyroidism - THYROXINE (T4) FREE; Future - THYROID STIMULATING HORMONE (TSH); Future Seizure disorder (HCC) Comments: Recommended follow-up with neurologist. Essential hypertension, benign Comments: Will DC amlodipine due to low blood pressure. Follow-up depends upon test reports. Chief Complaint Patient presents with Failure To Thrive Concerns about her weight loss, and increased seizure activity Failure To Thrive Patient is here with complain of significant weight loss recently. Patient lives in a senior care. Here with senior care staff. Recently also having frequent seizure activities. No chest pain or palpitation. Appetite is fair. No headache or dizziness. No abdominal pain, nausea vomiting. No cough or shortness of breath. ROS Review of systems was negative, except as documented in HPI PHYSICAL EXAM VITALS: Wt Readings from Last 3 Encounters: 11/19/23 107 lb 1.6 oz (48.6 kg) 07/27/23 112 lb (50.8 kg) 04/01/23 121 lb (54.9 kg) Temp Readings from Last 3 Encounters: 11/19/23 99.5 ??F (37.5 ??C) (Temporal) 07/27/23 97.6 ??F (36.4 ??C) (Temporal) 04/01/23 98.7 ??F (37.1 ??C) (Temporal) BP Readings from Last 3 Encounters: 11/19/23 92/60 07/27/23 110/70 04/01/23 116/70 Pulse Readings from Last 3 Encounters: 11/19/23 70 07/27/23 90 04/01/23 78 Physical Exam Vitals and nursing note reviewed. [...] Abdomen is flat. Bowel sounds are normal. There is no distension. Palpations: Abdomen is soft. There is no mass. Tenderness: There is no abdominal tenderness. Musculoskeletal: General: Normal range of motion. Cervical back: Normal range of motion and neck supple. Lymphadenopathy: Cervical: No cervical adenopathy. Skin: General: Skin is warm and dry. Neurological: General: No focal deficit present. Mental Status: She is alert and oriented to person, place, and time. Psychiatric: Mood and Affect: Mood normal. Behavior: Behavior normal. Past medical, surgical, social and family history has been reviewed and updated as necessary. Medications and allergies has been reviewed and updated. Allergies Allergen Reactions [place] Unknown Current Outpatient Medications: aluminum & magnesium hydroxide-simethicone (Antacid) 200-200-20 MG/5ML Suspension amLODIPine (NORVASC) 2.5 MG Tablet Cholecalciferol (VITAMIN D-3 PO) Ruthann 0.5/0.75/1-35 MG-MCG Tablet Fanapt 4 MG [...] may have occurred. By: Armen Gordon MD 11/19/2023 2:21 PM CDT documented in this encounter Plan of Treatment Not on file documented as of this encounter Procedures Procedure Name Priority Date/Time Associated Diagnosis Comments THYROXINE (T4) FREE Routine 12/29/2023 1 2:00 AM CDT Other specified hypothyroidism THYROID STIMULATING HORMONE (TSH) Routine 12/29/2023 12:00 AM CDT Other specified hypothyroidism CMP (COMPREHENSIVE METABOLIC PANEL) Routine 12/29/2023 12:00 AM CDT Abnormal weight loss COMPLETE BLOOD COUNT (CBC) WITH DIFF Routine 12/29/2023 12:00 AM CDT Abnormal weight loss documented in this encounter Results * THYROID STIMULATING HORMONE (TSH) (12/29/2023 12:00 AM CDT) Blood Armen Gordon MD CHEMISTRY ORDERABLES Final Result Performing Organization Address [facility] de Phone Number SCAN * THYROXINE (T4) FREE (12/29/2023 12:00 AM CDT) Blood us Armen Gordon MD CHEMISTRY ORDERABLES Final Result Performing Organization Address [facility] de Phone Number SCAN * CMP (COMPREHENSIVE METABOLIC PANEL) (12/29/2023 12:00 AM CDT) Blood us Armen Gordon MD CHEMISTRY ORDERABLES Final Result Performing Organization Address [facility] de Phone Number SCAN * COMPLETE BLOOD COUNT (CBC) WITH DIFF (12/29/2023 12:00 AM CDT) Blood us Armen Gordon MD HEMATOLOGY ORDERABLES Final Result Performing Organization Address [facility] de Phone Number SCAN documented in this encounter Visit Diagnoses Diagnosis Abnormal weight loss- Primary Loss of weight Other specified hypothyroidism Seizure disorder (HCC) Unspecified epilepsy without mention of intractable epilepsy Essential hypertension, benign documented in this encounter Additional Health Concerns Assessment Noted Time PHQ-9 Depression Total Score: 0 07/27/19 24 9:08 AM CDT documented as of this encounter Care Teams Client Onboarding Analyst Relationship Specialty Start Date End Date Armen Gordon MD [address] [place] [address] PCP - General Internal Medicine 06/12/19 documented as of this encounter
--- OUTSIDE RECORDS SUMMARY | 2024-04-20 03:37 | XMS_ITS | Encounter Summary ---
Author Organization [facility] Care Team Providers Care Outside Parts Salesman Name Role Phone Armen Gordon MD Primary Care Provider [phone] Encounter Details Date Type Department Care Team (Latest Contact Info) Description 03/08/2021 Travel Social History Tobacco Use Types Packs/Day Years Used Date Smoking Tobacco: Never Smokeless Tobacco: Never Alcohol Use Standard Drinks/Week Comments Never 0 (1 standard drink = 0.6 oz pur e alcohol) PHQ-2 Answer Date Recorded Total Score - Questions 1-9 0 09/18 Sexually Active Control Partners Comments Never Comments No Sex and Gender Information Value Date Recorded Sex Assigned at Not on file 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 No / Unsure 03/08/2021 11:23 AM LIDAR SCIENTIST documented as of this encounter Plan of Treatment Not on file documented as of this encounter Visit Diagnoses Not on filedocumented in this encounter Additional Health Concerns Assessment Noted Time PHQ-9 Depression Total Score: 0 09/28/19 21 10:00 AM CDT documented as of this encounter Care Teams Outside Parts Salesman Relationship Specialty Start Date End Date Armen Gordon MD [address] [place] [address] PCP - General Internal Medicine 06/12/19 documented as of this encounter
--- OUTSIDE RECORDS SUMMARY | 2024-04-20 03:37 | XMS_ITS | Encounter Summary ---
Author Organization [facility] Address [address] [place] [address] Phone Care Team Providers Care Risk Management Director Name Role Phone Armen Gordon MD Primary Care Provider [phone] Reason for Visit * Reason Comments ED Follow-up Fell and hit fore he ad Encounter Details Date Type Department Care Team (Late st Contact Info) Description 12/30/2021 3:00 PM CDT Office Visit [facility] - Internal Medicine [place] [address] [place] [address] Armen Gordon MD [address] [facility] [place] [address] Contusion of scalp, sequela (Primary Dx) Discharge Disposition: Discharged to [...] on file 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 No / Unsure 12/30/2021 2:55 PM CDT documented as of this encounter Last Filed Vital Signs Vital Sign Reading Time Taken Comments Blood Pressure 110/64 12/30/2021 3:02 PM CDT Pulse 80 12/30/2021 3:02 PM CDT Temperature 36.1 ??C (97 ??F) 12/30/2021 3:02 PM CDT Respiratory Rate - - Oxygen Saturation 97% 12/30/2021 3:02 PM CDT Inhaled Oxygen Concentration - - Weight 59 kg (130 lb) 12/30/2021 3:02 PM CDT Height 149.9 cm (4' 11 ) 12/30/2021 3:02 PM CDT Body Mass Index 26.26 12/30/2021 3:02 PM CDT documented in this encounter Progress Notes * Migdalia Dominguez CMA - 12/30/2021 3:00 PM CDT Lita Colbert is a 51 y.o. female with current BMI: Body mass index is 26.26 kg/m??. Interventions discussed including: encourage daily physical activity and well- balanced diet. * Migdalia Dominguez CMA - 12/30/2021 3:00 PM CDT Lita Colbert, 51 y.o., female is here for ED Follow-up (Fell and hit fore head) Medication Refills: Patient reports/denies need for medication refills. Orders Pended: no Requested Prescriptions No prescriptions requested or ordered in this encounter Home Medications Medication Sig Start Date End Date Taking? Authorizing Provider amLODIPine (NORVASC) 2.5 MG Tablet Take 1 Tab by mouth daily. 03/29/20 Yes Armen Gordon MD Cholecalciferol (VITAMIN D-3 PO) Take by mouth. Yes Provider, MD Ruthann Johnston 0.5/0.75/1-35 MG-MCG Tablet 03/22/20 Yes ProviderPreston MD Fanapt 4 MG Tablet 03/12/20 Yes ProviderPreston MD folic acid (FOLVITE) 1 MG Tablet Take 1 mg by mouth daily. Yes ProviderPreston MD levothyroxine (SYNTHROID) 25 MCG Tablet 03/20/20 Yes ProviderPreston MD OXcarbazepine (TRILEPTAL) 600 MG Tablet 03/20/20 Yes Provider, MD Preston Vimpat 50 MG Tablet 200 mg 2 times daily. 03/12/20 Yes Provider, MD Preston There are no discontinued medications. I have reviewed the home medication list with the patient and have reconciled discrepancies. The list is accurate to the best of my knowledge. Smoking Status: Social History Tobacco Use ??? Smoking status: Never Smoker ??? Smokeless tobacco: Never Used Vaping Use ??? Vaping Use: Never used Substance Use Topics ??? Alcohol use: Never ??? Drug use: Never Smoking Cessation Counseling Given: no Health Care Maintenance: Health Maintenance Due Topic Date Due ??? Hepatitis B Immunization (1 of 3 - 3-dose series) Never done ??? DTaP/Tdap/Td Immunization (3 - Td or Tdap) 02/15/2014 ??? Colorectal Cancer Screening Never done ??? Influenza Immunization (1) 12/19/2021 Orders Pended: no The following BPA's have been addressed with the patient today: Smoking * Armen Gordon MD - 12/30/2021 3:00 PM CDT PROGRESS NOTE [facility] - INTERNAL MEDICINE [address] [place] [address] PHONE: [phone] FAX: [phone] 12/30/2021 NAME: Lita Colbert, : 1970, Assessment ASSESSMENT & PLAN: No follow-ups on file. Diagnoses and all orders for this visit: Contusion of scalp, sequela Comments: Staff is advised to monitor for change in mental status. Follow-up as Chief Complaint Patient presents with ??? ED Follow-up Fell and hit fore head [facility] Patient is here for follow-up for head injury. According to staff about 1 week ago patient was found on the floor. Noticed bruise on forehead. Was taken to [facility] ER. Workup was unremarkable. Here she has for follow-up. She is feeling well. No headache or dizziness. She is at baseline. Ambulating. No nausea vomiting. ROS Review of systems was negative, except as documented in [facility] PHYSICAL EXAM VITALS: Wt Readings from Last 3 Encounters: 12/30/21 130 lb (59 kg) 07/23/21 122 lb (55.3 kg) 07/19/21 123 lb (55.8 kg) Temp Readings from Last 3 Encounters: 12/30/21 97 ??F (36.1 ??C) (Temporal) 07/23/21 98.2 ??F (36.8 ??C) (Temporal) 07/19/21 98.1 ??F (36.7 ??C) (Temporal) BP Readings from Last 3 Encounters: 12/30/21 110/64 07/23/21 114/66 07/19/21 112/68 Pulse Readings from Last 3 Encounters: 12/30/21 80 07/23/21 68 07/19/21 76 Physical Exam Vitals and nursing note reviewed. Constitutional: Appearance: Normal appearance. HENT: Head: Normocephalic. Comments: Has a small bruise on the forehead which is resolving. Eyes: Extraocular Movements: Extraocular movements intact. Conjunctiva/sclera: Conjunctivae normal. Pupils: Pupils are equal, round, and reactive to light. Cardiovascular: Rate and Rhythm: Normal rate and regular rhythm. Pulses: Normal pulses. Heart sounds: Normal heart sounds. Pulmonary: Effort: Pulmonary effort is normal. Breath sounds: Normal breath sounds. Musculoskeletal: General: Normal range of motion. Cervical back: Normal range of motion and neck supple. Skin: General: Skin is warm and dry. Neurological: General: No focal deficit present. Mental Status: She is alert. Mental status is at baseline. Comments: Patient is alert. At baseline. Ambulating. Follows commands. Psychiatric: Mood and Affect: Mood normal. Behavior: Behavior normal. Past medical, surgical, social and family history has been reviewed and updated as necessary. Medications and allergies has been reviewed and updated. Allergies Allergen Reactions ??? [place] Unknown Current Outpatient Medications: ??? amLODIPine (NORVASC) 2.5 MG Tablet ??? Cholecalciferol (VITAMIN D-3 PO) ??? [place] 0.5/0.75/1-35 MG-MCG Tablet ??? Fanapt 4 MG Tablet ??? folic acid (FOLVITE) 1 MG Tablet ??? levothyroxine (SYNTHROID) 25 MCG Tablet ??? OXcarbazepine (TRILEPTAL) 600 MG Tablet ??? Vimpat 50 MG Tablet I educated Lita regarding diagnoses and plan of care. She verbalizes understanding and will call theoffice if situation changes. Voice recognition software was utilized in this dictation. Despite proof reading, typographical errors and/or content errors may have occurred. By: Armen Gordon MD 12/30/2021 3:37 PM CDT documented in this encounter Plan of Treatment Not on file documented as of this encounter Visit Diagnoses Diagnosis Contusion of scalp, sequela- Primary documented in this encounter Additional Health Concerns Assessment Noted Time PHQ-9 Depression Total Score: 0 09/28/19 21 10:00 AM CDT documented as of this encounter Care Teams Risk Management Director Relationship Specialty Start Date End Date Armen Gordon MD [address] [place] [address] PCP - General Internal Medicine 06/12/19 documented as of this encounter
--- OUTSIDE RECORDS SUMMARY | 2024-04-20 03:37 | XMS_ITS | Encounter Summary ---
Author Organization [facility] Address [address] [place] [address] Phone Care Team Providers Care Invoice Coder Name Role Phone Armen Gordon MD Primary Care Provider [phone] Reason for Visit * Reason Comments Preventive Care Encounter Details Date Type Department Care Team (Late st Contact Info) Description 03/11/2022 10:45 AM CHANGE MANAGEMENT LEAD Office Visit [facility] - [facility] [address] [place] [address] Armen Gordon MD [address] [place] [address] Essential hypertension, benign (Primary Dx); Other specified hypothyroidism; High risk medication use; Hyperglycemia; 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) Discharge Disposition: Discharged to home or Selfcare Social History Tobacco Use Types Packs/Day Years Used Date Smoking Tobacco: Never Smokeless Tobacco: Never Tobacco Cessation:Counseling Given: Not Answered Alcohol Use Standard Drinks/Week Comments Never 0 (1 standard drink = 0.6 oz pur e alcohol) PHQ-2 Answer Date Recorded Total Score - Questions 1-9 0 04/0 04/2021 Sexually Active Control Partners Comments Never Comments No Sex and Gender Information Value Date Recorded Sex Assigned at Not on file Legal Sex Female 4:01 PM CHANGE MANAGEMENT LEAD Gender Identity Not on file Sexual Orientation Not on file COVID-19 Exposure Response Date Recorded In the last 10 days, have yo u been in contact with someone who was confirmed or suspected to have Coronavirus/COVID-19? No / Unsure 06/09/2022 9:03 AM CHANGE MANAGEMENT LEAD documented as of this encounter Last Filed Vital Signs Vital Sign Reading Time Taken Comments Blood Pressure 100/62 03/11/2022 10:29 AM CHANGE MANAGEMENT LEAD Pulse 88 03/11/2022 10:29 AM CHANGE MANAGEMENT LEAD Temperature 36.2 ??C (97.1 ??F) 03/11/2022 10:[address] Respiratory Rate - - Oxygen Saturation 96% 03/11/2022 10:29 AM CHANGE MANAGEMENT LEAD Inhaled Oxygen Concentration - - Weight 57.2 kg (126 lb) 03/11/2022 10:29 AM CHANGE MANAGEMENT LEAD Height 149.9 cm (4' 11 ) 03/11/2022 10:29 AM CHANGE MANAGEMENT LEAD Body Mass Index 25.45 03/11/2022 10:29 AM CHANGE MANAGEMENT LEAD documented in this encounter Functional Status * Question Answer Date of Assessment Author Little interest or pleasure in doing things Not at all 03/11/2022 10:00 AM Estefani Pyle CMA Feeling down, depressed, or hopeless Not at all 03/11/2022 10:00 AM CHANGE MANAGEMENT LEAD Migdalia Dominguez CMA * Over the past 2 weeks, how often have you been bothered by any of the following problems? Question Answer Date of Assessment Author Patient Health Questionnaire -2 Score 0 03/11/2022 10:00 AM Migdalia Pyle CMA documented as of this encounter Progress Notes * Migdalia Dominguez CMA - 03/11/2022 10:45 AM CST Lita Mi Colbert, 51 y.o., female is here for Preventive Care Medication Refills: Patient reports/denies need for medication refills. Orders Pended: no Requested Prescriptions No prescriptions requested or ordered in this encounter Home Medications Medication Sig Start Date End Date Taking? Authorizing Provider amLODIPine (NORVASC) 2.5 MG Tablet Take 1 Tab by mouth daily. 03/29/20 Yes Armen Gordon MD Cholecalciferol (VITAMIN D-3 PO) Take by mouth. Yes Provider, HistoricalMD [place] 0.5/0.75/1-35 MG-MCG Tablet 03/22/20 Yes Provider, HistoricalMD Fanapt 4 MG Tablet 03/12/20 Yes Provider, HistoricalMD folic acid (FOLVITE) 1 MG Tablet Take 1 mg by mouth daily. Yes Provider, MD Preston levothyroxine (SYNTHROID) 25 MCG Tablet 03/20/20 Yes Provider, HistoricalMD OXcarbazepine (TRILEPTAL) 600 MG Tablet 03/20/20 Yes Provider, MD Preston Vimpat 50 MG Tablet 200 mg 2 times daily. 03/12/20 Yes Provider, MD Preston There are no discontinued medications. I have reviewed the home medication list with the patient and have reconciled discrepancies. The list is accurate to the best of my knowledge. Smoking Status: Social History Tobacco Use ??? Smoking status: Never ??? Smokeless tobacco: Never Vaping Use [...] ??? Colorectal Cancer Screening Never done ??? SARS-COV-2 Immunization (4 - Booster for Pfizer series) 05/16/2021 ??? Influenza Immunization (1) 12/19/2021 Orders Pended: no The following BPA's have been addressed with the patient today: Smoking and Depression GE MANAGEMENT LEAD * Armen Gordon MD - 03/11/2022 10:45 AM CST PROGRESS NOTE [facility] - [facility]ICINE [address] [place] [address] PHONE: [phone] FAX: [phone] 03/11/2022 NAME: Lita Colbert, : 1970, Assessment ASSESSMENT & PLAN: No follow-ups on file. Diagnoses and all orders for this visit: Essential hypertension, benign Comments: Stable. Continue current medication Orders: - CMP (COMPREHENSIVE METABOLIC PANEL); Future - LIPID PANEL; Future - CMP (COMPREHENSIVE METABOLIC PANEL) - LIPID PANEL Other specified hypothyroidism Comments: Continue levothyroxine Orders: - THYROXINE (T4) FREE; Future - THYROID STIMULATING HORMONE (TSH); Future - THYROXINE (T4) FREE - THYROID STIMULATING HORMONE (TSH) High risk medication use - COMPLETE BLOOD COUNT (CBC) WITH DIFF; Future - COMPLETE BLOOD COUNT (CBC) WITH DIFF Hyperglycemia Comments: Check HbA1c Orders: - HEMOGLOBIN A1C W/ ESTIMATED GLUCOSE; Future - HEMOGLOBIN A1C W/ ESTIMATED GLUCOSE 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 Continue current medications. Continue follow-up with neurologist Check CBC, CMP, lipid profile, TFT, HbA1c. Chief Complaint Patient presents with ??? Preventive Care HPI Patient is here for follow-up for hypertension other medical problems. Feeling well. No abdominal pain nausea vomiting. No recent seizure activities. Tolerating medications well. [facility] with [facility] staff. ROS Review of systems was negative, [...] 88 12/30/21 80 07/23/21 68 Physical Exam Vitals and nursing note reviewed. [...] reviewed and updated. Allergies Allergen Reactions ??? [place] Unknown Current Outpatient Medications: ??? amLODIPine (NORVASC) [...] may have occurred. By: Armen Gordon MD 03/11/2022 10:58 AM CHANGE MANAGEMENT LEAD GE MANAGEMENT LEAD * Tomeka Dinh RMA - 03/11/2022 10:45 AM CST Lita presents for lab draw per order of Dr. Gordon dated 03/11/2022. Specimen collected from left antecubital without incident. GE MANAGEMENT LEAD documented in this encounter Plan of Treatment Not on file documented as of this encounter Procedures Procedure Name Priority Date/Time Associated Diagnosis Comments HEMOGLOBIN A1C W/ ESTIMATED GLUCOSE Routine 03/11/2022 11:00 AM CHANGE MANAGEMENT LEAD Hyperglycemia CBC WITH AUTO DIFFERENTIAL Routine 03/11/2022 11:00 AM CHANGE MANAGEMENT LEAD High risk medication use THYROXINE (T4) FREE Routine 03/11/2022 1 1:00 AM CHANGE MANAGEMENT LEAD Other specified hypothyroidism THYROID STIMULATING HORMONE (TSH) Routine 03/11/2022 11:00 AM CHANGE MANAGEMENT LEAD Other specified hypothyroidism LIPID PANEL Routine 03/11/2022 11:00 AM CHANGE MANAGEMENT LEAD Essential hypertension, benign CMP (COMPREHENSIVE METABOLIC PANEL) Routine 03/11/2022 11:00 AM CHANGE MANAGEMENT LEAD Essential hypertension, benign COMPLETE BLOOD COUNT (CBC) WITH DIFF Routine 03/11/2022 11:00 AM CHANGE MANAGEMENT LEAD High risk medication use documented in this encounter Results * (ABNORMAL) CBC WITH AUTO DIFFERENTIAL (03/11/2022 11:00 AM CHANGE MANAGEMENT LEAD) [facility] WBC 5.26 4.00 - 12.00 10(3)/mcL 03/11/2022 3:17 PM [facility] RBC 3.94 3.80 - 5.30 10(6)/mcL 03/11/2022 3:17 PM [facility] HEMOGLOBIN (HGB) 11.8(L) 12.0 - 15.8 g/dL 03/11/2022 3:17 PM [facility] HEMATOCRIT (HCT) 37.3 36.0 - 47.0 % 03/11/2022 3:17 PM [facility] MCV 94.7 82.0 - 96.0 fL 03/11/2022 3:17 PM [facility] MCH 29.9 26.0 - 34.0 pg 03/11/2022 3:17 PM [facility] MCHC 31.6 31.0 - 36.0 g/dL 03/11/2022 3:17 PM [facility] PLATELET COUNT 265 140 - 440 10(3)/mcL 03/11/2022 3:17 PM [facility] RDW 12.7 11.8 - 15.5 % 03/11/2022 3:17 PM [facility] MPV 10.5 9.7 - 12.4 fL 03/11/2022 3:17 PM [facility] NEUTROPHILS 60.1 47.0 - 73.0 % 03/11/2022 3:17 PM [facility] LYMPHOCYTES 28.1 18.0 - 42.0 % 03/11/2022 3:17 PM CHANGE MANAGEMENT LEAD [facility] MONOCYTES 11.0 4.0 - 12.0 % 03/11/2022 3:17 PM [facility] EOSINOPHILS 0.8 0.0 - 5.0 % 03/11/2022 3:17 PM [facility] BASOPHILS 0.0 0.0 - 1.0 % 03/11/2022 3:17 PM CHANGE MANAGEMENT LEAD [facility] ABSOLUTE NEUTROPHILS 3.16 1.60 - 7.70 10(3)/[facility] 03/11/2022 3:17 PM [facility] ABSOLUTE LYMPHOCYTES 1.48 1.30 - 3.20 10(3)/[facility] 03/11/2022 3:17 PM [facility] ABSOLUTE MONOCYTES 0.58 0.20 - 1.00 10(3)/[facility] 03/11/2022 3:17 PM [facility] ABSOLUTE EOSINOPHIL 0.04 0.00 - 0.40 10(3)/[facility] 03/11/2022 3:17 PM [facility] ABSOLUTE BASOPHILS 0.00 0.00 - 0.10 10(3)/[facility] 03/11/2022 3:17 PM [facility] NRBC PER 100 WBC 0 03/11/20 3:17 PM [facility] Blood Venipuncture / Unknown 03/11/2022 11:00 AM CHANGE MANAGEMENT LEAD 03/11/2022 11:00 AM [facility] us Armen Gordon MD HEMATOLOGY ORDERABLES Final Result [facility] [place] [address] * THYROID STIMULATING HORMONE (TSH) (03/11/2022 11:00 AM CHANGE MANAGEMENT LEAD) TSH 1.140 0.270 - 4.200 mIU/L 03/11/2022 3:58 PM CHANGE MANAGEMENT LEAD [facility] Blood Venipuncture / Unknown 03/11/2022 11:00 AM CHANGE MANAGEMENT LEAD 03/11/2022 11:00 AM CHANGE MANAGEMENT LEAD Result [facility] Armen Gordon MD CHEMISTRY ORDERABLES Final Result Performing Organization Address City/[facility]/ZIP Co de Phone Number [facility] [place] [address] * (ABNORMAL) THYROXINE (T4) FREE (03/11/2022 11:00 AM CHANGE MANAGEMENT LEAD) T4 FREE 0.8(L) 0.9 - 1.7 ng/dL 03/11/2022 3:58 PM CHANGE MANAGEMENT LEAD [facility] Blood Venipuncture / Unknown 03/11/2022 11:00 AM CHANGE MANAGEMENT LEAD 03/11/2022 11:00 AM CHANGE MANAGEMENT LEAD Result [facility] Armen Gordon MD CHEMISTRY ORDERABLES Final Result Performing Organization Address City/[facility] Co de Phone Number [facility] [place] [address] * HEMOGLOBIN A1C W/ ESTIMATED GLUCOSE (03/11/2022 11:00 AM CHANGE MANAGEMENT LEAD) HGB-A1C 5.0 4.0 - 6.0 % 03/11/2022 3:30 PM CHANGE MANAGEMENT LEAD [facility] Est Average Glucose 96.8 mg/dL 03/11/2022 3:30 PM CHANGE MANAGEMENT LEAD [facility] Blood Venipuncture / Unknown 03/11/2022 11:00 AM CHANGE MANAGEMENT LEAD 03/11/2022 11:00 AM CHANGE MANAGEMENT LEAD Narrative [facility] - 03/11/2022 3:30 PM CHANGE MANAGEMENT LEAD HEMOGLOBIN A1C: DIABETIC PATIENTS: WELL-CONTROLLED: ?? 6.2 - 7.0 INTERMEDIATE WELL-CONTROLLED: ??7.0 - 9.0 POORLY-CONTROLLED: ??>9.0 Result [facility] us Armen Gordon MD CHEMISTRY ORDERABLES Final Result Performing Organization Address City/[facility]/ZIP Co de Phone Number [facility] [place] [address] * LIPID PANEL (03/11/2022 11:00 AM CHANGE MANAGEMENT LEAD) CHOLESTEROL 170 <=200 mg/dL 03/11/2022 3:58 PM CHANGE MANAGEMENT LEAD [facility] TRIGLYCERIDES 52 <150 mg/dL 03/11/2022 3:58 PM CHANGE MANAGEMENT LEAD [facility] HDL CHOLESTEROL 91.6 >40 mg/dL 3:58 PM CHANGE MANAGEMENT LEAD [facility] LDL 68 5 - 130 mg/dL 03/11/2022 3:58 PM CHANGE MANAGEMENT LEAD [facility] VLDL 10 5 - 55 mg/dL 03/11/2022 3:58 PM CHANGE MANAGEMENT LEAD [facility] CHOL/HDL RATIO 1.9 0.0 - 4.4 03/11/2022 3:58 PM CHANGE MANAGEMENT LEAD [facility] NON-HDL CHOLESTEROL 78.4 <130 mg/dL 03/11/2022 3:58 PM CHANGE MANAGEMENT LEAD [facility] Blood Venipuncture / Unknown 03/11/2022 11:00 AM CHANGE MANAGEMENT LEAD 03/11/2022 11:00 AM CHANGE MANAGEMENT LEAD Armen Gordon MD CHEMISTRY ORDERABLES Final Result Performing Organization Address City/[facility]/ZIP Co de Phone Number [facility] [place] [address] * (ABNORMAL) CMP (COMPREHENSIVE METABOLIC PANEL) (03/11/2022 11:00 AM CHANGE MANAGEMENT LEAD) SODIUM 134(L) 136 - 144 mmol/L 03/11/2022 3:58 PM CHANGE MANAGEMENT LEAD [facility] POTASSIUM 3.6 3.5 - 5.1 mmol/L 03/11/2022 3:58 PM CHANGE MANAGEMENT LEAD [facility] CHLORIDE 101 100 - 110 mmol/L 03/11/2022 3:58 PM [facility] CO2, VENOUS 22 22 - 32 mmol/L 03/11/2022 3:58 PM [facility] ANION GAP 14.6 8.0 - 20.0 mmol/L 03/11/2022 3:58 PM [facility] GLUCOSE 77 70 - 99 mg/dL 03/11/2022 3:58 PM [facility] BUN 14 6 - 20 mg/dL 03/11/2022 3:58 PM [facility] CREATININE, BLOOD 1.34(H) 0.60 - 1.10 mg/dL 03/11/2022 3:58 PM [facility] BUN/CREATININE RATIO 10(L) 12 - 20 ratio 03/11/2022 3:58 PM [facility] TOTAL PROTEIN 7.0 6.0 - 8.3 g/dL 03/11/2022 3:58 PM [facility] ALBUMIN 3.6 3.5 - 5.2 g/dL 03/11/2022 3:58 PM [facility] Comment: The colormetric methods used for the determination of Albumin may lead to falsely elevated test results in patients suffering from renal failure or insufficiency due to interference with other proteins. A/G RATIO 1.1 1.0 - 2.0 03/11/2022 3:58 PM [facility] CALCIUM 9.1 8.9 - 10.3 mg/dL 03/11/2022 3:58 PM [facility] T BILI <0.3 <=1.2 mg/dL 03/11/2022 3:58 PM [facility] SGOT (AST) 16 <=32 U/L 03/11/2022 3:58 PM [facility] SGPT (ALT) 12 <=41 U/L 03/11/2022 3:58 PM [facility] ALKALINE PHOSPHATASE 45 35 - 105 U/L 03/11/2022 3:58 PM [facility] IS THE PATIENT REQUIRED TO BE FASTING? No 03/11/2022 3:58 PM CHANGE MANAGEMENT LEAD [facility] GFR, ESTIMATED 49(L) >=60 03/11/2022 3:58 PM CHANGE MANAGEMENT LEAD [facility] Comment: Creatinine Clearance is the preferred criteria for selecting drug dose adjustments in renally impaired patients. ??The GFR is provided as additional pertinent clinical information. GFR is reported in mL/min/1.73 sq m. Calculation based on the Chronic Kidney Disease Epidemiology Collaboration (CKD- EPI) equation refit without adjustment for race. GFR, EST. 51(L) >=60 022 3:58 PM CHANGE MANAGEMENT LEAD [facility] GFR, EST. NONAFRICAN 42(L) >=60 03/11/2022 3:58 PM CHANGE MANAGEMENT LEAD [facility] Blood Venipuncture / Unknown 03/11/2022 11:00 AM CHANGE MANAGEMENT LEAD 03/11/2022 11:00 AM CHANGE MANAGEMENT LEAD Armen Gordon MD CHEMISTRY ORDERABLES Final Result [facility] [place] [address] documented in this encounter Visit Diagnoses Diagnosis Essential hypertension, benign- Primary Other specified hypothyroidism High risk medication use Encounter for long-term (current) use of other medications Hyperglycemia Other abnormal glucose 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) Localization-related (focal) (partial) epilepsy and epileptic syndromes with complex partial seizures, without mention of intractable epilepsy documented in this encounter Additional Health Concerns Assessment Noted Time PHQ-9 Depression Total Score: 0 09/28/19 21 10:00 AM CDT documented as of this encounter Care Teams Invoice Coder Relationship Specialty Start Date End Date Armen Gordon MD [address] [place] [address] PCP - General Internal Medicine 06/12/19 documented as of this encounter
--- OUTSIDE RECORDS SUMMARY | 2024-04-20 03:37 | XMS_ITS | Encounter Summary ---
Author Organization [facility] Care Team Providers Care Acetylene Gas Compressor Name Role Phone Armen Gordon MD Primary Care Provider [phone]- [phone] Encounter Details Date Type Department Care Team (Latest Contact Info) Description 07/15/2021 Travel Social History Tobacco Use Types Packs/Day [...] on file Legal Sex Female 4:01 PM VIDEO EFFECTS EDITOR Gender Identity Not on file Sexual Orientation Not on file COVID-19 Exposure Response Date Recorded In the last 10 days, have yo u been in contact with someone who was confirmed or suspected to have Coronavirus/COVID-19? No / Unsure 07/15/2021 8:23 AM CDT documented as of this encounter Plan of Treatment Not on file documented as of this encounter Visit Diagnoses Not on filedocumented in this encounter Additional Health Concerns Assessment Noted Time PHQ-9 Depression Total Score: 0 09/28/19 21 10:00 AM CDT documented as of this encounter Care Teams Acetylene Gas Compressor Relationship Specialty Start Date End Date Armen Gordon MD [address] [place] [address] PCP - General Internal Medicine 06/12/19 documented as of this encounter
--- OUTSIDE RECORDS SUMMARY | 2024-04-20 03:37 | XMS_ITS | Encounter Summary ---
Author Organization [facility] Care Team Providers Care Gas Charger Name Role Phone Armen Gordon MD Primary Care Provider [phone]- [phone] Encounter Details Date Type Department Care Team (Latest Contact Info) Description 12/30/2021 Travel Social History Tobacco Use Types Packs/Day [...] on file Legal Sex Female 4:01 PM RN SPINE Gender Identity Not on file Sexual Orientation Not on file COVID-19 Exposure Response Date Recorded In the last 10 days, have yo u been in contact with someone who was confirmed or suspected to have Coronavirus/COVID-19? No / Unsure 12/30/2021 2:55 PM CDT documented as of this encounter Plan of Treatment Not on file documented as of this encounter Visit Diagnoses Not on filedocumented in this encounter Additional Health Concerns Assessment Noted Time PHQ-9 Depression Total Score: 0 09/28/19 21 10:00 AM CDT documented as of this encounter Care Teams Gas Charger Relationship Specialty Start Date End Date Armen Gordon MD [address] [place] [address] PCP - General Internal Medicine 06/12/19 documented as of this encounter
--- OUTSIDE RECORDS SUMMARY | 2024-04-20 03:37 | XMS_ITS | Encounter Summary ---
Author Organization [facility] Address [address] [place] [address] Phone Care Team Providers Care Maint Mechanic Name Role Phone Armen Gordon MD Primary Care Provider Encounter Details Date Type Department Care Team (Late st Contact Info) Description 12/20/2020 Telephone [facility] - Internal Medicine - [place] [address] [place] [address] Armen Gordon MD [address] [facility] [place] [address] Social History Tobacco Use Types [...] on file Legal Sex Female 4:01 PM STAVE HEWER Gender Identity Not on file Sexual Orientation Not on file documented as of this encounter Miscellaneous Notes * Telephone Encounter - Armen Gordon MD - 12/20/2020 1:42 PM CDT Permethrin rx sent for head lice documented in this encounter Plan of Treatment Not on file documented as of this encounter Visit Diagnoses Not on filedocumented in this encounter Additional Health Concerns Assessment Noted Time PHQ-9 Depression Total Score: 0 09/28/19 21 10:00 AM CDT documented as of this encounter Care Teams Maint Mechanic Relationship Specialty Start Date End Date Armen Gordon MD [address] [place] [address] PCP - General Internal Medicine 06/12/19 documented as of this encounter
--- OUTSIDE RECORDS SUMMARY | 2024-04-20 03:37 | XMS_ITS | Encounter Summary ---
Author Organization [facility] Address [address] [place] [address] Phone Care Team Providers Care Order Processor Name Role Phone Armen Gordon MD Primary Care Provider [phone]- [phone] Reason for Visit * Reason Comments Preventive Care annual Encounter Details Date Type Department Care Team (Late st Contact Info) Description 03/29/2020 2:45 PM INVOICE CLASSIFICATION CLERK Office Visit [facility] - Internal Medicine [facility] [address] [facility] [place] [address] Armen Gordon MD [address] [place] [address] Essential hypertension, benign (Primary Dx); Undifferentiated schizophrenia (HCC); 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); Other specified hypothyroidism Discharge Disposition: Discharged to home or Selfcare Social History Tobacco Use Types Packs/Day Years Used Date Smoking Tobacco: Never Smokeless Tobacco: Never PHQ-2 Answer Date Recorded Total Score - Questions 1-9 0 03/20 Comments No Sex and Gender Information Value Date Recorded Sex Assigned at Not on file Legal Sex Female 4:01 PM INVOICE CLASSIFICATION CLERK Gender Identity Not on file Sexual Orientation Not on file COVID-19 Exposure Response Date Recorded In the last month, have you been in contact with someone who was confirmed or suspected to have Coronavirus / COVID-19? No / Unsure 03/29/2020 2:43 PM INVOICE CLASSIFICATION CLERK documented as of this encounter Last Filed Vital Signs Vital Sign Reading Time Taken Comments Blood Pressure 104/62 03/29/2020 2:55 PM INVOICE CLASSIFICATION CLERK Pulse 68 03/29/2020 2:55 PM INVOICE CLASSIFICATION CLERK Temperature 37.1 ??C (98.7 ??F) 03/29/2020 2:55 PM CS T Respiratory Rate - - Oxygen Saturation - - Inhaled Oxygen Concentration - - Weight 53.5 kg (118 lb) 03/29/2020 2:55 PM INVOICE CLASSIFICATION CLERK Height 149.9 cm (4' 11 ) 03/29/2020 2:55 PM INVOICE CLASSIFICATION CLERK Body Mass Index 23.83 03/29/2020 2:55 PM INVOICE CLASSIFICATION CLERK documented in this encounter Progress Notes * Migdalia Dominguez CMA - 03/29/2020 2:45 PM CST Lita Colbert, 49 y.o., female is here for Preventive Care (annual) Medication Refills: Patient reports/denies need for medication refills. Orders Pended: no Requested Prescriptions No prescriptions requested or ordered in this encounter Home Medications Medication Sig Start Date End Date Taking? Authorizing Provider amLODIPine (NORVASC) 5 MG Tablet 03/20/20 Yes Provider, MD Preston Dasetta 0.5/0.75/1-35 MG-MCG Tablet 03/22/20 Yes ProviderPreston MD Fanapt 4 MG Tablet 03/12/20 Yes ProviderPreston MD levothyroxine (SYNTHROID) 25 MCG Tablet 03/20/20 Yes ProviderPreston MD OXcarbazepine (TRILEPTAL) 600 MG Tablet 03/20/20 Yes ProviderPreston MD Vimpat 50 MG Tablet 03/12/20 Yes Provider, MD Preston There are no discontinued medications. I have reviewed the home medication list with the patient and have reconciled discrepancies. The list is accurate to the best of my knowledge. Smoking Status: Social History Tobacco Use ??? Smoking status: Never Smoker ??? Smokeless tobacco: Never Used Substance Use Topics ??? Alcohol use: Not on file ??? Drug use: Not on file Smoking Cessation Counseling Given: no Health Care Maintenance: Health Maintenance Due Topic Date Due ??? Pap Smear 1993 ??? Discussion re Starting/Frequency of Mammograms 2012 ??? DTaP/Tdap/Td Immunization (3 - Td) 02/15/2014 Orders Pended: no The following BPA's have been addressed with the patient today: Smoking and Depression ICE CLASSIFICATION CLERK * Armen Gordon MD - 03/29/2020 2:45 PM CST PROGRESS NOTE [facility] - INTERNAL MEDICINE [address] [place] [address] 03/29/2020 Lita Colbert 1970 Chief Complaint Patient presents with ??? Preventive Care annual Patient is here for follow-up for hypertension and annual physical. Patient lives in a senior living. Patient is feeling well. She is here with caregiver. Denies any chest pain, palpitation, or shortness of breath. No recent seizure activities. Also being followed by psychiatrist and neurologist. ROS Review of Systems Constitutional: Negative. HENT: Negative. Eyes: Negative. Respiratory: Negative. Cardiovascular: Negative. Gastrointestinal: Negative. Endocrine: Negative. Genitourinary: Negative. Musculoskeletal: Negative. Skin: Negative. Allergic/Immunologic: Negative. Neurological: Negative. Hematological: Negative. Psychiatric/Behavioral: Negative. PHYSICAL EXAM Physical Exam Vitals signs and nursing note reviewed. Constitutional: Appearance: Normal appearance. HENT: Head: Normocephalic. Mouth/Throat: Mouth: Mucous membranes are moist. Pharynx: Oropharynx is clear. Eyes: Extraocular Movements: Extraocular movements intact. Conjunctiva/sclera: Conjunctivae normal. Pupils: Pupils are equal, round, and reactive to light. Neck: Musculoskeletal: Normal range of motion and neck supple. Cardiovascular: Rate and Rhythm: Normal rate and regular rhythm. Pulses: Normal pulses. Heart sounds: Normal heart sounds. Pulmonary: Effort: Pulmonary effort is normal. Breath sounds: Normal breath sounds. Abdominal: General: Abdomen is flat. Bowel sounds are normal. Palpations: Abdomen is soft. Musculoskeletal: Normal range of motion. Skin: General: Skin is warm and dry. Neurological: General: No focal deficit present. Mental Status: She is alert and oriented to person, place, and time. Psychiatric: Mood and Affect: Mood normal. Behavior: Behavior normal. Patient is ambulatory. Repeat blood pressure is 98/60. Past medical, surgical, social and family history has been reviewed and updated as necessary. Medications and allergies has been reviewed and updated. Allergies Allergen Reactions ??? [place] Unknown Patient Active Problem List Diagnosis Date Noted ??? Essential hypertension, benign 03/03/2019 ??? Hypothyroidism 03/03/2019 ??? 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) 03/03/2019 ??? Undifferentiated schizophrenia (HCC) 03/03/2019 Current Outpatient Medications: ??? amLODIPine (NORVASC) 2.5 MG Tablet ??? Dasetta 0.5/0.75/1-35 MG-MCG Tablet ??? Fanapt 4 MG Tablet ??? levothyroxine (SYNTHROID) 25 MCG Tablet ??? OXcarbazepine (TRILEPTAL) 600 MG Tablet ??? Vimpat 50 MG Tablet Assessment ASSESSMENT & PLAN: Return in about 6 months (around 09/27/2020) for htn. 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 Will decrease amlodipine to 2.5 mg daily due to low blood pressure. Continue other medications. Continue follow-up with neurologist and psychiatrist. Check labs. Follow-up in 6 months, sooner if needed. Physical forms completed. I educated Lita regarding diagnoses and plan of care. She verbalizes understanding and will call theoffice if situation changes. Voice recognition software was utilized in this dictation. Despite proof reading, typographical errors and/or content errors may have occurred. By: Armen Gordon MD 03/29/2020 3:21 PM INVOICE CLASSIFICATION CLERK ICE CLASSIFICATION CLERK documented in this encounter Plan of Treatment Scheduled Orders Name Type Priority Associated Diagnoses Orde r Schedule CMP (COMPREHENSIVE METABOLIC PANEL) Lab Routine Essential hypertension, benign Expected: 03/29/2020, Expires: 09/27/2020 LIPID PANEL Lab Routine Essential hypertension, benign Expected: 03/29/2020, Expires: 09/27/2020 THYROID STIMULATING HORMONE (TSH) Lab Routine Other specified hypothyroidism Expected: 03/29/2020, Expires: 09/27/2020 THYROXINE (T4) FREE Lab Routine Other specified hypothyroidism Expected: 03/29/2020, Expires: 09/27/2020 documented as of this encounter Visit Diagnoses Diagnosis Essential hypertension, benign- Primary Undifferentiated schizophrenia (HCC) Unspecified schizophrenia, unspecified condition 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
--- OUTSIDE RECORDS SUMMARY | 2024-04-20 03:37 | XMS_ITS | Encounter Summary ---
Author Organization [facility] Address [address] [place] [address] Phone Care Team Providers Care Speeder Worker Name Role Phone Armen Gordon MD Primary Care Provider Reason for Visit * Reason Comments Preventive Care Encounter Details Date Type Department Care Team (Late st Contact Info) Description 07/19/2021 10:30 AM CDT Office Visit [facility] - Internal Medicine [place] [address] [place] [address] Armen Gordon MD [address] [place] [address] Contusion of scalp, sequela (Primary Dx); Undifferentiated schizophrenia (HCC); 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 No / Unsure 07/19/2021 9:24 AM CDT documented as of this encounter Last Filed Vital Signs Vital Sign Reading Time Taken Comments Blood Pressure 112/68 07/19/2021 9:35 AM CDT Pulse 76 07/19/2021 9:35 AM CDT Temperature 36.7 ??C (98.1 ??F) 07/19/2021 9:35 AM CD T Respiratory Rate - - Oxygen Saturation 98% 07/19/2021 9:35 AM CDT Inhaled Oxygen Concentration - - Weight 55.8 kg (123 lb) 07/19/2021 9:35 AM CDT Height 149.9 cm (4' 11 ) 07/19/2021 9:35 AM CDT Body Mass Index 24.84 07/19/2021 9:35 AM CDT documented in this encounter Progress Notes * Migdalia Dominguez, DYE PADDER OPERATOR - 07/19/2021 10:30 AM CDT Lita Mi Colbert, 50 y.o., female is here for Preventive Care Medication Refills: Patient reports/denies need for medication refills. Orders Pended: no Requested Prescriptions No prescriptions requested or ordered in this encounter Home Medications Medication Sig Start Date End Date Taking? Authorizing Provider amLODIPine (NORVASC) 2.5 MG Tablet Take 1 Tab by mouth daily. 03/29/20 Yes Armen Gordon MD Cholecalciferol (VITAMIN D-3 PO) Take by mouth. Yes ProviderPreston MD Dasetta 0.5/0.75/1-35 MG-MCG Tablet 03/22/20 Yes Preston Ordoñez MD Fanapt 4 MG Tablet 03/12/20 Yes Preston Ordoñez MD folic acid (FOLVITE) 1 MG Tablet Take 1 mg by mouth daily. Yes Preston Ordoñez MD levothyroxine (SYNTHROID) 25 MCG Tablet 03/20/20 Yes Preston Ordoñez MD OXcarbazepine (TRILEPTAL) 600 MG Tablet 03/20/20 Yes Preston Ordoñez MD Vimpat 50 MG Tablet 200 mg 2 times daily. 03/12/20 Yes Preston Ordoñez MD There are no discontinued medications. I have reviewed the home medication list with the patient and adult child and have reconciled discrepancies. The list is accurate to the best of my knowledge. Smoking Status: Social History Tobacco Use ??? Smoking status: Never Smoker ??? Smokeless tobacco: Never Used Vaping Use ??? Vaping Use: Never used Substance Use Topics ??? Alcohol use: Never ??? Drug use: Never Smoking Cessation Counseling Given: no Health Care Maintenance: Health Maintenance Due Topic Date Due ??? DTaP/Tdap/Td Immunization (3 - Td or Tdap) 02/15/2014 Orders Pended: no The following BPA's have been addressed with the patient today: Smoking and Depression * Armen Gordon MD - 07/19/2021 10:30 AM CDT PROGRESS NOTE [facility] - INTERNAL MEDICINE [address] [place] [address] PHONE: [phone] FAX: [phone] 07/19/2021 NAME: Lita Colbert, : 1970, Assessment ASSESSMENT & PLAN: No follow-ups on file. Diagnoses and all orders for this visit: Contusion of scalp, sequela Comments: Will remove stitches from left forehead next week Undifferentiated schizophrenia (HCC) Comments: Stable. 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 Chief Complaint Patient presents with ??? Preventive Care HPI Patient is here for follow-up from recent head injury following epilepsy. Patient had a fall due toepilepsy on Thursday. Sustained laceration just above the left eyebrow. Patient required stitches at ER. Here for follow-up. Patient is doing well. Denies any headache. Being followed by neurologist for epilepsy. Here with senior living staff. ROS Review of systems was negative, except as documented in HPI PHYSICAL EXAM VITALS: Wt Readings from Last 3 Encounters: 07/19/21 123 lb (55.8 kg) 07/15/21 120 lb (54.4 kg) 03/08/21 120 lb (54.4 kg) Temp Readings from Last 3 Encounters: 07/19/21 98.1 ??F (36.7 ??C) (Temporal) 07/15/21 96.5 ??F (35.8 ??C) (Tympanic) 03/08/21 97.7 ??F (36.5 ??C) (Temporal) BP Readings from Last 3 Encounters: 07/19/21 112/68 07/15/21 126/82 03/08/21 110/68 Pulse Readings from Last 3 Encounters: 07/19/21 76 07/15/21 81 03/08/21 86 Physical Exam Vitals and nursing note reviewed. [...] deficit present. Mental Status: She is alert. Psychiatric: Mood and Affect: Mood normal. Behavior: Behavior normal. About 1-1/2 inch long stitch laceration just above left eyebrow present. Wound is healing well. Patient has ecchymosis in the left maxillary area. Patient is ambulatory. Past medical, surgical, social and family history has been reviewed and updated as necessary. Medications and allergies has been reviewed and updated. Allergies Allergen Reactions ??? [place] Unknown Current Outpatient Medications: ??? amLODIPine (NORVASC) [...] may have occurred. 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
--- OUTSIDE RECORDS SUMMARY | 2024-04-20 03:37 | XMS_ITS | Encounter Summary ---
Author Organization [facility] Care Team Providers Care Plug Drill Operator Name Role Phone Armen Gordon MD Primary Care Provider [phone]- [phone] Encounter Details Date Type Department Care Team (Latest Contact Info) Description 09/27/2020 Travel Social History Tobacco Use Types Packs/Day [...] on file Legal Sex Female 4:01 PM BAGGAGE SECURITY CHECKER Gender Identity Not on file Sexual Orientation Not on file COVID-19 Exposure Response Date Recorded In the last month, have you been in contact with someone who was confirmed or suspected to have Coronavirus / COVID-19? No / Unsure 09/27/2020 9:56 AM CDT documented as of this encounter Plan of Treatment Not on file documented as of this encounter Visit Diagnoses Not on filedocumented in this encounter Additional Health Concerns Assessment Noted Time PHQ-9 Depression Total Score: 0 09/28/19 21 10:00 AM CDT documented as of this encounter Care Teams Plug Drill Operator Relationship Specialty Start Date End Date Armen Gordon MD [address] [place] [address] PCP - General Internal Medicine 06/12/19 documented as of this encounter
--- OUTSIDE RECORDS SUMMARY | 2024-04-20 03:37 | XMS_ITS | Encounter Summary ---
Author Organization [facility] Address [address] [place] [address] Phone Care Team Providers Care Materials Recycler Name Role Phone Armen Gordon MD Primary Care Provider [phone] Reason for Visit * Reason Comments Suture Removal Encounter Details Date Type Department Care Team (Late st Contact Info) Description 07/23/2021 3:00 PM CDT Office Visit [facility] - Internal Medicine [facility] [address] [place] [address] Armen Gordon MD [address] [place] [address] Laceration of forehead, sequela (Primary Dx) Discharge Disposition: Discharged to home or Selfcare Social History Tobacco Use Types Packs/Day Years Used Date Smoking Tobacco: Never Smokeless Tobacco: Never Alcohol Use Standard Drinks/Week Comments Never 0 (1 standard drink = 0.6 oz pur e alcohol) PHQ-2 Answer Date Recorded Total Score - Questions 1-9 0 04/2021 Sexually Active Control Partners Comments Never Comments No Sex and Gender Information Value Date Recorded Sex Assigned at Not on file Legal Sex Female 4:01 PM INTRAOPERATIVE NEURO TECH Gender Identity Not on file Sexual Orientation Not on file COVID-19 Exposure Response Date Recorded In the last 10 days, have yo u been in contact with someone who was confirmed or suspected to have Coronavirus/COVID-19? No / Unsure 07/23/2021 2:18 PM CDT documented as of this encounter Last Filed Vital Signs Vital Sign Reading Time Taken Comments Blood Pressure 114/66 07/23/2021 2:21 PM CDT Pulse 68 07/23/2021 2:21 PM CDT Temperature 36.8 ??C (98.2 ??F) 07/23/2021 2:21 PM CD T Respiratory Rate - - Oxygen Saturation 98% 07/23/2021 2:21 PM CDT Inhaled Oxygen Concentration - - Weight 55.3 kg (122 lb) 07/23/2021 2:21 PM CDT Height 149.9 cm (4' 11 ) 07/23/2021 2:21 PM CDT Body Mass Index 24.64 07/23/2021 2:21 PM CDT documented in this encounter Progress Notes * Migdalia Dominguez, ORTHOPAEDIC DOCTOR - 07/23/2021 3:00 PM CDT Lita Colbert, 50 y.o., female is here for Suture Removal Medication Refills: Patient reports/denies need for medication [...] today: Smoking * Armen Gordon MD - 07/23/2021 3:00 PM CDT PROGRESS NOTE [facility] - INTERNAL MEDICINE [address] [place] [address] PHONE: [phone] FAX: [phone] 07/23/2021 NAME: Lita Colbert, : 1970, Assessment ASSESSMENT & PLAN: No follow-ups on file. Diagnoses and all orders for this visit: Laceration of forehead, sequela Comments: Stitches removed Follow-up as needed Chief Complaint Patient presents with ??? Suture Removal HPI Patient is here for removal of stitches from forehead. She sustained laceration after she had seizures about 10 days ago. Patient is feeling well. No headache. ROS Review of systems was negative, except as documented in HPI PHYSICAL EXAM VITALS: Wt Readings from Last 3 Encounters: 07/23/21 122 lb (55.3 kg) 07/19/21 123 lb (55.8 kg) 07/15/21 120 lb (54.4 kg) Temp Readings from Last 3 Encounters: 07/23/21 98.2 ??F (36.8 ??C) (Temporal) 07/19/21 98.1 ??F (36.7 ??C) (Temporal) 07/15/21 96.5 ??F (35.8 ??C) (Tympanic) BP Readings from Last 3 Encounters: 07/23/21 114/66 07/19/21 112/68 07/15/21 126/82 Pulse Readings from Last 3 Encounters: 07/23/21 68 07/19/21 76 07/15/21 81 Physical Exam Vitals and nursing note reviewed. HENT: Head: Normocephalic. Cardiovascular: Rate and Rhythm: Normal rate. Pulses: Normal pulses. Neurological: General: No focal deficit present. Mental Status: She is alert. Stitched laceration just above the left eyebrow present. Two stitches removed. Wound is well healed. Facility is instructed to wound area clean with soap and water. Follow-up as needed Past medical, surgical, social and family history has been reviewed and updated as necessary. Medications and allergies has been reviewed and updated. Allergies Allergen Reactions ??? [place] Unknown Current Outpatient Medications: ??? amLODIPine (NORVASC) [...] may have occurred. By: Armen Gordon MD 07/23/2021 2:39 PM CDT documented in this encounter Plan of Treatment Not on file documented as of this encounter Visit Diagnoses Diagnosis Laceration of forehead, sequela- Primary documented in this encounter Additional Health Concerns Assessment Noted Time PHQ-9 Depression Total Score: 0 09/28/19 21 10:00 AM CDT documented as of this encounter Care Teams Materials Recycler Relationship Specialty Start Date End Date Armen Gordon MD [address] [place] [address] PCP - General Internal Medicine 06/12/19 documented as of this encounter
--- OUTSIDE RECORDS SUMMARY | 2024-04-20 03:37 | XMS_ITS ---
Author Organization [facility] Address [address] [place] [address] Phone Care Team Providers Care Gasoline Service Attendant Name Role Phone Armen Gordon MD Primary Care Provider OnCall Chronic Care Management Status:Closed (Closed) Start date:09/07/2023 Enrollment reason:Identified using claims or encounter data End date:09/07/2023 Close reason:Not eligible Related social drivers of health:Intimate Partner Violence, Social Connections, Alcohol Use, Tobacco Use, Financial Resource Strain,Depression, Stress, Physical Activity, Food Insecurity, Transportation Needs, Housing Stability, Utilities Continued Care and Services Coordination
--- OUTSIDE RECORDS SUMMARY | 2024-04-20 03:37 | XMS_ITS | Encounter Summary ---
Author Organization [facility] Address [address] [facility] [place] [address] Phone Care Team Providers Care Speech Pathologist Name Role Phone Armen Gordon MD Primary Care Provider [phone] Reason for Visit * Reason Comments Follow-up 6 mo f/u Encounter Details Date Type Department Care Team (Late st Contact Info) Description 09/27/2020 10:00 AM CDT Office Visit [facility] - Internal Medicine [place] [address] [place] [address] Armen Gordon MD [address] [facility] [place] [address] Essential hypertension, benign (Primary Dx); [...] on file 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 No / Unsure 09/27/2020 9:56 AM CDT documented as of this encounter Last Filed Vital Signs Vital Sign Reading Time Taken Comments Blood Pressure 110/64 09/27/2020 10:14 AM CDT Pulse 68 09/27/2020 10:14 AM CDT Temperature 36.6 ??C (97.9 ??F) 09/27/2020 10:14 AM C DT Respiratory Rate - - Oxygen Saturation 98% 09/27/2020 10:14 AM CDT Inhaled Oxygen Concentration - - Weight 53.1 kg (117 lb) 09/27/2020 10:14 AM CDT Height 149.9 cm (4' 11 ) 09/27/2020 10:14 AM CDT Body Mass Index 23.63 09/27/2020 10:14 AM CDT documented in this encounter Progress Notes * Migdalia Dominguez, ROD P[employer]ER AND COILER - 09/27/2020 10:00 AM CDT Lita Terrazasjavonpino, 49 y.o., female is here for Follow-up (6 mo f/u) Medication Refills: Patient reports/denies need for medication [...] MG Tablet 03/12/20 Yes Preston Ordoñez MD levothyroxine (SYNTHROID) 25 MCG Tablet 03/20/20 Yes Preston Ordoñez MD OXcarbazepine (TRILEPTAL) 600 MG Tablet 03/20/20 Yes Preston Ordoñez MD Vimpat 50 MG Tablet 03/12/20 Yes Preston Ordoñez MD There are [...] Due Topic Date Due ??? Pap Smear Never done ??? Discussion re Starting/Frequency of Mammograms Never done ??? DTaP/Tdap/Td Immunization (3 - Td or Tdap) 02/15/2014 Orders Pended: no The following BPA's have been addressed with the patient today: Smoking and Depression * Armen Gordon MD - 09/27/2020 10:00 AM CDT PROGRESS NOTE [facility] - INTERNAL MEDICINE [address] [place] [address] PHONE: [phone] FAX: [phone] 09/27/2020 NAME: Lita Colbert, : 1970, Assessment ASSESSMENT & PLAN: Return in about 6 months (around 03/29/2021) for htn. Diagnoses and all orders for this visit: Essential hypertension, benign Comments: Stable. 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 Continue current medication Other orders - Cholecalciferol (VITAMIN D-3 PO); Take by mouth. Follow-up in 6 months, sooner if needed Chief Complaint Patient presents with ??? Follow-up 6 mo f/u HPI Patient is here for follow-up for hypertension other medical problems. She lives in a alf. Here with caregiver. Doing well. No recent seizure activities. Tolerating medications well. No headache or dizziness. No chest pain, palpitation, shortness of breath. ROS Review of systems was negative, except as documented in HPI PHYSICAL EXAM VITALS: Wt Readings from Last 3 Encounters: 09/27/20 117 lb (53.1 kg) 03/29/20 118 lb (53.5 kg) Temp Readings from Last 3 Encounters: 09/27/20 97.9 ??F (36.6 ??C) (Temporal) 03/29/20 98.7 ??F (37.1 ??C) (Temporal) BP Readings from Last 3 Encounters: 09/27/20 110/64 03/29/20 104/62 Pulse Readings from Last 3 Encounters: 09/27/20 68 03/29/20 68 Physical Exam Vitals and nursing note [...] General: Skin is warm and dry. Neurological: Mental Status: She is alert and oriented to person, place, and time. Psychiatric: Mood and Affect: Mood normal. Behavior: Behavior normal. Neurological is stable Past medical, surgical, social and family history has been reviewed and updated as necessary. Medications and allergies has been reviewed and updated. Allergies Allergen Reactions ??? [place] Unknown Current Outpatient Medications: ??? amLODIPine (NORVASC) [...] may have occurred. By: Armen Gordon MD 09/27/2020 11:31 AM CDT documented in this encounter Plan [...] documented as of this encounter Care Teams Speech Pathologist Relationship Specialty Start Date End Date Armen Gordon MD [address] [place] [address] PCP - General Internal Medicine 06/12/19 documented as of this encounter
--- OUTSIDE RECORDS SUMMARY | 2024-04-20 03:37 | XMS_ITS | Encounter Summary ---
Author Organization [facility] Address [address] [place] [address] Phone Care Team Providers Care Software Support Analyst Name Role Phone Armen Gordon MD Primary Care Provider Reason for Visit * Reason Comments Seizure last night Encounter Details Date Type Department Care Team (Late st Contact Info) Description 03/08/2021 11:15 AM COGNOS ANALYST Office Visit 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 No / Unsure 03/08/2021 11:23 AM COGNOS ANALYST documented as of this encounter Last Filed Vital Signs Vital Sign Reading Time Taken Comments Blood Pressure 110/68 03/08/2021 11:56 AM COGNOS ANALYST Pulse 86 03/08/2021 11:56 AM COGNOS ANALYST Temperature 36.5 ??C (97.7 ??F) 03/08/2021 11:[address] Respiratory Rate - - Oxygen Saturation 99% 03/08/2021 11:56 AM COGNOS ANALYST Inhaled Oxygen Concentration - - Weight 54.4 kg (120 lb) 03/08/2021 11:56 AM COGNOS ANALYST Height 149.9 cm (4' 11 ) 03/08/2021 11:56 AM COGNOS ANALYST Body Mass Index 24.24 03/08/2021 11:56 AM COGNOS ANALYST documented in this encounter Progress Notes * Migdalia Dominguez, [facility] - 03/08/2021 11:15 AM CST Lita Colbert, 50 y.o., female is here for Seizure (last night) Medication Refills: Patient reports/denies need for medication [...] MD [place] 0.5/0.75/1-35 MG-MCG Tablet 03/22/20 Yes ProviderPreston MD Fanapt 4 MG Tablet 03/12/20 Yes Preston Ordoñez MD folic acid (FOLVITE) 1 MG Tablet Take 1 mg by mouth daily. Yes Preston Ordoñez MD levothyroxine (SYNTHROID) 25 MCG Tablet 03/20/20 Yes Preston Ordoñez MD OXcarbazepine (TRILEPTAL) 600 MG Tablet 03/20/20 Yes ProviderPreston MD Vimpat 50 MG Tablet 200 mg [...] (3 - Td or Tdap) 02/15/2014 ??? Influenza Immunization (1) 12/19/2020 Orders Pended: no The following BPA's have been addressed with the patient today: Smoking [facility] A[facility]ST * Armen Gordon MD - 03/08/2021 11:15 AM CST PROGRESS NOTE [facility] - [facility] [address] [place] [address] PHONE: [phone] FAX: [phone] 03/08/2021 NAME: Lita Colbert, : 1970, Assessment ASSESSMENT & PLAN: No follow-ups on file. 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 Other orders - folic acid (FOLVITE) 1 MG Tablet; Take 1 mg by mouth daily. Follow-up as needed Chief Complaint Patient presents with ??? Seizure last night HPI Patient is here for follow-up for seizure disorder. Patient received other residents medication yesterday evening. Her medications were placed on hold. Subsequently during nighttime she had minor episodes of seizure activities x2. This morning she is doing well. No headache or dizziness. No nausea vomiting. She is at her baseline level. Patient received accidentally omeprazole 20 mg docusate 100 mg famotidine 20 mg Lamictal 50mg, divalproex 500 mg and melatonin 5 mg ROS Review of systems was negative, except as documented in HPI PHYSICAL EXAM VITALS: Wt Readings from Last 3 Encounters: 03/08/21 120 lb (54.4 kg) 09/27/20 117 lb (53.1 kg) 03/29/20 118 lb (53.5 kg) Temp Readings from Last 3 Encounters: 03/08/21 97.7 ??F (36.5 ??C) (Temporal) 09/27/20 97.9 ??F (36.6 ??C) (Temporal) 03/29/20 98.7 ??F (37.1 ??C) (Temporal) BP Readings from Last 3 Encounters: 03/08/21 110/68 09/27/20 110/64 03/29/20 104/62 Pulse Readings from Last 3 Encounters: 03/08/21 86 09/27/20 68 03/29/20 68 Physical Exam Vitals [...] reviewed and updated. Allergies Allergen Reactions ??? [place] Unknown Current Outpatient Medications: ??? amLODIPine (NORVASC) [...] may have occurred. 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
--- OUTSIDE RECORDS SUMMARY | 2024-04-20 03:37 | XMS_ITS | Encounter Summary ---
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 No / Unsure 07/15/2021 8:23 AM CDT documented as of this encounter Last Filed Vital Signs Vital Sign Reading Time Taken Comments Blood Pressure 126/82 07/15/2021 9:35 AM CDT Pulse 81 07/15/2021 9:35 AM CDT Temperature 35.8 ??C (96.5 ??F) 07/15/2021 8:27 AM CD T Respiratory Rate 24 07/15/2021 9:35 AM CDT Oxygen Saturation 99% 07/15/2021 9:35 AM CDT Inhaled Oxygen Concentration - - Weight 54.4 kg (120 lb) 07/15/2021 8:27 AM CDT Height 149.9 cm (4' 11 ) 07/15/2021 8:27 AM CDT Body Mass Index 24.24 07/15/2021 8:27 AM CDT documented in this encounter Discharge Instructions * Discharge Instructions* Lazaro Mendoza MD - 07/15/2021 9:30 AM CDT Sutures should be removed in 7-10 days. Monitor site for sinus infection which include redness, warmth, swelling, increased pain, or purulent drainage. * Attachments The following attachments cannot be sent through Care Everywhere. * Laceration Care Adult (Welsh) documented in this encounter Medications at Time of Discharge amLODIPine (NORVASC) 2.5 MG Tablet Take 1 Tab by mouth daily. 30 Tab 5 03/29/2020 Cholecalciferol (VITAMIN D-3 PO) Take by mouth. Das[place] 0.5/0.75/1-35 MG-MCG Tablet 03/22/2020 Fanapt 4 MG Tablet 03/12/2020 folic acid (FOLVITE) 1 MG Tablet Take 1 mg by mouth daily. levothyroxine (SYNTHROID) 25 MCG Tablet 03/20/2020 OXcarbazepine (TRILEPTAL) 600 MG Tablet 03/20/2020 Vimpat 50 MG Tablet 200 mg 2 times daily. 03/12/2020 documented as of this encounter ED Notes * Zohreh Horowitz RN - 07/15/2021 9:40 AM CDT Patients wound dressed per provider orders. Patients caregiver verbalized understanding of dc instructions. No further needs noted, patient ambulatory out of ED with steady gait. Assessments unchanged. * Lazaro Mendoza MD - 07/15/2021 8:50 AM CDTAssociated Order(s): Laceration Repair Chief Complaint Patient presents with ??? Seizure ??? Laceration The patient is a 50-year-old female resident of a nursing home who presents to the emergency department accompanied by 2 caregivers after having an unwitnessed seizure. The patient is normally shaky after her seizures and this is how she is presenting to them. Staff reports that her behavior is at baseline currently. The patient suffered a laceration to the left eyebrow approximately 3-4 cm in length. Her last tetanus booster was 2013.. The patient is without complaints. Current Facility-Administered Medications Medication Dose Route Frequency Provider Last Rate Last Admin ??? lidocaine-EPINEPHrine 1 %-1:071728 injection 5 mL 5 mL Injection Once Lazaro Mendoza MD Current Outpatient Medications Medication Sig Dispense Refill ??? amLODIPine (NORVASC) 2.5 MG Tablet Take 1 Tab by mouth daily. 30 Tab 5 ??? Cholecalciferol (VITAMIN D-3 PO) Take by mouth. ??? Dasetta 0.5/0.75/1-35 MG-MCG Tablet ??? Fanapt 4 MG Tablet ??? folic acid (FOLVITE) 1 MG Tablet Take 1 mg by mouth daily. ??? levothyroxine (SYNTHROID) 25 MCG Tablet ??? OXcarbazepine (TRILEPTAL) 600 MG Tablet ??? Vimpat 50 MG Tablet 200 mg 2 times daily. Allergies Allergen Reactions ??? [place] Unknown Past Medical History Positives Diagnosis Date ??? Hypertension ??? Hypothyroid ??? Seizures (HCC) No past surgical history on file. Social History Socioeconomic History ??? Marital status: Single Spouse name: Not on file ??? Number of children: Not on file ??? Years of education: Not on file ??? Highest education level: Not on file Occupational History ??? Not on file Tobacco Use ??? Smoking status: Never Smoker ??? Smokeless tobacco: Never Used Vaping Use ??? Vaping Use: Never used Substance and Sexual Activity ??? Alcohol use: Never ??? Drug use: Never ??? Sexual activity: Never Other Topics Concern ??? Not on file Social History Narrative ??? Not on file BP 141/89 Pulse 86 Temp 96.5 ??F (35.8 ??C) (Tympanic) Resp 20 Ht 4' 11 (1.499 m) Wt 120lb (54.4 kg) SpO2 100% BMI 24.24 kg/m?? Review of Systems Skin: Positive for wound. Neurological: Positive for seizures. All other systems reviewed and are negative. Physical Exam Vitals and nursing note reviewed. Constitutional: General: She is not in acute distress. Appearance: She is normal weight. HENT: Head: Normocephalic. Comments: 3 cm laceration left eyebrow Right Ear: External ear normal. Left Ear: External ear normal. Nose: Nose normal. Eyes: Extraocular Movements: Extraocular movements intact. Conjunctiva/sclera: Conjunctivae normal. Pupils: Pupils are equal, round, and reactive to light. Cardiovascular: Rate and Rhythm: Normal rate and regular rhythm. Heart sounds: Normal heart sounds. No murmur heard. Pulmonary: Effort: Pulmonary effort is normal. No respiratory distress. Breath sounds: Normal breath sounds. No wheezing or rales. Abdominal: General: There is no distension. Palpations: Abdomen is soft. Tenderness: There is no abdominal tenderness. Musculoskeletal: General: Normal range of motion. Cervical back: Normal range of motion and neck supple. Right lower leg: No edema. Left lower leg: No edema. Skin: General: Skin is warm and dry. Findings: Lesion (Laceration left eyebrow) present. Neurological: General: No focal deficit present. Mental Status: She is alert. Mental status is at baseline. Psychiatric: Mood and Affect: Mood normal. Behavior: Behavior normal. Laceration Repair Performed by: Lazaro Mendoza MD Authorized by: Lazaro Mendoza MD Consent: The procedure was performed in an emergent situation. Verbal consent obtained. Risks and benefits: risks, benefits and alternatives were discussed Consent given by: patient Patient understanding: patient states understanding of the procedure being performed Patient consent: the patient's understanding of the procedure matches consent given Patient identity confirmed: verbally with patient and arm band Time out: Immediately prior to procedure a time out was called to verify the correct patient, procedure, equipment, product support sales representative and site/side marked as required. Body area: head/neck Location details: left eyebrow Laceration length: 3 cm Foreign bodies: no foreign bodies Tendon involvement: none Nerve involvement: none Vascular damage: no Anesthesia: local infiltration Anesthesia: Local Anesthetic: lidocaine 1% with epinephrine Anesthetic total: 4 mL Sedation: Patient sedated: no Preparation: Patient was prepped and draped in the usual sterile fashion. Irrigation solution: saline Irrigation method: syringe Amount of cleaning: standard Debridement: none Degree of undermining: none Skin closure: 4-0 nylon Number of sutures: 5 Technique: simple Approximation: close Approximation difficulty: simple Dressing: antibiotic ointment Patient tolerance: patient tolerated the procedure well with no immediate complications Imaging Results None Labs Reviewed CMP (COMPREHENSIVE METABOLIC PANEL) - Abnormal; Notable for the following components: Result Value SODIUM 133 (*) CHLORIDE 99 (*) GLUCOSE 103 (*) BUN 21 (*) CREATININE, BLOOD 1.16 (*) GFR, EST. NONAFRICAN 50 (*) All other components within normal limits COMPLETE BLOOD COUNT (CBC) WITH DIFF Narrative: The following orders were created for panel order Complete Blood Count (CBC) WITH Diff. Procedure Abnormality Status --------- ------ CBC with Auto Differential[[id number]] Final result Please view results for these tests on the individual orders. TRILEPTAL, SERUM, [facility] CBC WITH AUTO DIFFERENTIAL [facility] Coding Clinical Impression 1. Seizure (HCC) 2. Eyebrow laceration, left, initial encounter 3. Undifferentiated schizophrenia (HCC) The patient remained stable throughout their ED stay. My clinical impression was discussed with thepatient/care. Lab results were reviewed with them. I gave them the opportunity to ask questions, and addressed them as completely as possible given the information available at present. The therapeutic plan was discussed, instructions were given and the importance of primary care follow up was stressed and encouraged. The patient/caregiver voiced understanding of the plan, indications to return, and the need for follow up. * Zohreh Horowitz RN - 07/15/2021 8:33 AM CDT Seizure pads applied to bed, staff from nursing home at bedside. * Zohreh Horowitz RN - 07/15/2021 8:28 AM CDT Patient arrives to ed from her nursing home after an unwitnessed seizure. Staff reports she is normally shaky after seizures and that's how she presents to them. They report patient is at her baseline mental status, a&o4 at this time. Large laceration to left upper eyebrow area, bleeding controlled. Unknown when her last seizure was. Patient has been taking medications as prescribed. VSS. No distress noted. documented in this encounter Plan of Treatment Not on file documented as of this encounter Procedures Procedure Name Priority Date/Time Associated Diagnosis Comments LACERATION REPAIR Routine 07/15/2021 8:5 0 AM CDT CBC WITH AUTO DIFFERENTIAL STAT 07/15/2021 8:30 AM CDT TRILEPTAL, SERUM, [facility] STAT 07/15/2021 8:30 AM CDT CMP (COMPREHENSIVE METABOLIC PANEL) STAT 07/15/2021 8:30 AM CDT COMPLETE BLOOD COUNT (CBC) WITH DIFF STAT 07/15/2021 8:30 AM CDT documented in this encounter Results * Laceration Repair (07/15/2021 8:50 AM CDT) Narrative Lazaro Mendoza MD - 07/15/2021 8:50 AM CDT Lazaro Mendoza MD ? 07/15/2021 ??9:28 AM Laceration Repair Performed by: Lazaro Mendoza MD Authorized by: Lazaro Mendoza MD Consent: The procedure was performed in an emergent situation. Verbal consent obtained. Risks and benefits: risks, benefits and alternatives were discussed Consent given by: patient Patient understanding: patient states understanding of the procedure being performed Patient consent: the patient's understanding of the procedure matches consent given Patient identity confirmed: verbally with patient and arm band Time out: Immediately prior to procedure a time out was called to verify the correct patient, procedure, equipment, product support sales representative and site/side marked as required. Body area: head/neck Location details: left eyebrow Laceration length: 3 cm Foreign bodies: no foreign bodies Tendon involvement: none Nerve involvement: none Vascular damage: no Anesthesia: local infiltration Anesthesia: Local Anesthetic: lidocaine 1% with epinephrine Anesthetic total: 4 mL Sedation: Patient sedated: no Preparation: Patient was prepped and draped in the usual sterile fashion. Irrigation solution: saline Irrigation method: syringe Amount of cleaning: standard Debridement: none Degree of undermining: none Skin closure: 4-0 nylon Number of sutures: 5 Technique: simple Approximation: close Approximation difficulty: simple Dressing: antibiotic ointment Patient tolerance: patient tolerated the procedure well with no immediate complications Lazaro Mendoza MD PROCEDURE/MINOR SURGICAL OR DERABLES Final Result * CBC with Auto Differential (07/15/2021 8:30 AM CDT) WBC 6.48 4.00 - 12.00 10(3)/mcL 07/15/2021 8:58 AM CDT [facility] RBC 4.28 3.80 - 5.30 10(6)/mcL 07/15/2021 8:58 AM CDT [facility] HEMOGLOBIN (HGB) 12.7 12.0 - 15.8 g/dL 07/15/2021 8:58 AM CDT [facility] HEMATOCRIT (HCT) 40.4 36.0 - 47.0 % 07/15/2021 8:58 AM CDT [facility] MCV 94.4 82.0 - 96.0 fL 07/15/2021 8:58 AM CDT [facility] MCH 29.7 26.0 - 34.0 pg 07/15/2021 8:58 AM CDT [facility] MCHC 31.4 31.0 - 36.0 g/dL 07/15/2021 8:58 AM CDT [facility] PLATELET COUNT 279 140 - 440 10(3)/[facility] 07/15/2021 8:58 AM CDT [facility] RDW 12.5 11.8 - 15.5 % 07/15/2021 8:58 AM CDT [facility] MPV 10.2 9.7 - 12.4 fL 07/15/2021 8:58 AM CDT [facility] NEUTROPHILS 63.3 47.0 - 73.0 % 07/15/2021 8:58 AM CDT [facility] LYMPHOCYTES 25.5 18.0 - 42.0 % 07/15/2021 8:58 AM CDT [facility] MONOCYTES 9.3 4.0 - 12.0 % 07/15/2021 8:58 AM CDT [facility] EOSINOPHILS 1.7 0.0 - 5.0 % 07/15/2021 8:58 AM CDT [facility] BASOPHILS 0.2 0.0 - 1.0 % 07/15/2021 8:58 AM CDT [facility] ABSOLUTE NEUTROPHILS 4.11 1.60 - 7.70 10(3)/mcL 07/15/2021 8:58 AM CDT [facility] ABSOLUTE LYMPHOCYTES 1.65 1.30 - 3.20 10(3)/[facility] 07/15/2021 8:58 AM CDT [facility] ABSOLUTE MONOCYTES 0.60 0.20 - 1.00 10(3)/[facility] 07/15/2021 8:58 AM CDT [facility] ABSOLUTE EOSINOPHIL 0.11 0.00 - 0.40 10(3)/[facility] 07/15/2021 8:58 AM CDT [facility] ABSOLUTE BASOPHILS 0.01 0.00 - 0.10 10(3)/[facility] 07/15/2021 8:58 AM CDT [facility] NRBC PER 100 WBC 0 07/16/19 8:58 AM CDT [facility] Blood Venipuncture / Unknown 07/15/2021 8:30 AM CDT 07/15/2021 8:51 AM CDT Lazaro Mendoza MD HEMATOLOGY ORDERABLES Final Result Performing Organization Address [facility]/ZIP Co de Phone Number [facility] [address] [place] [address] * (ABNORMAL) TRILEPTAL, SERUM, [facility] (07/15/2021 8:30 AM CDT) Pathologist [facility] OXCARBAZEPINE METABOLITE (MHC) 39(H) 10 - 35 mcg/mL 07/17/2021 9:23 AM CDT [facility] Comment: ADDITIONAL INFORMATION This test was developed and its performance characteristics determined by [facility] in a manner consistent with CLIA requirements. This test has not been cleared or approved by the U.S. Food and Drug Administration. Test Performed by: [facility] [place] [address] Convertible Sofa Bedspring Tester: Gustavo Springer M.D. Ph.D.; CLIA# [id number] Blood Venipuncture / Unknown 07/15/2021 8:30 AM CDT 07/15/2021 9:00 AM CDT Lazaro Mendoza MD LAB SEND OUTS Final Resul t [facility] [address] [place] [address], * (ABNORMAL) CMP (Comprehensive Metabolic Panel) (07/15/2021 8:30 AM CDT) Pathologist [facility] SODIUM 133(L) 136 - 144 mmol/L 07/15/2021 9:15 AM CDT [facility] POTASSIUM 3.7 3.5 - 5.1 mmol/L 07/15/2021 9:15 AM CDT [facility] CHLORIDE 99(L) 100 - 110 mmol/L 07/15/2021 9:15 AM [facility] CO2, VENOUS 25 22 - 32 mmol/L 07/15/2021 9:15 AM [facility] ANION GAP 12.7 8.0 - 20.0 mmol/L 07/15/2021 9:15 AM [facility] GLUCOSE 103(H) 70 - 99 mg/dL 07/15/2021 9:15 AM T [facility] BUN 21(H) 6 - 20 mg/dL 07/15/2021 9:15 AM [facility] CREATININE, BLOOD 1.16(H) 0.60 - 1.10 mg/dL 07/15/2021 9:15 AM [facility] BUN/CREATININE RATIO 18 12 - 20 ratio 07/15/2021 9:15 AM [facility] TOTAL PROTEIN 7.8 6.0 - 8.3 g/dL 07/15/2021 9:15 AM [facility] ALBUMIN 4.2 3.5 - 5.2 g/dL 07/15/2021 9:15 AM [facility] Comment: The colormetric methods used for the determination of Albumin may lead to falsely elevated test results in patients suffering from renal failure or insufficiency due to interference with other proteins. A/G RATIO 1.2 1.0 - 2.0 07/15/2021 9:15 AM [facility] CALCIUM 9.3 8.9 - 10.3 mg/dL 07/15/2021 9:15 AM [facility] T BILI <0.3 <=1.2 mg/dL 07/15/2021 9:15 AM [facility] SGOT (AST) 14 <=32 U/L 07/15/2021 9:15 AM [facility] SGPT (ALT) 10 <=41 U/L 07/15/2021 9:15 AM [facility] ALKALINE PHOSPHATASE 48 35 - 105 U/L 07/15/2021 9:15 AM CDT [facility] GFR, EST. NONAFRICAN 50(L) >=60 07/15/2021 9:15 AM CDT [facility] GFR, EST. 60 >=60 022 9:15 AM CDT [facility] Comment: Creatinine Clearance is the preferred criteria for selecting drug dose adjustments in renally impaired patients. ??The GFR is provided as additional pertinent clinical information. GFR is reported in mL/min/1.73 sq m. Blood Venipuncture / Unknown 07/15/2021 8:30 AM CDT 07/15/2021 8:51 AM CDT us Lazaro Mendoza MD CHEMISTRY ORDERABLES Final Result [facility] [address] [place] [address] documented in this encounter Visit Diagnoses Diagnosis Seizure (HCC)- Primary Other convulsions Eyebrow laceration, left, initial encounter Undifferentiated schizophrenia (HCC) Unspecified schizophrenia, unspecified condition documented in this encounter Administered Medications Inactive Administered Medications - up to 3 most recent administrations Medication Order MAR Action Action Date Dose Rate Site 0.9 % sodium chloride solution at 250 mL/hr, Intravenous, ONCE, 1 dose, On Thu07/15/21 at 0900 New Bag 07/15/2021 8:38 AM CDT 1,000 mL 250 mL/hr lidocaine-EPINEPHrine 1 %-1:399932 injection 5 mL 5 mL, Injection, ONCE, 1 dose, On Thu07/15/21 at 0930 Given by Other 07/15/2021 9:30 AM CDT 5 mL documented in this encounter Active and Recently Administered Medications Times are shown in CDT. Scheduled Medication Order 07/13/2021 07/14/2021 07/15/2021 0.9 % sodium chloride solution (COMPLETED) at 250 mL/hr, Intravenous, ONCE, 1 dose, On Thu07/15/21 at 0900 0838 (New Bag - Prov ider: Zohreh M McElyea, RN)0940 (Stopped - Provider: Zohreh Horowitz, RN) lidocaine-EPINEPHrine 1 %-1:583848 injection 5 mL (COMPLETED) 5 mL, Injection, ONCE, 1 dose, On Thu07/15/21 at 0930 0930 (Given by Other - Provider: Zohreh Horowitz, JITENDRA - Comment: MD Reji) documented in this encounter Additional Health Concerns Assessment Noted Time PHQ-9 Depression Total Score: 0 09/28/19 21 10:00 AM CDT documented as of this encounter Care Teams Air Transportation Provider Relationship Specialty Start Date End Date Armen Gordon MD [address] [place] [address] PCP - General Internal Medicine 06/12/19 documented as of this encounter
--- OUTSIDE RECORDS SUMMARY | 2024-04-20 03:37 | XMS_ITS | Encounter Summary ---
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
--- OUTSIDE RECORDS SUMMARY | 2024-04-20 03:37 | XMS_ITS | Encounter Summary ---
Author Organization [facility] Address [address] [place] [address] Phone Care Team Providers Care Student Accounts Coordinator Name Role Phone Armen Gordon MD Primary Care Provider [phone] Reason for Visit * Reason Onset Date Comments Labs Only 02/13/2022 Encounter Details Date Type Department Care Team (Late st Contact Info) Description 02/13/2022 Telephone [facility] - Internal Medicine - [place] [address] [place] [address] Armen Gordon MD [address] [place] [address] Labs Only Social History Tobacco Use Types Packs/Day Years [...] on file 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 Pt has [facility] appt 11-22-22 and facility nurse would like labs drawn same day, if possible. Requested: CBC - extended exp date CMP - extended exp date HbA1c - extended exp date TSH - extended exp date T4 - extended exp date Lipids - extended exp date Vitamin D - extended exp date CBC - pended for PCP review oxcarbazepine level - pended for PCP review Please review pended labs. documented in this encounter Plan of Treatment Not on file documented as of this encounter Visit Diagnoses Not on filedocumented in this encounter Additional Health Concerns Assessment Noted Time PHQ-9 Depression Total Score: 0 09/28/19 21 10:00 AM CDT documented as of this encounter Care Teams Student Accounts Coordinator Relationship Specialty Start Date End Date Armen Gordon MD [address] [place] [address] PCP - General Internal Medicine 06/12/19 documented as of this encounter
--- OUTSIDE RECORDS SUMMARY | 2024-04-20 03:37 | XMS_ITS | Encounter Summary ---
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 No / Unsure 03/29/2020 2:43 PM VERTICAL LATHE OPERATOR documented as of this encounter Plan of Treatment Not on file documented as of this encounter Visit Diagnoses Not on filedocumented in this encounter Additional Health Concerns Assessment Noted Time PHQ-9 Depression Total Score: 0 03/29/20 20 3:00 PM VERTICAL LATHE OPERATOR documented as of this encounter Care Teams Materials Research Engineer Relationship Specialty Start Date End Date Armen Gordon MD [address] [place] [address] PCP - General Internal Medicine 06/12/19 documented as of this encounter
--- OUTSIDE RECORDS SUMMARY | 2024-04-20 03:37 | XMS_ITS | Encounter Summary ---
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 printed * Telephone Encounter - Lorena Amezcua RN - 08/26/2021 8:04 AM CDT ----- Message from July Mook sent at 08/21/2021 11:16 AM CDT ----- Regarding: PATIENT MEDICAL QUESTION Eduarda rider called and asked if you will order labs for patient and the call them to schedule CMP A1C TSH T4Free Lipid Vitamin D Call back # [phone] documented in this encounter Plan of Treatment Scheduled Orders Name Type Priority Associated Diagnoses Orde r Schedule CMP (COMPREHENSIVE METABOLIC PANEL) Lab Routine Essential hypertension, benign Expected: 03/11/2022, Expires: 03/19/2022 LIPID PANEL Lab Routine Essential hypertension, benign Expected: 03/11/2022, Expires: 03/19/2022 HEMOGLOBIN A1C W/ ESTIMATED GLUCOSE Lab Routine High risk medication use Expected: 03/11/2022, Expires: 03/19/2022 THYROXINE (T4) FREE Lab Routine Other specified hypothyroidism Expected: 03/11/2022, Expires: 03/19/2022 THYROID STIMULATING HORMONE (TSH) Lab Routine Other specified hypothyroidism Expected: 03/11/2022, Expires: 03/19/2022 VITAMIN D, 25 HYDROXY TOTAL Lab Routine Vitamin D deficiency Expected: 03/11/2022, Expires: 03/19/2022 documented as of this encounter Visit Diagnoses Diagnosis Essential hypertension, benign- Primary Other specified hypothyroidism High risk medication use Encounter for long-term (current) use of other medications Vitamin D deficiency Unspecified vitamin D deficiency documented in this encounter Additional Health Concerns Assessment Noted Time PHQ-9 Depression Total Score: 0 09/28/19 21 10:00 AM CDT documented as of this encounter Care Teams General Manager In Training Relationship Specialty Start Date End Date Armen Gordon MD [address] [place] [address] PCP - General Internal Medicine 06/12/19 documented as of this encounter
--- OUTSIDE RECORDS SUMMARY | 2024-04-20 03:37 | XMS_ITS | Encounter Summary ---
Author Organization [facility] Address [address] [place] [address] Phone Care Team Providers Care Pumper Hand Name Role Phone Armen Gordon MD Primary Care Provider Reason for Visit * Reason Onset Date Comments Drug Overdose 03/07/2021 Encounter Details Date Type Department Care Team (Late st Contact Info) Description 03/07/2021 Nurse Triage [facility] [address] [place] [address] Armen Gordon MD [address] [place] [address] Drug Overdose Social History Tobacco Use Types Packs/Day Years [...] on file Legal Sex Female 4:01 PM MEMBERSHIP SALES ADVISOR Gender Identity Not on file Sexual Orientation Not on file COVID-19 Exposure Response Date Recorded In the last month, have you been in contact with someone who was confirmed or suspected to have Coronavirus / COVID-19? No / Unsure 03/08/2021 11:23 AM MEMBERSHIP SALES ADVISOR documented as of this encounter Miscellaneous Notes * Telephone Encounter - Lorena Amezcua RN - 03/08/2021 3:42 PM CST Addressed at appointment. ERSHIP SALES ADVISOR * Telephone Encounter - Armen Gordon MD - 03/08/2021 8:33 AM MEMBERSHIP SALES ADVISOR What meds pt got? ERSHIP SALES ADVISOR * Telephone Encounter - Haylee Sanon RN - 03/07/2021 8:12 PM MEMBERSHIP SALES ADVISOR SITUATION: Wrong medication given BACKGROUND: Noemi is a staff member at [facility] where patient lives. States wrong medication was given to patient and she got someone else's evening meds. ASSESSMENT: Symptom Description / Location: Denies any symptoms at this time States wrong medication was given at 7:20 pm Treatment / Response: None RECOMMENDATION: See care advice and disposition for Guideline First positive answer recorded, all responses to prior questions were negative. If symptoms increase, change or if new symptoms develop, call your HCP or call back. Recommendations were based on caller information and is not a diagnosis. Verified and reviewed all triage information with caller. Reason for Disposition ??? Took another person's prescription drug Protocols used: MEDICATION QUESTION CALL-A-ROB [place] states she talked to Poison Control and they advised that patient is fine to stay home andto just monitor and follow up with Amren Gordon MD in the morning when office opens. ERSHIP SALES ADVISOR documented in this encounter Plan of Treatment Not on file documented as of this encounter Visit Diagnoses Not on filedocumented in this encounter Additional Health Concerns Assessment Noted Time PHQ-9 Depression Total Score: 0 09/28/19 21 10:00 AM CDT documented as of this encounter Care Teams Pumper Hand Relationship Specialty Start Date End Date Armen Gordon MD [address] [place] [address] PCP - General Internal Medicine 06/12/19 documented as of this encounter
--- OUTSIDE RECORDS SUMMARY | 2024-04-20 03:37 | XMS_ITS | Encounter Summary ---
Author Organization [facility] Address [address] [place] [address] Phone Care Team Providers Care Relationship Specialist Name Role Phone Armen Gordon MD Primary Care Provider Reason for Visit * Reason Onset Date Comments Medication Management 06/19/2021 Encounter Details Date Type Department Care Team (Late st Contact Info) Description 06/19/2021 Telephone [facility] - Internal Medicine - [place] [address] [place] [address] Armen Gordon MD [address] [facility] [place] [address] Medication Management Social History Tobacco [...] on file Legal Sex Female 4:01 PM ADMISSION LIAISON Gender Identity Not on file Sexual Orientation Not on file documented as of this encounter Miscellaneous Notes * Telephone Encounter - Analisa Marroquin RN - 06/19/2021 10:50 AM CST Spoke with mickey rider about refill. States understanding to talk to neurologist for refill of Vimpat. SSION LIAISON * Telephone Encounter - Armen Gordon MD - 06/19/2021 9:47 AM ADMISSION LIAISON They need to contact her neurologist for refill of Vimpat- it is for epilepsy. SSION LIAISON * Telephone Encounter - Analisa Marroquin RN - 06/19/2021 9:34 AM CST ----- Message from July sent at 06/19/2021 8:48 AM ADMISSION LIAISON ----- Regarding: PATIENT MEDICAL QUESTION Gayle at [facility] called request refill, said patient takes 2 different Mg's of medication but could not tell me what they are Medication: Vimpat Call back # [phone] Pharmacy: [facility] [id number] - [place], [place] - [facility] [address] SSION LIAISON documented in this encounter Plan of Treatment Not on file documented as of this encounter Visit Diagnoses Not on filedocumented in this encounter Additional Health Concerns Assessment Noted Time PHQ-9 Depression Total Score: 0 09/28/19 21 10:00 AM CDT documented as of this encounter Care Teams Relationship Specialist Relationship Specialty Start Date End Date Armen Gordon MD [address] [place] [address] PCP - General Internal Medicine 06/12/19 documented as of this encounter
--- OUTSIDE RECORDS SUMMARY | 2024-04-20 03:37 | XMS_ITS | Encounter Summary ---
Author Organization [facility] Care Team Providers Care Junior Business Analyst Name Role Phone Armen Gordon MD Primary Care Provider [phone] Encounter Details Date Type Department Care Team (Latest Contact Info) Description 07/23/2021 Travel Social History Tobacco Use Types Packs/Day [...] on file Legal Sex Female 4:01 PM DIRECT CARE SUPERVISOR Gender Identity Not on file Sexual Orientation [...] documented as of this encounter Care Teams Junior Business Analyst Relationship Specialty Start Date End Date Armen Gordon MD [address] [place] [address] PCP - General Internal Medicine 06/12/19 documented as of this encounter
--- OUTSIDE RECORDS SUMMARY | 2024-04-20 03:37 | XMS_ITS | Encounter Summary ---
Author Organization [facility] Address [address] [place] [address] Phone Care Team Providers Care Membership Sales Manager Name Role Phone Armen Gordon MD Primary Care Provider [phone] Reason for Visit * Reason Onset Date Comments Results 07/17/2021 Encounter Details Date Type Department Care Team (Late st Contact Info) Description 07/17/2021 Telephone [facility] - Internal Medicine - [place] [address] [place] [address] Armen Gordon MD [address] [place] [address] Results Social History Tobacco Use [...] on file Legal Sex Female 4:01 PM SOUVENIR AND NOVELTY MAKER Gender Identity Not on file Sexual Orientation Not on file COVID-19 Exposure Response Date Recorded In the last 10 days, have yo u been in contact with someone who was confirmed or suspected to have Coronavirus/COVID-19? No / Unsure 07/15/2021 8:23 AM CDT documented as of this encounter Miscellaneous Notes * Telephone Encounter - Lorena Amezcua RN - 07/19/2021 9:14 AM CDT Called facility and inquired about her psychiatrist and they informed me Vira Elias NP was herprovider and I called them and got the fax number to send results. [phone] * Telephone Encounter - Armen Gordon MD - 07/17/2021 4:04 PM CDT They should contact her psychiatrist * Telephone Encounter - Lorena Amezcua RN - 07/17/2021 3:24 PM CDT ER seen patient on 07/15/21 and adry labs. Trileptal level came back at a 39 and they wanted to makesure that you were aware. documented in this encounter Plan of Treatment Not on file documented as of this encounter Visit Diagnoses Not on filedocumented in this encounter Additional Health Concerns Assessment Noted Time PHQ-9 Depression Total Score: 0 09/28/19 21 10:00 AM CDT documented as of this encounter Care Teams Membership Sales Manager Relationship Specialty Start Date End Date Armen [place] [address] [place] [address] PCP - General Internal Medicine 06/12/19 documented as of this encounter
--- OUTSIDE RECORDS SUMMARY | 2024-04-20 03:42 | XMS_ITS | Encounter Summary ---
Author Organization [facility] Address [address] [place] [address] Care Team Providers Care Business Administration Professor Name Role Phone No, Physician Primary Care Provider [phone] Reason for Visit * Reason Comments Annual Exam Last pap unknown Encounter Details Date Type Department Care Team (Latest Contact Info) Description 08/05/2022 1:30 PM CDT Office Visit [facility] Obstetrical Gynecology [address] [address] Orion Segura MD [facility] [address] Well woman exam without gynecological exam (Primary Dx) Social History Tobacco Use Types Packs/Day Years Used Date Smoking Tobacco: Never Passive Smoke Exposure: Never Smokeless Tobacco: Never Tobacco Cessation:Counseling Given: Not Answered Comments No Sex and Gender Information Value Date Recorded Sex Assigned at Not on file Legal Sex Female 7:48 PM DIAGNOSTIC ASSISTANT Gender Identity Not on file Sexual Orientation Not on file documented as of this encounter Last Filed Vital Signs Vital Sign Reading Time Taken Comments Blood Pressure - - Pulse - - Temperature - - Respiratory Rate - - Oxygen Saturation - - Inhaled Oxygen Concentration - - Weight 59 kg (130 lb) 08/05/2022 1:39 PM CDT Height - - Body Mass Index 29.15 12/24/2017 10:15 AM CDT documented in this encounter Progress Notes * Orion Segura MD - 08/05/2022 1:30 PM CDT DRAWING BOX TENDER Well Woman Annual Exam CC: Chief Complaint Patient presents with Annual Exam Last pap unknown Subjective: Lita Colbert is a 51 y.o. female who presents for annual exam. Pt Reports no acute concerns from pt or care given present for visit (Tonie). Pt denies - fevers, chills, nausea, vomiting, CP, SOB, decreased appetite, unintentional weight loss/gain, pelvic pain, abnormal vaginal bleeding, abnormal vaginal discharge, problems with urination,problems with bowel movements, breast changes, changes in mood, or vasomotor symptoms. STIs: denies Abnormal Pap: unknown Contraception: combination OCPs Sexual activity: not active Diet/Exercise: working on Domestic Violence: denies Menses: LMP - Menstrual History: No LMP recorded. (Menstrual status: Oral Contraception). Sexual History: OB History 0 Para 0 Term 0 0 AB 0 Living 0 SAB 0 IAB 0 Ectopic 0 Multiple 0 Live Births 0 OB History 0 Para 0 Term 0 0 AB 0 Living 0 SAB 0 IAB 0 Ectopic 0 Multiple 0 Live Births 0 Past Medical History: Diagnosis Date Anemia Articulation disorder Bipolar affective disorder (HCC) Hypertension Hypothyroidism Moderate intellectual disability Osteoporosis Partial seizure disorder (CMS/HCC) (HCC) Schizophrenia ([facility]) Vitamin D deficiency History reviewed. No pertinent surgical history. History reviewed. No pertinent family history. reports that she has never smoked. She has never been exposed to tobacco smoke. She has never used smokeless tobacco. No alcohol history on file. reports no history of drug use. Allergies Allergen Reactions [place] Hives and Unknown Sleep Medications: Current Outpatient Medications: aluminum-magnesium hydroxide-simethicone (MAALOX) suspension 200-200-20 mg/5 mL, 4 (four) times a day, Disp: , Rfl: amLODIPine (NORVASC) 2.5 mg tablet, , Disp: , Rfl: cholecalciferol, vitamin D3, (cholecalciferol, vit D3,,bulk,) 100,000 unit/gram powder, Take by mouth, Disp: , Rfl: Dasetta /10/24, 28, 0.5/0.75/1 mg- 35 mcg per tablet, , Disp: , Rfl: Fanapt 4 mg tablet, , Disp: , Rfl: folic acid (FOLVITE) 1 mg tablet, Take 1 tablet (1 mg total) by mouth daily, Disp: , Rfl: lacosamide (VIMPAT) 200 mg tablet, , Disp: , Rfl: lacosamide (VIMPAT) 50 mg tablet, , Disp: , Rfl: levothyroxine (SYNTHROID) 25 mcg tablet, , Disp: , Rfl: loratadine (CLARITIN) 10 mg tablet, Take 1 tablet (10 mg total) by mouth daily, Disp: , Rfl: multivitamin capsule, Rx: Multivitamins Capsule, Disp: , Rfl: OXcarbazepine (TRILEPTAL) 600 mg tablet, , Disp: , Rfl: Immunization History Administered Date(s) Administered Pfizer SARS-CoV-2 Vaccination (12+ yrs) PURPLE 05/16/2020, 06/06/2020, 03/21/2021 Pfizer Sars-Cov-2 Bivalent Booster Vaccination (12+ YRS) 01/29/2022 Review of Systems: 10 systems reviewed and negative, except for those mentioned in HPI. PHYSICAL EXAM: Vitals Wt 130 lb (59 kg) BMI 29.15 kg/m?? 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 female who presents for annual exam. Diagnosis Plan 1. Well woman exam without gynecological exam Wellness - Exercise, diet, vitamin recommendations reviewed Tobacco/Alcohol/Drug Use - lifestyle modification recommendations reviewed Vaccinations - recs Contraception/family planning - continue combination OCP's STI Screening - low risk, screening deferred PAP/HPV - guidelines and recommendations reviewed; PAP - pt declines pelvic exam, low risk given pthas never been sexually active and has no acute symptoms Breast Health - discussed self breast awareness; Family Hx - unknown; Mammogram - last - 11/2020 - consider q2yr Colon screening: consider cologuard at home testing fecal sample DEXA Scan - @ 60yo All patient questions answered. Follow-up: 1 year for annual, or PRN for acute concerns. Orion Segura MD documented in this encounter Plan of Treatment Not on file documented as of this encounter Visit Diagnoses Diagnosis Well woman exam without gynecological exam- Primary documented in this encounter Historical Medications * This list may reflect changes made after this encounter. loratadine (CLARITIN) 10 mg tablet Take 1 tablet (10 mg total) by mouth daily 06/23/2022 cholecalciferol, vitamin D3, (cholecalciferol , vit D3,,bulk,) 100,000 unit/gram powder Take by mouth lacosamide (VIMPAT) 50 mg tablet 07/19/2022 lacosamide (VIMPAT) 200 mg tablet 07/19/2022 OXcarbazepine (TRILEPTAL) 600 mg tablet 07/19/2022 multivitamin capsule Rx: Multivitamins Capsule levothyroxine (SYNTHROID) 25 mcg tablet 07/19/2022 folic acid (FOLVITE) 1 mg tablet Take 1 tablet (1 mg total) by mouth daily aluminum-magnesi um hydroxide-simeth icone (MAALOX) suspension 200-200-20 mg/5 mL 4 (four) times a day Fanapt 4 mg tablet 07/10/2022 amLODIPine (NORVASC) 2.5 mg tablet 07/19/2022 Dasetta , 28, 0.5/0.75/1 mg- 35 mcg per tablet 07/25/2022 added in this encounter Care Teams Business Administration Professor Relationship Specialty Start Date End Date No, Physician PCP - General 02/07/20 documented as of this encounter
--- OUTSIDE RECORDS SUMMARY | 2024-04-20 03:42 | XMS_ITS | Clinical Summary ---
Author Organization [facility] Address [address] [place] [address] Care Team Providers Care Food Service Utility Worker Name Role Phone No, Physician Primary Care Provider [phone] Allergies Active Allergy Reactions Criticality Noted Date Comments [place] Hives,Unknown Medium 03/03/2019 Sleep Medications Dasetta , 28, 0.5/0.75/1 mg- 35 mcg per tablet 3 Active amLODIPine (NORVASC) 2.5 mg tablet 3 Active Fanapt 4 mg tablet 3 Active aluminum-magne sium hydroxide-radha thicone (MAALOX) suspension 200-200-20 mg/5 mL 4 (four) times a day Active folic acid (FOLVITE) 1 mg tablet Take 1 tablet (1 mg total) by mouth daily Active levothyroxine (SYNTHROID) 25 mcg tablet 3 Active multivitamin capsule Rx: Multivitamins Capsule Active OXcarbazepine (TRILEPTAL) 600 mg tablet 3 Active lacosamide (VIMPAT) 200 mg tablet 3 Active lacosamide (VIMPAT) 50 mg tablet 3 Active cholecalcifero l, vitamin D3, (cholecalcifer ol, vit D3,,bulk,) 100,000 unit/gram powder Take by mouth Active loratadine (CLARITIN) 10 mg tablet Take 1 tablet (10 mg total) by mouth daily 3 Active Active Problems No known active problems Medical History Medical History Date Comments Moderate intellectual disability Articulation disorder Partial seizure disorder (CMS/HCC) (HCC) Hypothyroidism Bipolar affective disorder (HCC) Osteoporosis Anemia Hypertension Schizophrenia (HCC) Vitamin D deficiency Social History Tobacco Use Types Packs/Day Years Used Date Smoking Tobacco: Never Passive Smoke Exposure: Never Smokeless Tobacco: Never Tobacco Cessation:Counseling Given: Not Answered Personal Safety Answer Date Recorded Getting School Help Needed Not on file 04/05 Comments No Sex and Gender Information Value Date Recorded Sex Assigned at Not on file Legal Sex Female 7:48 PM INSOLVENCY PRACTITIONER Gender Identity Not on file Sexual Orientation Not on file Obstetrics History Para Term AB IAB SAB Ectopic Multiple Livin g Live Births 0 0 0 0 0 0 0 0 0 0 0 Last Filed Vital Signs Vital Sign Reading Time Taken Comments Blood Pressure 108/68 12/24/2017 10:15 AM CDT Pulse 0 12/21/2015 9:30 AM CDT Temperature - - Respiratory Rate - - Oxygen Saturation - - Inhaled Oxygen Concentration - - Weight 59 kg (130 lb) 08/05/2022 1:39 PM CDT Height 142.2 cm (4' 8 ) 12/24/2017 10:15 AM CDT Body Mass Index 29.15 12/24/2017 10:15 AM CDT Plan of Treatment Health Maintenance Due Date Last Done Comments Breast Cancer Screening-Mammogram 1972 Cervical Cancer Screening 1972 Colon Cancer Screening-Colonoscopy 1972 Depression Screening 1972 Hepatitis C Screening 1972 Hepatitis B Screening 1990 Zoster Vaccine (1 of 2) 2022 Regular Well Visit/Exam 18-64 08/06/2023 08/05/2022 DTaP/Tdap/Td Vaccine (2 - Td or Tdap) 08/17/2023 08/16/2013, 07/13/2002 Covid-19 Vaccine ( season) 2023 01/29/2022, 03/21/2021, 06/06/2020, Additional history exists Influenza Vaccine (#1) 2023 , 01/20/2022, 02/07/2020, Additional history exists Pneumococcal vaccine <65 Aged Out 06/19/2015 No longer eligible based on patient's age to complete this topic Insurance MEDICARE MEDICARE [facility] Care Teams Food Service Utility Worker Relationship Specialty Start Date End Date No, Physician PCP - General 02/07/20
--- OUTSIDE RECORDS SUMMARY | 2024-04-20 03:42 | XMS_ITS | Continuity of Care Document ---
Author Organization [facility] Address [address] [place] [address] Phone Care Team Providers Care Child Nutrition Assistant Name Role Phone Latoya Robles Unavailable Unavailable Procedures Procedure Date Office/outpatient Visit, Est Office/outpatient Visit, Est Eye Exam & Treatment Eye Exam & Treatment Advance Directives Directive Yes / No Effective Date File Name No Information Encounters Encounter Description Practice Location Reason(s) For Visit Diagnoses Date Provider Providers Copied on Encounter Office/outpat ient Visit, [facility], [address] [place] [address] [address], [place], [place], [id number], tel:[phone] [facility] No Information 8-201 0 Margaret Klein. [address] , [address], [place], [place], [facility], . tel:[phone] Office/outpat ient Visit, [facility], [address] [place] [address] [address], [place], [place], [id number], tel:[phone] [facility] No Information 5-200 9 Margaret Parikh [address], [address], [place], [facility], . tel:[phone] [facility], [address] [place] [address] [address], [place], [place], [id number], tel:[phone] [facility] No Information 2-200 8 Margaret Klein. [address], [place], [address], [place]. tel:[phone] [facility], [address], [place], [place], [id number], [place] tel:[phone] [facility] No Information 6[address] Margaret Klein. [address] , [address], [place], [address], [place]. tel:[phone] Family History Family Member Type Diagnosis Age At Onset No Information Payers Payer name Insurance type Covered alliance party ID Authoriza tion(s) [place] [id number] [place] [id number] Social History Type Description Quantity Date Captured [...]
--- OUTSIDE RECORDS SUMMARY | 2024-04-20 03:42 | XMS_ITS | Referral Summary ---
Author Organization [facility] Address [address] [place] [id number] Care Team Providers Care Pickle Sorter Name Role Phone No, Physician Primary Care Provider [phone] Allergies Active Allergy Reactions Criticality Noted Date Comments [place] Hives,Unknown Medium 03/03/2019 Sleep Medications Dasetta , [...] Active Active Problems No known active problems Social History Tobacco Use Types Packs/Day Years Used Date Smoking Tobacco: Never Passive Smoke Exposure: Never Smokeless Tobacco: Never Tobacco Cessation:Counseling Given: Not Answered Personal Safety Answer Date Recorded Getting School Help Needed Not on file 04/05 Comments No Sex and Gender Information Value Date Recorded Sex Assigned at Not on file Legal Sex Female 7:48 PM TIE MAKER Gender Identity Not on file Sexual [...] 12/24/2017 10:15 AM CDT Plan of Treatment Not on file Insurance MEDICARE MEDICARE [employer] Care Teams Pickle Sorter Relationship Specialty Start Date End Date No, Physician PCP - General 02/07/20
== END 2024-04-13 05:07 | disposition home or self-care (01) ==
PROVIDERS: Emergency Provider Emergency Medicine; PCP Internal Medicine
DX: S01.81XA Laceration without foreign body of other part of head, initial encounter (principal); I10 Essential (primary) hypertension; E03.9 Hypothyroidism, unspecified; F31.9 Bipolar disorder, unspecified; G40.909 Epilepsy, unspecified, not intractable, without status epilepticus; Z23 Encounter for immunization; W18.30XA Fall on same level, unspecified, initial encounter
CPT/HCPCS: 12011; 70450; 90471; 90715; 99284

== ENCOUNTER 2024-04-18 08:58 | Emergency (ER) | payer MEDICARE, MEDICAID, SELFPAY ==
[2024-04-18 09:37] VITALS: BP 110/84; PULSE 71; RESP 16; TEMP 36.6; O2SAT 100
--- NOTE | 2024-04-18 10:11 | ED_ITS ---
HPI - Wound/Laceration General Chief Complaint: Wound/Laceration Stated Complaint: Stitches Removal Time Seen by Provider: 04/18/24 10:04 Source: patient, RN notes reviewed and other (Facility staff) Mode of arrival: ambulatory Limitations: no limitations History of Present Illness HPI narrative: Patient has presented today for suture removal on the forehead. She fell last week requiring 5 sutures to the left forehead. Denies any difficulties. Related Data Home Medications ?Medication ?Instructions ?Recorded ?Confirmed ?Last Taken ?Type amlodipine 2.5 mg tablet 2.5 mg PO DAILY 12/25/21 04/18/24 Unknown History cholecalciferol (vitamin D3) 1 tab-cap PO DAILY 12/25/21 04/18/24 Unknown History dihydroxyaluminum sodium carb 334 mg PO 12/25/21 Unknown History mg chewable tablet iloperidone 4 mg tablet (Fanapt) mg 12/25/21 Unknown History lacosamide 200 mg tablet mg 12/25/21 Unknown History lacosamide 50 mg tablet mg 12/25/21 Unknown History levothyroxine 25 mcg tablet 25 mcg PO DAILY 12/25/21 04/18/24 Unknown History norethindrone-e.estradiol tablet 12/25/21 Unknown History triphasic 0.5 mg/0.75 mg/1 mg-35 mcg tablet (Dasetta (28)) oxcarbazepine 600 mg tablet mg 12/25/21 12/25/21 Unknown History calcium carbonate (Calcium Antacid) mg 04/18/24 Unknown History Allergies Allergy/AdvReac Type Severity Reaction Status Date / Time lithium Allergy Unknown Verified 04/18/24 09:29 Review of Systems Review of Systems: CONSTITUTIONAL: Denies body aches, fever, chills, or sweats. EYES: Denies visual changes, redness, or discharge. ENT: Denies rhinorrhea, congestion, sore throat, or otalgia. CARDIOVASCULAR: Denies chest pain, palpitations, or edema. RESPIRATORY: Denies cough or dyspnea. GASTROINTESTINAL: Denies abdominal pain, nausea, vomiting, or diarrhea. GENITOURINARY: Denies dysuria or hematuria. SKIN: Forehead laceration MUSCULOSKELETAL: Denies back pain, joint pain, or myalgia. NEUROLOGIC: Denies headache, numbness, tingling, or weakness. PSYCH: Denies depression or anxiety. PMFSH Past Medical History Medical History Hypertension Bipolar affective disorder in remission Intellectual disability Hypothyroidism Seizure disorder Social History Social History Living arrangements: intermediate Comments At time of signature, I have reviewed and agree with nursing past medical, surgical, social and family history unless otherwise noted. Please see nursing chart for further information. There is no relevant family history pertinent to the presenting complaint Exam Narrative: GENERAL: Well-appearing, well-nourished, and in no acute distress. HEAD: Normocephalic. + healing laceration to the left forehead. No erythema, edema, drainage noted. Five intact sutures noted. EYES: EOMI. No redness or drainage. Conjunctivae normal. ENT: Mucous membranes pink and moist. NECK: Normal AROM. CHEST: No respiratory distress. EXTREMITIES: Normal range of motion. No edema. SKIN: Warm, dry, no rash. Capillary refill normal. Normal skin turgor. NEURO: No focal deficits. Alert and oriented x3. Gait steady. PSYCH: Normal affect. No signs of depression or anxiety. Course Course Level of Care: Express Care Visit Vital Signs Vital signs: Vital Signs Temperature 98 F 04/18/24 09:37 Pulse Rate 71 04/18/24 09:37 Respiratory Rate 16 04/18/24 09:37 Blood Pressure 110/84 04/18/24 09:37 Pulse Oximetry 100 04/18/24 09:37 Oxygen Delivery Room Air 04/18/24 09:37 Temperature 98 F 04/18/24 09:37 Pulse Rate 71 04/18/24 09:37 Respiratory Rate 16 04/18/24 09:37 Blood Pressure 110/84 04/18/24 09:37 Pulse Oximetry 100 04/18/24 09:37 Oxygen Delivery Room Air 04/18/24 09:37 Reviewed Procedures Other Procedure Procedure 1: Other Procedure: 5 intact sutures removed from the left forehead. No signs of infection noted. Patient tolerated procedure well. MDM - Wound/Laceration MDM Narrative Medical decision making narrative: Sutures removed without difficulty. Wound seems to be healing properly. Anticipatory guidance given. Differential Diagnosis Differential diagnosis: Likely abscess and other (Suture removal) Critical Care Time Critical Care Time Critical Care Time: No Discharge Plan Discharge Clinical Impression: Visit for suture removal Patient Disposition: Home, Self-Care Condition: Stable Additional Instructions: Sutures have been removed from a knees head. There does not seem to be any signs of infection. Follow-up with her PCP with any concerns. Your blood pressure was elevated above 120/80 today at Urgent Care. This puts you above the threshold for follow up. Please schedule a followup visit with your personal physician as soon as possible, for further evaluation and treatment. Even blood pressure exceeding 120/80 may indicate pre-hypertension. Patient Language: Togolese Prescriptions: No Action calcium carbonate [Calcium Antacid] 200 mg calcium (500 mg) tablet,chewable cefdinir 300 mg capsule 300 mg PO Q12H 5 Days Qty: 10 0RF Dasetta /10/24 (28) 0.5/0.75/1 mg- 35 mcg tablet amlodipine 2.5 mg tablet 2.5 mg PO DAILY levothyroxine 25 mcg tablet 25 mcg PO DAILY oxcarbazepine 600 mg tablet lacosamide 50 mg tablet lacosamide 200 mg tablet Fanapt 4 mg tablet dihydroxyaluminum sodium carb 334 mg Tablet,Chewable PO cholecalciferol (vitamin D3) 1 tab-cap PO DAILY Follow-up/Referrals: Evan,MD Jamie [Primary Care Provider] - Time of Disposition: 10:14
== END 2024-04-18 10:18 | disposition home or self-care (01) ==
PROVIDERS: Emergency Provider Nurse Practitioner; PCP Family Medicine
DX: S01.81XD Laceration without foreign body of other part of head, subsequent encounter (principal); X58.XXXD Exposure to other specified factors, subsequent encounter; I10 Essential (primary) hypertension; E03.9 Hypothyroidism, unspecified; G40.909 Epilepsy, unspecified, not intractable, without status epilepticus; F79 Unspecified intellectual disabilities
CPT/HCPCS: 99211; G0463

== ENCOUNTER 2024-07-11 09:02 | Emergency (ER) | payer MEDICARE, MEDICAID, SELFPAY ==
--- NOTE | ~2024-07-11 | CT_ITS ---
CT brain wo con Ordering provider: Amol Joseph III DO History: 53 years Female with . head injury . Comparison: None. Technique: CT of the head without contrast. Radiation reduction technique utilized.The dose-length product was 605.33 mGy-cm. FINDINGS: BRAIN PARENCHYMA AND CSF SPACES: Mild leukoaraiosis and diffuse cortical atrophy. Mild atheromatous d isease. No midline shift, mass effect or hemorrhage. The brain parenchyma and CSF spaces are otherwi se normal. VISUALIZED PARANASAL SINUSES: Left ethmoid sinus disease. Otherwise, Well aerated. MASTOIDS: Well aerated. BONES: The bones appear intact. SOFT TISSUES: Visualized nasopharynx is normal. Superficial soft tissues are normal. IMPRESSION: No acute intracranial findings. Reviewed, dictated and finalized at location A.
[2024-07-11 09:14] VITALS: BP 113/73; PULSE 83; RESP 16; TEMP 36.4; O2SAT 99
--- OUTSIDE RECORDS SUMMARY | 2024-07-11 09:47 | XMS_ITS | Continuity of Care Document ---
Author Organization [facility] Address [address] [facility] [address] [place] [address] Phone Care Team Providers Care Fingernail Sculptor Name Role Phone Latoya Robles Unavailable Unavailable Procedures Procedure Date Office/outpatient Visit, Est Office/outpatient Visit, Est Eye Exam & Treatment Eye Exam & Treatment Advance Directives Directive Yes / No Effective Date File Name No Information Encounters Encounter Description Practice Location Reason(s) For Visit Diagnoses Date Provider Providers Copied on Encounter Office/outpat ient Visit, Est [facility], [address] [place] [address] [address], [place], [place], [id number], tel:[phone] [facility] No Information 8-201 0 Margaret Klein. [address] , [address], [place], [place], [facility], . tel:[phone] Office/outpat ient [place], [facility] [address] [place] [address] [address], [place], [place], [id number], tel:[phone] [facility] No Information 5-200 9 Margaret Parikh [address] , [address], [place], [place], [facility], . tel:[phone] [facility], [address] [place] [address] [address], [place], [place], [id number], tel:[phone] [facility] No Information 2-200 8 Margaret Klein. [address], [address], [place], [address], [place]. tel:[phone] [facility], [address], [place], [place], [address], [place] tel:[phone] [facility] No Information 6200 6 Margaret Klein. [address] , [address], [place], [address], [place]. tel:[phone] Family History Family Member Type Diagnosis Age At Onset No Information Payers Payer name Insurance type Covered alliance party ID Authoriza tion(s) [place] BL [id number] [place] CI [id number] Social History Type Description Quantity Date Captured [...]
--- OUTSIDE RECORDS SUMMARY | 2024-07-11 09:47 | XMS_ITS | Clinical Summary ---
Author Organization [facility] Address [address] [facility] [place] [facility] [place] [address] Phone Care Team Providers Care Knockdown Man Name Role Phone Armen Gordon MD Primary Care Provider Allergies Active Allergy Reactions Criticality Noted Date Comments [place] Unknown 03/03/2019 Medications Fanapt 4 MG Tablet [...] Encounters Date Type Department Care Team Description 05/09/2024 Documentation Only [facility] - Internal Medicine - [place] [address] [place] [address] Armen Gordon MD from Last 3 Months Immunizations Immunization Administration Dates Next Due Influenza Vaccine greater than 3 yrs 03/03/2019 Influenza Vaccine, Quadrivalent, PF 01/26/2023,1 Influenza,Split Virus,Trivalent,Injectable,PF Family History Medical History Relation Name Comments No Known Problems Father No Known Problems Mother Relation Name Status Comments Father Alive Mother Alive Social History Tobacco Use Types Packs/Day Years Used Date Smoking Tobacco: Never Passive Smoke Exposure: Never Smokeless Tobacco: Never Tobacco Cessation:Counseling Given: Not Answered Alcohol Use Standard Drinks/Week Comments Never 0 (1 standard drink = 0.6 oz pur e alcohol) [facility] [employer] Answer Date Recorded In the past 12 months has [email or web address] electric, gas, oil, or water company threatened [...] often do you attend chur ch or confucianist services? Patient unable to answer 07/27/2023 Active [...] Total Score - Questions 1-9 0 11/2023 [facility] - Occupational Stress [...] place to sleep or slept in a fci (including now)? 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 SAFETY DEPOSIT SUPERVISOR Gender Identity Not on file Sexual Orientation Not on file Last Filed Vital Signs Vital Sign Reading Time Taken Comments Blood Pressure 92/60 11/19/2023 1:54 PM CDT Pulse 70 11/19/2023 1:54 PM CDT Temperature 37.5 C (99.5 F) 11/19/2023 1:54 PM CDT Respiratory Rate 12 11/19/2023 1:54 PM CDT [...] 2002 Colonoscopy 2017 Colorectal Cancer Screening 2017 Mammogram 12/11/2021 12/11/2020 Cologuard 2022 Immunochemical Fecal Occult Blood 2022 Pneumococcal Immunization (50+ years) (2 of 2 - PCV) 2022 06/19/2015 Zoster Immunization (1 of 2) 2022 Cervical Cancer Screening (CCS) 01/01/2023 Pap Smear 01/01/2023 01/02/2020 SARS-COV-2 Immunization ( season) 2023 01/29/2022, 03/21/2021, 06/06/2020, Additional history exists Respiratory Syncytial Virus (RSV) Immunization (Adult) (1 - 1-dose 75+ series) 12/18/2047 Pneumococcal Immunization Combined Discontinued 06/19/2015 Discussion re Starting/Frequency of Mammograms Discontinued 12/11/2020 DTaP/Tdap/Td Immunization Discontinued 2023, 08/16/2013, 07/13/2002 TdaP Immunization Completed 07/20/2023, 08/16/2013 Influenza Immunization Completed , 01/26/2023, 01/20/2022, Additional history exists Meningococcal Immunization (ACWY) Aged Out No longer eligible based on patient's age to complete this topic Rotavirus Immunization Aged Out No lo nger eligible based on patient's age to complete this topic Procedures Procedure Name Priority Date/Time Associated Diagnosis Comments CT - HEAD/NECK 04/13/2024 12:00 AM SAFETY DEPOSIT SUPERVISOR MAMMOGRAM BILATERAL GENERIC Routine 12/11/2020 from Last 3 Months or Most Recently Relevant to Health Maintenance Results * CT - HEAD/NECK (04/13/2024 12:00 AM SAFETY DEPOSIT SUPERVISOR) 04/13/2024 us Provider Scan IMG CT ORDERABLES Final Result SCAN * MAMMOGRAM BILATERAL MISCELLANEOUS (12/11/2020) us Armen Gordon MD IMG MAMMO ORDERABLES Final Result from Last 3 Months or Most Recently Relevant to Health Maintenance Insurance MEDICARE [place]ID [place] Care Teams Knockdown Man Relationship Specialty Start Date End Date Armen Gordon MD [address] [place] [address] PCP - General Internal Medicine 06/12/19
--- NOTE | 2024-07-11 11:12 | ED.WOUNDLAC ---
HPI - Wound/Laceration General Chief Complaint: Wound/Laceration Stated Complaint: unwitnessed fall, ?seizure, head laceration Time Seen by Provider: 07/11/24 10:59 History of Present Illness HPI narrative: Pt fell this morning and hit her head. Unsure if LOC. Pt denies blurred vision or MUNGUIA. Related Data Home Medications ?Medication ?Instructions ?Recorded ?Confirmed ?Last Taken ?Type amlodipine 2.5 mg tablet 2.5 mg PO DAILY 12/25/21 04/18/24 Unknown History cholecalciferol (vitamin D3) 1 tab-cap PO DAILY 12/25/21 04/18/24 Unknown History dihydroxyaluminum sodium carb 334 mg PO 12/25/21 Unknown History mg chewable tablet iloperidone 4 mg tablet (Fanapt) mg 12/25/21 Unknown History lacosamide 200 mg tablet mg 12/25/21 Unknown History levothyroxine 25 mcg tablet 25 mcg PO DAILY 12/25/21 04/18/24 Unknown History norethindrone-e.estradiol tablet 12/25/21 Unknown History triphasic 0.5 mg/0.75 mg/1 mg-35 mcg tablet (Dasetta (28)) oxcarbazepine 600 mg tablet mg 12/25/21 12/25/21 Unknown History calcium carbonate (Calcium Antacid) mg 04/18/24 Unknown History Allergies Allergy/AdvReac Type Severity Reaction Status Date / Time lithium Allergy Unknown Verified 07/11/24 09:18 Review of Systems Review of Systems: All systems reviewed & are unremarkable except as noted in HPI and below PMFSH Past Medical History Medical History Hypertension Bipolar affective disorder in remission Intellectual disability Hypothyroidism Seizure disorder Social History Social History Living arrangements: long-term Exam Const: General: healthy appearing and no acute distress Nutritional Appearance: well nourished Orientation/consciousness: patient oriented x3 Limitations: behavioral limitations HENMT: Other: superficial laceration to scalp in hairline well approximated Eyes: EOM: EOMs intact bilaterally Resp: Effort & Inspection: normal respiratory effort Auscultation: clear to auscultation bilaterally Cardio: Rate: regular rate Rhythm: regular rhythm GI: GI Palp: Yes Soft to palpation Auscultation: normal bowel sounds Skin: General skin exam: normal color Rashes: no rashes Course Vital Signs Vital signs: Vital Signs Temperature 97.5 F L 07/11/24 09:14 Pulse Rate 83 07/11/24 09:14 Respiratory Rate 16 07/11/24 09:14 Blood Pressure 113/73 07/11/24 09:14 Pulse Oximetry 99 07/11/24 09:14 Oxygen Delivery Room Air 07/11/24 09:14 Temperature 97.5 F L 07/11/24 09:14 Pulse Rate 63 07/11/24 11:43 Respiratory Rate 20 07/11/24 11:43 Blood Pressure 117/101 H 07/11/24 11:43 Pulse Oximetry 99 07/11/24 11:43 Oxygen Delivery Room Air 07/11/24 09:14 MDM - Wound/Laceration MDM Narrative Medical decision making narrative: [place] this [place] at [place]. difficult to obtain hx. superficial lac on scalp not needing repair. will get CT head to be safe. CT head no acute findings. Pt safe to go back. Discharge Plan Discharge Clinical Impression: Head injury Patient Disposition: Home, Self-Care Condition: Stable Instructions: Antibiotic Form, Laceration (ED), Head Injury (DC) Patient Language: Macedonian Prescriptions: No Action calcium carbonate [Calcium Antacid] 200 mg calcium (500 mg) tablet,chewable Dasetta (28) 0.5/0.75/1 mg- 35 mcg tablet amlodipine 2.5 mg tablet 2.5 mg PO DAILY levothyroxine 25 mcg tablet 25 mcg PO DAILY oxcarbazepine 600 mg tablet lacosamide 200 mg tablet Fanapt 4 mg tablet dihydroxyaluminum sodium carb 334 mg Tablet,Chewable PO cholecalciferol (vitamin D3) 1 tab-cap PO DAILY Follow-up/Referrals: Evan,MD Jamie [Primary Care Provider] -
[2024-07-11 11:43] VITALS: BP 117/101; PULSE 63; RESP 20; O2SAT 99
--- OUTSIDE RECORDS SUMMARY | 2024-07-11 13:45 | XMS_ITS | Clinical Summary ---
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
--- OUTSIDE RECORDS SUMMARY | 2024-07-11 13:45 | XMS_ITS | Clinical Summary ---
Author Organization [facility] Address [address] [place] [address] Phone Care Team Providers Care Band Nailer Name Role Phone Armen Gordon MD Primary Care Provider [phone] Allergies Active Allergy Reactions Criticality Noted Date Comments [place] Unknown 03/03/2019 Medications Fanapt 4 MG Tablet [...] [facility] - [facility] - [place] [address] [place] [address] Armen Gordon MD from Last 3 [...] drink = 0.6 oz pur e alcohol) [facility] [employer] Answer Date Recorded In the past 12 months has [employer] electric, gas, oil, or water company threatened [...] Total Score - Questions 1-9 0 11/2023 [facility]at [facility] - Occupational Stress [...] place to sleep or slept in a detention (including now)? 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 TOWN ADMINISTRATOR Gender Identity Not on file Sexual Orientation [...] 11/19/2023 1:54 PM CDT Plan of Treatment Upcoming Encounters Date Type Department Care Team (Late st Contact Info) Description 07/19/2024 9:00 AM CDT Office Visit [facility] - Internal Medicine - [place] [address] [place] [id number] Armen Gordon MD [address] [place] [address] Health Maintenance Due Date Last Done Comments [...] 01/01/2023 01/02/2020 SARS-COV-2 Immunization ( season) 2023 02/15/2024, 01/29/2022, 03/21/2021, Additional history exists Respiratory Syncytial Virus (RSV) Immunization (Adult) (1 - 1-dose 75+ series) 12/18/2047 Pneumococcal Immunization Combined Discontinued 06/19/2015 Discussion re Starting/Frequency of Mammograms Discontinued 12/11/2020 DTaP/Tdap/Td Immunization Discontinued 2023, 07/20/2023, 08/16/2013, Additional history exists TdaP Immunization Completed 04/13/2024, , 08/16/2013 Influenza Immunization Completed , 01/26/2023, 01/20/2022, Additional history exists Meningococcal Immunization (ACWY) Aged Out No longer eligible based on patient's age to complete this topic Rotavirus Immunization Aged Out No lo nger eligible based on patient's age to complete this topic Procedures Procedure Name Priority Date/Time Associated Diagnosis Comments CT - HEAD/NECK 04/13/2024 12:00 AM TOWN ADMINISTRATOR MAMMOGRAM BILATERAL GENERIC Routine 12/11/2020 from Last 3 Months or Most Recently Relevant to Health Maintenance Results * CT - HEAD/NECK (04/13/2024 12:00 AM TOWN ADMINISTRATOR) 04/13/2024 us Provider Scan IMG CT ORDERABLES Final Result SCAN * MAMMOGRAM BILATERAL MISCELLANEOUS (12/11/2020) us Armen Gordon MD IMG MAMMO ORDERABLES Final Result from Last 3 Months or Most Recently Relevant to Health Maintenance Insurance MEDICARE [place]ID [place] Care Teams Band Nailer Relationship Specialty Start Date End Date Armen Gordon MD [address] [place] [address] PCP - General Internal Medicine 06/12/19
--- OUTSIDE RECORDS SUMMARY | 2024-07-11 13:45 | XMS_ITS | Continuity of Care Document ---
Author Organization [facility] Address [address] [facility] [place] [address] Phone Care Team Providers Care Window Covering Sales Consultant Name Role Phone Latoya Robles Unavailable Unavailable Procedures Procedure Date Office/outpatient Visit, Est Office/outpatient Visit, Est Eye Exam & Treatment Eye Exam & Treatment Advance Directives Directive Yes / No Effective Date File Name No Information Encounters Encounter Description Practice Location Reason(s) For Visit Diagnoses Date Provider Providers Copied on Encounter Office/outpat ient Visit, Est [facility], [address] [place] [address] [address], [place], [place], [id number], tel:[phone] [facility] No Information 8-201 0 Margaret Klein. [address] , [address], [place], [place], [facility], . tel:[phone] Office/outpat ient Visit, [facility], [address] [place] [address] [address], [place], [place], [address], tel:[phone] [facility] No Information 5-200 9 Margaret Parikh [address] , [address], [place], [place], [facility], . tel:[phone] [facility], [address] [place] [address] [address], [place], [place], [address], tel:[phone] [facility] No Information 2-200 8 Margaret Klein. [address], [place], [address], [place]. tel:[phone] [facility], [address], [place], [place], [address], [place] tel:[phone] [facility] No Information 6200 6 Margaret Klein. [address] , [address], [place], [address], [place]. tel:[phone] Family History Family Member Type Diagnosis Age At Onset No Information Payers Payer name Insurance type Covered libertarian ID Authoriza tion(s) [place] BL [id number] Medicaid [place] CI [id number] Social History Type Description Quantity Date Captured [...]
--- OUTSIDE RECORDS SUMMARY | 2024-07-11 13:45 | XMS_ITS | Referral Summary ---
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
== END 2024-07-11 12:49 | disposition home or self-care (01) ==
PROVIDERS: Emergency Provider Emergency Medicine; PCP Family Medicine
DX: S09.90XA Unspecified injury of head, initial encounter (principal); W19.XXXA Unspecified fall, initial encounter; I10 Essential (primary) hypertension; E03.9 Hypothyroidism, unspecified; G40.909 Epilepsy, unspecified, not intractable, without status epilepticus; F79 Unspecified intellectual disabilities
CPT/HCPCS: 70450; 99284

== ENCOUNTER 2025-01-17 08:46 | Emergency (ER) | payer MEDICARE, MEDICAID, SELFPAY ==
--- OUTSIDE RECORDS SUMMARY | 2009-09-04 07:30 | XMS_ITS | Continuity of Care Document ---
Author Organization [facility] Address [address] [place] [address] Phone Care Team Providers Care Design Director Name Role Phone Latoya Robles Unavailable Unavailable Procedures Procedure Date Office/outpatient Visit, Est Office/outpatient Visit, Est Eye Exam & Treatment Eye Exam & Treatment Advance Directives Directive Yes / No Effective Date File Name No Information Encounters Encounter Description Practice Location Reason(s) For Visit Diagnoses Date Provider Providers Copied on Encounter Office/outpat ient Visit, Est [facility], [address] [place] [address] [address], [place], [place], [id number], tel:[phone] [facility] No Information 8-201 0 Margaret Klein. [address] , [address], [place], [place], [facility], . tel:[phone] Office/outpat ient Visit, [facility], [address] [place] [address] [address], [place], [place], [id number], tel:[phone] [facility] No Information 5-200 9 Margaret Parikh [address] , [address], [place], [place], [facility], . tel:[phone] [facility], [address] [place] [address] [address], [place], [place], [id number], tel:[phone] [facility] No Information 2-200 8 Margaret Klein. [address], [address], [place], [address], [place]. tel:[phone] [facility], [address], [place], [place], [id number], [place] tel:[phone] [facility] No Information 6200 6 Margaret Klein. [address] , [address], [place], [address], [place]. tel:[phone] Family History Family Member Type Diagnosis Age At Onset No Information Payers Payer name Insurance type Covered republican ID Authoriza tion(s) Medicare MD BL [id number] Medicaid MD CI [id number] Social History Type Description Quantity Date Captured Comments Sex Female Smoking Status No Information Chief Complaint And Reason For Visit No Information Reason For Referral Reason For Referral No Information History Of Present Illness Encounter Date Complaint History Of Prese nt Illness No Information Functional Status Date Functional Assessmen t No Information Instructions Date Instruction Additional Infor mation No Information Assessments Type Assessment Date No Information Patient Care Teams Name Effective Dates (start - stop) Status Members No Information
--- OUTSIDE RECORDS SUMMARY | 2009-09-04 07:30 | XMS_ITS | Continuity of Care Document ---
Author Organization [facility] Address [address] [place] [address] Phone Care Team Providers Care Casino Cage Cashier Name Role Phone Latoya Robles Unavailable Unavailable Procedures Procedure Date Office/outpatient Visit, Est Office/outpatient Visit, Est Eye Exam & Treatment Eye Exam & Treatment Advance Directives Directive Yes / No Effective Date File Name No Information Encounters Encounter Description Practice Location Reason(s) For Visit Diagnoses Date Provider Providers Copied on Encounter Office/outpat ient Visit, Est [facility], [address] [place] [address] [address], [place], [place], [id number], tel:[phone] [facility] No Information 8-201 0 Margaret Klein. [address] , [address], [place], [place], [facility], . tel:[phone] Office/outpat ient Visit, [facility], [address] [place] [address] [address], [place], [place], [id number], tel:[phone] [facility] No Information 5-200 9 Margaret Parikh [address] , [address], [place], [place], [facility], . tel:[phone] [facility], [address] [place] [address] [address], [place], [place], [id number], tel:[phone] [facility] No Information 2-200 8 Margaret Klein. [address], [place], [address], [place]. tel:[phone] [facility], [address], [place], [place], [id number], [place] tel:[phone] [facility] No Information 6200 6 Margaret Klein. [address] , [address], [place], [address], [place]. tel:[phone] Family History Family Member Type Diagnosis Age At Onset No Information Payers Payer name Insurance type Covered alliance party ID Authoriza tion(s) [place] BL [id number] [place] CI [id number] Social History Type Description Quantity Date Captured [...]
--- NOTE | ~2025-01-17 | CT_ITS ---
EXAMINATION: CT facial & cervical spine wo COMPARISON: None HISTORY: trauma TECHNIQUE: Axial images were obtained with IV contrast. Sagittal, coronal reconstruction images were obtained from the axial views. Omnipaque 370, [address] scan performed using dose optimization techniques including the following automated exposure control; adjustment of mA and/or kV; use of iterative reconstruction technique. Automatic exposure control was used to reduce radiation dose. Permanent radiation dose record is archived to PACS. FINDINGS: CT facial bones: The nasal bones are intact. The anterior maxillary sinus singletary and zygomatic arches are intact. The temporomandibular joints are intact. Orbital floors and medial orbits are intact. Moderate ethmoidal and minimal right maxillary sinusitis. There is no retrobulbar hemorrhage or preseptal soft tissue swelling. Significant dental disease noted of the right maxilla. CT cervical spine: Visualized brain parenchyma and soft tissues appear unremarkable. The lung apices are unremarkable. No fracture or subluxation. The vertebral heights are intact. Posterior alignment is intact. IMPRESSION: 1. No acute fracture Reviewed, dictated and finalized at location P. IMPRESSION: 1. No acute fracture
--- NOTE | ~2025-01-17 | CT_ITS ---
EXAMINATION: CT brain wo osvaldo, 01/17/2025 9:15 CDT HISTORY: trauma COMPARISON: No comparisons available. Technique: Axial images obtained of the brain without contrast. One or more of the following dose reduction techniques were used: automated exposure control, adjustment of the mA and/or kV according to patient size, use of iterative reconstruction technique. Findings: No acute infarct or parenchymal hemorrhage. No abnormal mass or mass effect. No midline shift. No extra-axial fluid collections. No hydrocephalus. Mastoid air cells unremarkable. Sinuses and orbits unremarkable. No acute fracture. No significant facial or scalp soft tissue swelling evident. No radiopaque foreign body is seen. Impression: 1.No acute intracranial abnormality. Reviewed, dictated and finalized at location P. Impression: 1.No acute intracranial abnormality.
[2025-01-17 08:51] VITALS: BP 116/82; PULSE 87; RESP 16; TEMP 36.8; O2SAT 99
--- OUTSIDE RECORDS SUMMARY | 2025-01-17 09:01 | XMS_ITS | Clinical Summary ---
Author Organization [facility] Address [address] [place] [address] Phone Care Team Providers Care Police Patrol Lieutenant Name Role Phone Armen Gordon MD Primary Care Provider Allergies Active Allergy Reactions Criticality Noted Date Comments [place] Unknown 03/03/2019 Medications Fanapt 4 MG Tablet 0 Active Vimpat 50 MG Tablet 200 mg 2 times daily. 0 Active levothyroxine (SYNTHROID) 25 MCG Tablet 0 Active Dasetta 0.5/0.75/1-35 MG-MCG Tablet 0 Active OXcarbazepine (TRILEPTAL) 600 MG Tablet 0 Active Cholecalcifero l (VITAMIN D-3 PO) [...] before MRI 2 Tablet 1 4 Active midodrine (PROAMATINE) 5 MG Tablet Take 1 Tablet by mouth daily. 30 Tablet 5 5 Active bacitracin 500 UNIT/GM Ointment Apply every 4 hours. Active diphenhydrAMIN E (BENADRYL) 25 MG Tablet Take 25 mg by mouth every 6 hours as needed for Itching. Active hydrocortisone 1 % Cream Apply 2 times daily. Application Site: body (Description and Location) Active lacosamide (VIMPAT) 200 MG Tablet Take by mouth 2 times daily. Active lacosamide (VIMPAT) 50 MG Tablet Take by mouth 2 times daily. Active Dextromethorph an-guaiFENesin (TUSSIN DM CLEAR PO) Take by mouth. 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 03/03/2019 Undifferentiated schizophrenia 03/03/2019 Resolved Problems Problem Noted Date Diagnosed Date Resolved Date Hyperglycemia 03/11/2022 04/01/2023 Essential hypertension, benign 03/03/2019 07/28/2024 Encounters Date Type Department Care Team Description 12/13/2024 Telephone [facility] Primary Care - [place] [id number] [place] [phone] Armen Gordon MD 11/04/2024 Telephone [facility] Internal Medicine [facility] [address] [place] [address] Armen Gordon MD 10/27/2024 3:20 PM CDT Office Visit [facility] Internal Medicine [facility] [address] [place] [phone] Armen Gordon MD Orthostatic hypotension (Primary Dx); Other specified hypothyroidism Discharge Disposition: Discharged to home or Selfcare 10/26/2024 Travel from Last 3 Months Immunizations Immunization Administration [...] drink = 0.6 oz pur e alcohol) [facility] Util[employer] Answer Date Recorded In the past 12 months has e electric, gas, oil, or water company threatened to shut off services in your home? Patient unable to answer 07/27/2023 Social Connection and Isolation Panel Answer Date Recorded In a typical week, how many times do you talk on the phone with family, friends, or neighbors? Patient unable to answer 07/27/2023 How often do you get togethe r with friends or relatives? Patient unable to answer 07/27/2023 How often do you attend chur ch or scientology services? 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 Gender Identity Not on file Sexual Orientation Not on file Last Filed Vital Signs Vital Sign Reading Time Taken Comments Blood Pressure 106/60 10/27/2024 2:23 PM CDT Pulse 68 10/27/2024 2:23 PM CDT Temperature 36.7 C (98.1 F) 10/27/2024 2:23 PM CDT Respiratory Rate 12 07/28/2024 1:35 PM CDT Oxygen Saturation 99% 10/27/2024 2:23 PM CDT Inhaled Oxygen Concentration - - Weight 44.9 kg (99 lb) 10/27/2024 2:23 PM CDT Height 157.5 cm (5' 2) 10/27/2024 2:23 PM CDT Body Mass Index 18.11 10/27/2024 2:23 PM CDT Plan of Treatment Upcoming Encounters Date Type Department Care Team (Late st Contact Info) Description 05/01/2025 11:00 AM CASTING ROOM HELPER Office Visit [facility] - Primary [facility] - [place] [address] [place] [address] Armen Gordon MD [address] [place] [address] Health Maintenance Due Date Last Done Comments Hepatitis C Virus (HCV) Screening 1972 Hepatitis B Immunization (1 of 3 - 19+ 3-dose series) 12/18/1991 Medicare Initial AWV [id number] 12/20/1999 HPV/Cotest 2002 Cologuard 2017 Colonoscopy 2017 Immunochemical Fecal Occult Blood 2017 Mammogram 12/11/2021 12/11/2020 Pneumococcal Immunization (50+ years) (2 of 2 - PCV) 2022 06/19/2015 Zoster Immunization (1 of 2) 2022 Influenza Immunization (#1) 12/19/202401/19, 01/26/2023, 01/20/2022, Additional history exists Cervical Cancer Screening (CCS) 08/05/2025 Pap Smear 08/05/2025 08/05/2022, 01/02/2020 Respiratory Syncytial Virus (RSV) Immunization (Adult) (1 - 1-dose 75+ series) 12/18/2047 Pneumococcal Immunization Combined Discontinued 06/19/2015 Discussion re Starting/Frequency of Mammograms Discontinued 12/11/2020 SARS-COV-2 Immunization Completed 02/15/20, 01/29/2022, 03/21/2021, Additional history exists DTaP/Tdap/Td Immunization Discontinued 2023, 07/20/2023, 08/16/2013, Additional history exists TdaP Immunization Completed 04/13/2024, , 08/16/2013 Colorectal Cancer Screening Discontinued Human Papillomavirus (HPV) Immunization Aged Out No longer eligible based on patient's age to complete this topic Meningococcal Immunization (ACWY) Aged Out No longer eligible based on patient's age to complete this topic Rotavirus Immunization Aged Out No lo nger eligible based on patient's age to complete this topic Procedures Procedure Name Priority Date/Time Associated Diagnosis Comments MAMMOGRAM BILATERAL GENERIC Routine 12/11/2020 from Last 3 Months or Most Recently Relevant to Health Maintenance Results * MAMMOGRAM BILATERAL MISCELLANEOUS (12/11/2020) Armen Gordon MD IM MAMMO ORDERABLES Final Result from Last 3 Months or Most Recently Relevant to Health Maintenance Insurance MEDICARE [place]ID [place] Care Teams Police Patrol Lieutenant Relationship Specialty Start Date End Date Armen Gordon MD PCP - General Internal Medicine 06/12/19
--- OUTSIDE RECORDS SUMMARY | 2025-01-17 09:01 | XMS_ITS | Clinical Summary ---
Author Organization [facility] at the Medical Office Building Address [address] [place] [id number] Care Team Providers Care Inspector Precision Name Role Phone No, Physician Primary Care Provider [phone] Allergies Active Allergy Reactions Criticality Noted Date Comments [place] Hives,Unknown Medium 03/03/2019 Sleep Medications Dasetta , [...] intellectual disability Articulation disorder Partial seizure disorder Hypothyroidism Bipolar affective disorder (HCC) Osteoporosis Anemia Hypertension Schizophrenia Vitamin D deficiency Social History Tobacco Use Types Packs/Day Years Used Date Smoking Tobacco: Never Passive Smoke Exposure: Never Smokeless Tobacco: Never Tobacco Cessation:Counseling Given: Not Answered Personal Safety Answer Date Recorded Getting School Help Needed Not on file 04/05 Comments No Sex and Gender Information Value Date Recorded Sex Assigned at Not on file Legal Sex Female 7:48 PM IMMIGRATION SPECIALIST Gender Identity Not on file Sexual [...] 1:39 PM CDT Height 142.2 cm (4' 8) 12/24/2017 10:15 AM CDT Body Mass Index [...] 08/17/2023 08/16/2013, 07/13/2002 Covid-19 Vaccine ( season) 2024 01/29/2022, 03/21/2021, 06/06/2020, Additional history exists Influenza Vaccine (#1) 2024 , 01/26/2023, 01/29/2022, Additional history exists Pneumococcal vaccine <65 Aged Out 06/19/2015 No longer eligible based on patient's age to complete this topic Insurance MEDICARE MEDICARE [facility] Care Teams Inspector Precision Relationship Specialty Start Date End Date No, Physician PCP - General 02/07/20
--- OUTSIDE RECORDS SUMMARY | 2025-01-17 09:01 | XMS_ITS | Patient Health Record ---
Author Organization [facility] Address [address] [place] [address] Care Team Providers Care Residential Specialist Name Role Phone Vira Elias Unavailable [phone] Reason For Referral No Information Medications Medication SIG (Take, Route, Frequency, Duration) Notes Start Date End Date Status LORazepam 0.5 MG Tablet Oral 08/28/2022 Active Vitamin D3 Gummies 25 MCG (1000 UT) Tablet Chewable Oral *Reorder from [employer] for eRx and Interaction Alerts* 08/28/2022 Active Folic Acid 1 MG Tablet Oral 08/28/2022 Active DASETTA 0.5/0.75/1 mg- 35 mcg Tablet Oral *Reorder from [employer] for eRx and Interaction Alerts* 08/28/2022 Active amLODIPine Besylate 2.5 MG Tablet Oral 08/28/2022 Active Multivitamin Adults Tablet Oral 08/28/2022 Active Fanapt 4 mg Tablet Oral 08/28/2022 Active LACOSAMIDE 50 MG TABLET *Reorder from [employer] for eRx and Interaction Alerts* 08/28/2022 Active Levothyroxine Sodium 25 MCG Tablet Oral 08/28/2022 Active OXcarbazepine 600 MG Tablet Oral 08/28/2022 Active LACOSAMIDE 200 MG TABLET *Reorder from [employer] for eRx and Interaction Alerts* 08/28/2022 Active ANTACID 200 MG ( CALCIUM CARBONATE 500 MG) CHEWABLE TABLET *Reorder from [employer] for eRx and Interaction Alerts* 08/28/2022 Active Immunizations Vaccine Route Administration Date Status Comme nts COVID-19 (SARS-COV-2) vaccin e, unspecified Unknown 05/16/2020 Administered COVID-19 (SARS-COV-2) vaccin e, unspecified Unknown 06/06/2020 Administered Influenza virus vaccine, quadrivalent (IIV4), split virus, 0.25 mL dosage Unknown 12/28/2018 Administered Influenza virus vaccine, quadrivalent (IIV4), split virus, 0.25 mL dosage Unknown 02/07/2020 Administered Novel [id number], preservative free Unknown 02/19/2017 Administered Novel [id number], preservative free Unknown 02/19/2018 Administered Pfizer Biontech Covid-19 Vac cine 2nd dose Unknown 05/16/2020 Administered Pfizer Biontech Covid-19 Vac cine 2nd dose Unknown 06/06/2020 Administered Pneumococcal polysaccharide PPV23 Unknown 06/19/2015 Ad ministered Td (adult), adsorbed Unknown 07/13/2002 Administered Tdap Unknown 08/16/2013 Administered Social History Social History Additional Details Category Social Info Options Details Migrated Social History Migrated Social History Alcohol Intake: None 12/30/2018,Tobacco Years: Never smoker 12/30/2018,Smoking Status: 0 12/30/2018 Plan Of Treatment No Information Insurance Providers Payer Name Payer Address Payer Phone Subscriber Number Group Number Insured Name Patient Relationship to Insured Coverage Start Date Coverage End Date Medicare-I l Medicare [address] [place] [phone] [id number] BAUDILIO SHEPHERD Self - patient is the insured Medicaid-[place] l Medicaid [address] [address] [place] [address] [id number] BAUDILIO SHEPHERD Self - patient is the insured
--- NOTE | 2025-01-17 09:05 | ED_ITS ---
HPI - General Adult General Chief complaint: Fall Stated complaint: fall, struck head Time Seen by Provider: 01/17/25 08:56 History of Present Illness HPI narrative: 54-year-old female presents to the emergency department for evaluation after having a fall with head injury. Patient was attempting to sit on the couch, missed and struck her face on the hard part of the couch per a caregiver. Patient is at her baseline. Patient does complain neck pain. patient does have a superficial laceration to the bridge of her nose. Patient denies any other pain or injury. Patient does have history of seizure disorder, intellectual disability and bipolar affective disorder and hypertension Related Data Home Medications ?Medication ?Instructions ?Recorded ?Confirmed ?Last Taken ?Type amlodipine 2.5 mg tablet 2.5 mg PO DAILY 12/25/21 Unknown History cholecalciferol (vitamin D3) 1 tab-cap PO DAILY 04/18/24 Unknown History dihydroxyaluminum sodium carb 334 mg PO 12/25/21 Unkn own History mg chewable tablet iloperidone 4 mg tablet (Fanapt) mg 12/25/21 Unknown History lacosamide 200 mg tablet mg 12/25/21 Unknown History levothyroxine 25 mcg tablet 25 mcg PO DAILY 12/25/21 1 Unknown History norethindrone-e.estradiol tablet 12/25/21 Unknown His tory triphasic 0.5 mg/0.75 mg/1 mg-35 mcg tablet (Dasetta (28)) oxcarbazepine 600 mg tablet mg 12/25/21 12/25/21 Unkno wn History calcium carbonate (Calcium Antacid) mg 04/18/24 Unkno wn History Allergies Allergy/AdvReac Type Severity Reaction Status Date / Time lithium Allergy Unknown Verified 01/17/25 08:57 Review of Systems Review of Systems: All systems reviewed & are unremarkable except as noted in HPI and below PMFSH Past Medical History Medical History Hypertension Bipolar affective disorder in remission Intellectual disability Hypothyroidism Seizure disorder Social History Social History Living arrangements: half-way Exam Narrative: APPEARANCE: Well appearing, no pain, no distress, well-nourished. HEAD: normocephalic, superficial laceration across bridge of nose that does not need repair EYES: PERRLA/EOMI, conjunctivae clear. NOSE: Normal no drainage EARS:TMS clear with good light reflex. THROAT: Pharynx clear, no exudate. NECK: Supple. No adenopathy, no masses. RESPIRATORY: Airway patent, respirations nonlabored. Clear to auscultation bilaterally, no rales, rhonchi, wheezing. CARDIOVASCULAR: Regular rate and rhythm without murmurs rubs or gallops. ABDOMINAL: Soft, nontender, nondistended, normal bowel sounds MUSCULOSKELETAL: Moves all extremities. Strength/ROM intact, No edema, No calf tenderness. NEURO: Alert. Cranial nerves II through XII intact. Good gait. Good coordination SKIN: Warm, dry. Normal Color Course Vital Signs Vital signs: Vital Signs Temperature 98.2 F 01/17/25 08:51 Pulse Rate 87 01/17/25 08:51 Respiratory Rate 16 01/17/25 08:51 Blood Pressure 116/82 01/17/25 08:51 Pulse Oximetry 99 01/17/25 08:51 Oxygen Delivery Room Air 01/17/25 08:51 Temperature 98.2 F 01/17/25 08:51 Pulse Rate 73 01/17/25 10:10 Respiratory Rate 16 01/17/25 10:10 Blood Pressure 127/80 01/17/25 10:10 Pulse Oximetry 100 01/17/25 10:10 Oxygen Delivery Room Air 01/17/25 08:51 Medical Decision Making [facility] Narrative Medical decision making narrative: 54-year-old female presented to the emergency department for evaluation after having a ground level fall. Patient does have an abrasion to her nose but patient had negative facial, brain and cervical spine CT. Patient denies any other pain or injury. Patient and caregiver were updated the results of the workup. Differential Diagnosis Differential Diagnosis: Facial fracture, subdural hematoma, subarachnoid hemorrhage, cervical spine fracture, contusion, concussion Vital Signs Vital Signs: Vital Signs Temperature 98.2 F 01/17/25 08:51 Pulse Rate 87 01/17/25 08:51 Respiratory Rate 16 01/17/25 08:51 Blood Pressure 116/82 01/17/25 08:51 Pulse Oximetry 99 01/17/25 08:51 Oxygen Delivery Room Air 01/17/25 08:51 Temperature 98.2 F 01/17/25 08:51 Pulse Rate 73 01/17/25 10:10 Respiratory Rate 16 01/17/25 10:10 Blood Pressure 127/80 01/17/25 10:10 Pulse Oximetry 100 01/17/25 10:10 Oxygen Delivery Room Air 01/17/25 08:51 Imaging Data Radiologist's impression: Impressions Head CT 01/17/25 09:29 Impression: 1.No acute intracranial abnormality. Head/Cervical Spine/Facial Bones CT 01/17/25 09:30 IMPRESSION: 1. No acute fracture Discharge Plan Discharge Clinical Impression: Head injury, Injury to nose Patient Disposition: NH Halfway/Asst Living Condition: Stable Instructions: Antibiotic Form, Head Injury (ED) Additional Instructions: Have close follow-up with your primary care physician. Patient Language: [place] Prescriptions: No Action calcium carbonate [Calcium Antacid] 200 mg calcium (500 mg) tablet,chewable Dasetta (28) 0.5/0.75/1 mg- 35 mcg tablet amlodipine 2.5 mg tablet 2.5 mg PO DAILY levothyroxine 25 mcg tablet 25 mcg PO DAILY oxcarbazepine 600 mg tablet lacosamide 200 mg tablet Fanapt 4 mg tablet dihydroxyaluminum sodium carb 334 mg Tablet,Chewable PO cholecalciferol (vitamin D3) 1 tab-cap PO DAILY Follow-up/Referrals: Evan,MD Jamie [Primary Care Provider, Unknown]
--- OUTSIDE RECORDS SUMMARY | 2025-01-17 09:21 | XMS_ITS | Clinical Summary ---
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
--- OUTSIDE RECORDS SUMMARY | 2025-01-17 09:21 | XMS_ITS | Clinical Summary ---
Author Organization [facility] Address [address] [place] [address] Phone Care Team Providers Care Rocket Scientist Name Role Phone Armen Gordon MD Primary Care Provider [phone] Allergies Active Allergy Reactions Criticality Noted Date Comments [place] Unknown 03/03/2019 Medications Fanapt 4 MG Tablet [...] Type Department Care Team Description 12/13/2024 Telephone [facility] Primary Care - [address] [id number] [place] [id number] Armen Gordon MD 11/04/2024 Telephone [facility] Internal [facility] [address] [place] [address] Armen Gordon MD 10/27/2024 3:20 PM CDT Office Visit [facility] Internal Medicine [facility] [address] [place] [id number] Armen Gordon MD Orthostatic hypotension (Primary Dx); [...] = 0.6 oz pur e alcohol) [facility] Utilities Answer Date Recorded In the past [...] often do you attend chur ch or hindu services? Patient unable to answer 07/27/2023 Active [...] Total Score - Questions 1-9 0 11/2023 [facility] [...] place to sleep or slept in a group home (including now)? 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
[2025-01-17 10:10] VITALS: BP 127/80; PULSE 73; RESP 16; O2SAT 100
== END 2025-01-17 10:15 | disposition home or self-care (01) ==
PROVIDERS: Emergency Provider Emergency Medicine; PCP Family Medicine
DX: S01.21XA Laceration without foreign body of nose, initial encounter (principal); I10 Essential (primary) hypertension; E03.9 Hypothyroidism, unspecified; G40.909 Epilepsy, unspecified, not intractable, without status epilepticus; W08.XXXA Fall from other furniture, initial encounter
CPT/HCPCS: 70450; 70486; 72125; 99284